=== PATIENT | female | born 1960 | race Caucasian/White ===

== ENCOUNTER → 2017-12-25 07:20 | Outpatient (CLI) | payer BC, SELFPAY ==
[2017-12-25 08:03] LABS: Basophils % 0.9 % (0.1-2.0); Eosinophils # 0.1 K/mm3 (0.0-0.4); Eosinophils % 2.4 % (0.1-12.0); Hematocrit 44.7 % (37.0-47.0); Hemoglobin 14.8 g/dL (12.2-16.2); Lymphocytes # 1.1 K/mm3 (0.7-4.5); Lymphocytes % 40.4 K/mm3 (10-50); Mean Corpuscular Hemoglobin 30.8 pg (27.0-31.2); Mean Corpuscular Volume 93.3 fl (81-99); Mean Platelet Volume 7.4 fl (7.4-10.4); Monocytes # 0.2 K/mm3 (0.1-1.0); Monocytes % 6.2 % (1.7-9.3); Neutrophils # 1.4 K/mm3 (1.8-7.8); Neutrophils % 50.2 % (37.0-80.0); Platelet Count 144 K/mm3 (142-424); Red Blood Count 4.79 M/mm3 (4.20-5.40); Red Cell Distribution Width 12.3 % (11.5-17.5); White Blood Count 2.8 K/mm3 (4.8-10.8)
[2017-12-25 08:34] LABS: Alanine Aminotransferase 67 U/L (12-78); Albumin Level 3.8 gm/dL (3.4-5.0); Albumin/Globulin Ratio 1.1 (1.1-1.8); Alkaline Phosphatase 96 U/L (46-116); Anion Gap 7.1 mEq/L (5-15); Aspartate Amino Transferase 56 U/L (15-37); Bilirubin,Total 0.3 mg/dL (0.2-1.0); Blood Urea Nitrogen 24 mg/dL (7-18); Calcium 9.8 mg/dL (8.5-10.1); Carbon Dioxide 33 mmol/L (21.0-32.0); Chloride 107 mmol/L (98-107); Creatinine,Serum 0.99 mg/dL (0.55-1.02); Estimated Glomerular Filt Rate 58 ml/min (>60); GFR (African American) 70 ML/MIN (>60); Globulin 3.4 gm/dl (1.3-3.2); Glucose 99 mg/dL (74-106); Potassium 5.1 mmoL/L (3.5-5.1); Sodium 142 mmol/L (136-145); Total Protein,Serum 7.2 gm/dL (6.4-8.2)
[2017-12-25 08:36] LABS: C-Reactive Protein < 0.2 mg/L (0.0-0.9)
[2017-12-25 09:01] LABS: Erythrocyte Sedimentation Rate 10 mm/hr (0-30)
== END ==
PROVIDERS: PCP Internal Medicine Adolescent Medicine; Visit Provider Internal Medicine
DX: L40.50 Arthropathic psoriasis, unspecified (principal); Z51.81 Encounter for therapeutic drug level monitoring
CPT/HCPCS: 36415; 80053; 85025; 85651; 86140

== ENCOUNTER → 2018-02-22 10:43 | Outpatient (CLI) | payer BC, SELFPAY ==
--- NOTE | 2018-02-22 10:45 | MM_ITS ---
MM Dig screening mamm BI w/CAD CAD Screening COMPARISON: Digital mammograms with CAD 03/25/2017 and 03/05/2016 INDICATION: There is no personal or family history of breast cancer TECHNIQUE: Standard CC and MLO images were obtained. R2 CAD reviewed. FINDINGS: Again noted is a markedly dense and somewhat homogeneous parenchymal pattern definitely lessening the sensitivity of mammography. The findings on the lateral symmetrical. There is no new or suspicious lesion in either breast and there are no suspicious microcalcifications. IMPRESSION: Diffusely dense parenchymal pattern with no suspicious lesion seen BI-RADS Category: 1 Negative RECOMMENDED FOLLOW-UP: 1YR - 1 YEAR FOLLOW-UP (A letter has been sent to the patient regarding results of the study.)
== END ==
PROVIDERS: PCP Internal Medicine Adolescent Medicine; Visit Provider Nurse Practitioner Obstetrics & Gynecology
DX: Z12.31 Encounter for screening mammogram for malignant neoplasm of breast (principal)
CPT/HCPCS: 77067

== ENCOUNTER → 2018-04-09 07:05 | Outpatient (CLI) | payer BC, SELFPAY ==
[2018-04-09 07:32] LABS: Basophils % 0.8 % (0.1-2.0); Eosinophils # 0.1 K/mm3 (0.0-0.4); Eosinophils % 1.5 % (0.1-12.0); Hematocrit 39.9 % (37.0-47.0); Hemoglobin 12.9 g/dL (12.2-16.2); Lymphocytes # 0.8 K/mm3 (0.7-4.5); Lymphocytes % 26.5 K/mm3 (10-50); Mean Corpuscular HGB Conc 32.4 g/dL (31.8-35.4); Mean Corpuscular Hemoglobin 29.8 pg (27.0-31.2); Mean Platelet Volume 7.9 fl (7.4-10.4); Monocytes # 0.2 K/mm3 (0.1-1.0); Monocytes % 5.1 % (1.7-9.3); Platelet Count 119 K/mm3 (142-424); Red Blood Count 4.34 M/mm3 (4.20-5.40); Red Cell Distribution Width 13.2 % (11.5-17.5)
[2018-04-09 08:54] LABS: Alanine Aminotransferase 63 U/L (12-78); Albumin Level 3.6 gm/dL (3.4-5.0); Albumin/Globulin Ratio 1.1 (1.1-1.8); Alkaline Phosphatase 71 U/L (46-116); Anion Gap 5.3 mEq/L (5-15); Aspartate Amino Transferase 40 U/L (15-37); Bilirubin,Total 0.5 mg/dL (0.2-1.0); Blood Urea Nitrogen 23 mg/dL (7-18); Calcium 9.9 mg/dL (8.5-10.1); Carbon Dioxide 34 mmol/L (21.0-32.0); Chloride 104 mmol/L (98-107); Creatinine,Serum 1.06 mg/dL (0.55-1.02); Estimated Glomerular Filt Rate 54 ml/min (>60); Free T4 (Free Thyroxine) 0.72 ng/dl (0.76-1.46); GFR (African American) 65 ML/MIN (>60); Globulin 3.2 gm/dl (1.3-3.2); Glucose 94 mg/dL (74-106); Potassium 4.3 mmoL/L (3.5-5.1); Sodium 139 mmol/L (136-145); Thyroid Stimulating Hormone 4.14 uIU/ml (0.358-3.740); Total Protein,Serum 6.8 gm/dL (6.4-8.2)
[2018-04-10 19:09] LABS: Thyroid Peroxidase Antibodies 8 IU/mL (0-34)
== END ==
PROVIDERS: PCP Internal Medicine Adolescent Medicine; Visit Provider Internal Medicine
DX: E03.9 Hypothyroidism, unspecified (principal); D89.9 Disorder involving the immune mechanism, unspecified; L40.50 Arthropathic psoriasis, unspecified
CPT/HCPCS: 36415; 80053; 84439; 84443; 85025; 86376

== ENCOUNTER → 2018-09-10 07:27 | Outpatient (CLI) | payer BC, SELFPAY ==
[2018-09-10 08:33] LABS: Basophils % 0.9 % (0.1-2.0); Eosinophils # 0.1 K/mm3 (0.0-0.4); Eosinophils % 2.7 % (0.1-12.0); Hematocrit 41.1 % (37.0-47.0); Hemoglobin 13.2 g/dL (12.2-16.2); Lymphocytes # 1.1 K/mm3 (0.7-4.5); Lymphocytes % 40.3 % (10-50); Mean Corpuscular HGB Conc 32.2 g/dL (31.8-35.4); Mean Corpuscular Hemoglobin 28.4 pg (27.0-31.2); Mean Corpuscular Volume 88.3 fl (81-99); Mean Platelet Volume 7.5 fl (7.4-10.4); Monocytes # 0.1 K/mm3 (0.1-1.0); Monocytes % 5.3 % (1.7-9.3); Neutrophils # 1.4 K/mm3 (1.8-7.8); Neutrophils % 50.7 % (37.0-80.0); Platelet Count 131 K/mm3 (142-424); Red Blood Count 4.65 M/mm3 (4.20-5.40); White Blood Count 2.7 K/mm3 (4.8-10.8)
[2018-09-10 09:17] LABS: Erythrocyte Sedimentation Rate 13 mm/hr (0-30)
[2018-09-10 09:26] LABS: Alanine Aminotransferase 65 U/L (12-78); Albumin Level 3.7 gm/dL (3.4-5.0); Albumin/Globulin Ratio 1.2 (1.1-1.8); Alkaline Phosphatase 67 U/L (46-116); Anion Gap 11.3 mEq/L (5-15); Aspartate Amino Transferase 44 U/L (15-37); Bilirubin,Total 0.4 mg/dL (0.2-1.0); Blood Urea Nitrogen 26 mg/dL (7-18); Calcium 9.5 mg/dL (8.5-10.1); Carbon Dioxide 30 mmol/L (21.0-32.0); Chloride 105 mmol/L (98-107); Creatinine,Serum 0.85 mg/dL (0.55-1.02); Estimated Glomerular Filt Rate 69 ml/min (>60); GFR (African American) 84 ML/MIN (>60); Potassium 4.3 mmoL/L (3.5-5.1); Sodium 142 mmol/L (136-145); Total Protein,Serum 6.7 gm/dL (6.4-8.2)
[2018-09-10 09:35] LABS: Free T4 (Free Thyroxine) 0.85 ng/dl (0.76-1.46); Thyroid Stimulating Hormone 2.07 uIU/ml (0.358-3.740)
[2018-09-10 09:42] LABS: C-Reactive Protein < 0.2 mg/L (0.0-0.9)
[2018-09-10 10:04] LABS: Glucose 45 mg/dL (74-106)
[2018-09-11 16:11] LABS: Hep A Ab, IgM Negative (Negative); Hepatitis B Core Antibody IgM Negative (Negative); Hepatitis B Surface Antigen Negative (Negative)
[2018-09-11 17:21] LABS: Hepatitis C Antibody <0.1 s/co ratio (0.0-0.9)
== END ==
PROVIDERS: Internal Medicine Endocrinology, Diabetes & Metabolism; Visit Provider Internal Medicine
DX: L40.50 Arthropathic psoriasis, unspecified (principal); D89.9 Disorder involving the immune mechanism, unspecified; R53.83 Other fatigue; E03.9 Hypothyroidism, unspecified
CPT/HCPCS: 36415; 80053; 80074; 84439; 84443; 85025; 85651; 86140

== ENCOUNTER → 2018-11-12 07:04 | Outpatient (CLI) | payer BC, SELFPAY ==
[2018-11-12 08:23] LABS: Alanine Aminotransferase 60 U/L (12-78); Albumin Level 3.8 gm/dL (3.4-5.0); Albumin/Globulin Ratio 1.1 (1.1-1.8); Alkaline Phosphatase 72 U/L (46-116); Anion Gap 9.1 mEq/L (5-15); Aspartate Amino Transferase 41 U/L (15-37); Bilirubin,Total 0.4 mg/dL (0.2-1.0); Blood Urea Nitrogen 22 mg/dL (7-18); Calcium 10.2 mg/dL (8.5-10.1); Carbon Dioxide 34 mmol/L (21.0-32.0); Chloride 105 mmol/L (98-107); Chol/HDL Ratio 2.4 (1-3.5); Cholesterol 189 mg/dL (140-200); Creatinine,Serum 0.91 mg/dL (0.55-1.02); Estimated Glomerular Filt Rate 64 ml/min (>60); Free T4 (Free Thyroxine) 0.82 ng/dl (0.76-1.46); GFR (African American) 77 ML/MIN (>60); Globulin 3.5 gm/dl (1.3-3.2); HDL Cholesterol 80 mg/dL (29-89); LDL Cholesterol 96 mg/dL (0-130); Potassium 5.1 mmoL/L (3.5-5.1); Sodium 143 mmol/L (136-145); Thyroid Stimulating Hormone 1.24 uIU/ml (0.358-3.740); Total Protein,Serum 7.3 gm/dL (6.4-8.2); Triglycerides 63 mg/dL (30-200); VLDL Cholesterol 13 mg/dL (0-40)
[2018-11-12 08:44] LABS: Glucose 45 mg/dL (74-106)
[2018-11-13 21:30] LABS: Microalbumin, Urine <3.0 ug/mL (Not Estab.)
== END ==
PROVIDERS: Visit Provider Internal Medicine Endocrinology, Diabetes & Metabolism
DX: E10.69 Type 1 diabetes mellitus with other specified complication (principal); E03.9 Hypothyroidism, unspecified
CPT/HCPCS: 36415; 80053; 80061; 82043; 84439; 84443

== ENCOUNTER → 2019-04-26 15:41 | Outpatient (CLI) | payer BC, SELFPAY ==
--- NOTE | 2019-04-26 15:42 | MM_ITS ---
PROCEDURE: MM DIG SCREENING MAMM BI W/CAD Patient Age:58Y CLINICAL INDICATION: routine screening mammogram No hormones but no new complaints. Noncontributory family history. COMPARISON: DIGMAMMS MAMMOGRAM SCREEN-SENIOR PATROL AGENT N/C from 05/25/2006 DIGMAMMDX MAMMOGRAM DX-SENIOR PATROL AGENT N/C from 06/10/2006 DIGMAMMS MAMMOGRAM SCREEN-SENIOR PATROL AGENT N/C from 07/26/2007 [facility]B DIGITAL MAMM-SCREEN BILATERAL from 10/21/2010 D[facility]B DIGITAL MAMM-SCREEN BILATERAL from 09/13/2012 DMDXUAVL DIG MAMM-DX UNI ADD VIEWS-LT from 09/28/2012 D[facility]B DIG MAMM-SCREEN KACY from 01/22/2014 D[facility]B DIG MAMM-SCREEN KACY from 03/05/2016 DMSB DIG MAMM-SCREEN KACY W/CAD from 03/25/2017 [facility] MM Dig screening mamm BI w/CAD from 02/22/2018 TECHNIQUE: Standard CC and MLO images were obtained. R2 CAD reviewed. Additional right MLO nipple profile views included FINDINGS: Diffuse vishnu increased density throughout both breast but dense breast tissue most evident anterior breast retroareolar region but and extending from this area into the remainder of the breast. Mammography is a significant decrease sensitivity in breast of this diffuse prominent increased density as areas can be obscured. However when compared to multiple prior studies I see no dominant nor new suspicious mass but no architecture distortion. The area of density superior left breast has been on multiple studies dating back to at least 2010 digital exam. When projection and a technique is considered I see no convincing change here. Follow-up 1 year adequate CADComputer review highlights no significant areas of concern. . Would encourage breast examination including self-breast examination and if any focal or palpable areas arise ultrasound is a useful complement/augment to mammography within breast of this increased density No new suspicious nor dominant mass nor suspicious calcifications. No suspicious calcifications IMPRESSION: 1. Very dense breasts tissue bilaterally significantly decreases sensitivity of mammography. 2. However see no new areas of significant concern . Overall stable mammogram No new suspicious nor dominant mass nor suspicious calcifications. No suspicious calcifications 3. Follow-up 1 year recommended BI-RAD Category: 2 Benign Finding(s) FOLLOW-UP: 1YR 1 Year Follow-up (A letter has been sent to the patient regarding results of the study.) Dictated by: Omar Hyman MD 04/28/2019 10:00 Electronically signed by Omar Hyman MD in [place] 04/28/2019 10:00
== END ==
PROVIDERS: PCP Internal Medicine Adolescent Medicine; Visit Provider Nurse Practitioner Obstetrics & Gynecology
DX: Z12.31 Encounter for screening mammogram for malignant neoplasm of breast (principal)
CPT/HCPCS: 77067

== ENCOUNTER → 2019-06-03 07:05 | Outpatient (CLI) | payer BC, SELFPAY ==
[2019-06-03 07:29] LABS: Eosinophils # 0.1 K/mm3 (0.0-0.4); Eosinophils % 1.5 % (0.1-12.0); Hematocrit 47.4 % (37.0-47.0); Lymphocytes # 1.2 K/mm3 (0.7-4.5); Lymphocytes % 37.6 % (10-50); Mean Corpuscular HGB Conc 31.6 g/dL (31.8-35.4); Mean Corpuscular Hemoglobin 29.5 pg (27.0-31.2); Mean Corpuscular Volume 93.3 fl (81-99); Monocytes # 0.2 K/mm3 (0.1-1.0); Monocytes % 6.4 % (1.7-9.3); Neutrophils # 1.7 K/mm3 (1.8-7.8); Neutrophils % 53.6 % (37.0-80.0); Platelet Count 166 K/mm3 (142-424); Red Blood Count 5.08 M/mm3 (4.20-5.40); Red Cell Distribution Width 13.2 % (11.5-17.5); White Blood Count 3.2 K/mm3 (4.8-10.8)
[2019-06-03 08:46] LABS: Erythrocyte Sedimentation Rate 13 mm/hr (0-30)
[2019-06-03 08:54] LABS: Alanine Aminotransferase 59 U/L (12-78); Albumin Level 3.9 gm/dL (3.4-5.0); Albumin/Globulin Ratio 1.1 (1.1-1.8); Alkaline Phosphatase 93 U/L (46-116); Anion Gap 10.2 mEq/L (5-15); Aspartate Amino Transferase 44 U/L (15-37); Bilirubin,Total 0.5 mg/dL (0.2-1.0); Blood Urea Nitrogen 21 mg/dL (7-18); Calcium 9.9 mg/dL (8.5-10.1); Carbon Dioxide 31 mmol/L (21.0-32.0); Chloride 104 mmol/L (98-107); Creatinine,Serum 1.01 mg/dL (0.55-1.02); Estimated Glomerular Filt Rate 56 ml/min (>60); GFR (African American) 68 ML/MIN (>60); Globulin 3.5 gm/dl (1.3-3.2); Glucose 56 mg/dL (74-106); Potassium 4.2 mmoL/L (3.5-5.1); Sodium 141 mmol/L (136-145); Total Protein,Serum 7.4 gm/dL (6.4-8.2)
[2019-06-03 08:59] LABS: Chol/HDL Ratio 1.9 (1-3.5); Cholesterol 191 mg/dL (140-200); HDL Cholesterol 103 mg/dL (29-89); LDL Cholesterol 79 mg/dL (0-130); Thyroid Stimulating Hormone 2.19 uIU/ml (0.358-3.740); Triglycerides 47 mg/dL (30-200); VLDL Cholesterol 9 mg/dL (0-40)
[2019-06-03 09:04] LABS: C-Reactive Protein < 0.2 mg/dL (0.0-0.9)
[2019-06-06 12:57] LABS: Microalbumin, Urine 36.1 ug/mL (Not Estab.)
== END ==
PROVIDERS: Internal Medicine Endocrinology, Diabetes & Metabolism; Visit Provider Nurse Practitioner Women's Health
DX: D89.9 Disorder involving the immune mechanism, unspecified (principal); L40.50 Arthropathic psoriasis, unspecified; E10.69 Type 1 diabetes mellitus with other specified complication; E03.9 Hypothyroidism, unspecified
CPT/HCPCS: 36415; 80053; 80061; 82043; 84439; 84443; 85025; 85651; 86140

== ENCOUNTER 2020-01-30 16:04 | Emergency (ER) | payer OTHER, SELFPAY ==
[2020-01-30 16:06] VITALS: BP 149/78; PULSE 78; RESP 18; TEMP 36.6; O2SAT 98
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
[2020-01-30 16:42] VITALS: BP 134/74; PULSE 78; RESP 16; TEMP 36.6; O2SAT 98
== END 2020-01-30 16:44 | disposition home or self-care (01) ==
PROVIDERS: Emergency Provider Family Medicine; PCP Internal Medicine Adolescent Medicine
DX: T07.XXXA Unspecified multiple injuries, initial encounter (principal); V49.3XXA Car occupant (driver) (passenger) injured in unspecified nontraffic accident, initial encounter; Y92.414 Local residential or business street as the place of occurrence of the external cause; E10.649 Type 1 diabetes mellitus with hypoglycemia without coma; Z79.4 Long term (current) use of insulin
CPT/HCPCS: 99281

== ENCOUNTER → 2020-02-24 07:21 | Outpatient (CLI) | payer BC, SELFPAY ==
[2020-02-24 07:44] LABS: Basophils % 0.8 % (0.1-2.0); Eosinophils # 0.1 K/mm3 (0.0-0.4); Eosinophils % 2.5 % (0.1-12.0); Hematocrit 41.7 % (37.0-47.0); Hemoglobin 14.1 g/dL (12.2-16.2); Lymphocytes # 1.8 K/mm3 (0.7-4.5); Lymphocytes % 42.2 % (10-50); Mean Corpuscular HGB Conc 33.9 g/dL (31.8-35.4); Mean Corpuscular Hemoglobin 30.5 pg (27.0-31.2); Mean Corpuscular Volume 90.1 fl (81-99); Monocytes # 0.2 K/mm3 (0.1-1.0); Monocytes % 5.7 % (1.7-9.3); Neutrophils # 2.1 K/mm3 (1.8-7.8); Neutrophils % 48.9 % (37.0-80.0); Platelet Count 152 K/mm3 (142-424); Red Blood Count 4.63 M/mm3 (4.20-5.40); Red Cell Distribution Width 13.8 % (11.5-17.5); White Blood Count 4.3 K/mm3 (4.8-10.8)
[2020-02-24 08:19] LABS: Erythrocyte Sedimentation Rate 11 mm/hr (0-30)
[2020-02-24 08:48] LABS: Hemoglobin A1C 5.2 % (4.0-6.0)
[2020-02-24 08:50] LABS: Creatinine,Urine Random 84 mg/dL (Not Estab.)
[2020-02-24 08:53] LABS: Microalbumin < 6.000 mg/L (0-16.7)
[2020-02-24 09:04] LABS: Chloride 101 mmol/L (98-107); Potassium 4.6 mmoL/L (3.5-5.1); Sodium 141 mmol/L (136-145)
[2020-02-24 09:05] LABS: Chloride 101 mmol/L (98-107); Potassium 4.4 mmoL/L (3.5-5.1); Sodium 140 mmol/L (136-145)
[2020-02-24 09:07] LABS: Anion Gap 12.6 mEq/L (5-15); Blood Urea Nitrogen 25 mg/dl (7-17); Carbon Dioxide 32 mmol/L (22.0-30.0); Cholesterol 181 mg/dl (140-200); Estimated Glomerular Filt Rate 74 ml/min (>60); GFR (African American) 89 ML/MIN (>60); Triglycerides 87 mg/dl (30-150); VLDL Cholesterol 17 mg/dL (0-40)
[2020-02-24 09:08] LABS: Alanine Aminotransferase 42 U/L (12-78); Albumin Level 4.2 g/dl (3.5-5.0); Albumin/Globulin Ratio 1.5 (1.1-1.8); Alkaline Phosphatase 68 U/L (38-126); Anion Gap 11.4 mEq/L (5-15); Aspartate Amino Transferase 49 U/L (14-36); Bilirubin,Total 0.4 mg/dl (0.2-1.3); Blood Urea Nitrogen 25 mg/dl (7-17); Carbon Dioxide 32 mmol/L (22.0-30.0); Estimated Glomerular Filt Rate 86 ml/min (>60); GFR (African American) 104 ML/MIN (>60); Globulin 2.8 g/dL (1.3-3.2); Glucose 72 mg/dl (74-100)
[2020-02-24 09:08] LABS: Chol/HDL Ratio 2.2 (1-3.5); Glucose 71 mg/dl (74-100); HDL Cholesterol 81 mg/dl (40-60)
[2020-02-24 09:18] LABS: Direct LDL Cholesterol 84.83 mg/dL (100-129)
[2020-02-24 09:27] LABS: C-Reactive Protein < 0.3 mg/L (0-4)
[2020-02-24 09:38] LABS: Thyroid Stimulating Hormone 1.68 uIU/mL (0.465-4.68)
== END ==
PROVIDERS: Nurse Practitioner Women's Health; PCP Internal Medicine Adolescent Medicine; Visit Provider Internal Medicine Endocrinology, Diabetes & Metabolism
DX: E10.69 Type 1 diabetes mellitus with other specified complication (principal); D89.9 Disorder involving the immune mechanism, unspecified; L40.50 Arthropathic psoriasis, unspecified; Z79.4 Long term (current) use of insulin
CPT/HCPCS: 36415; 80048; 80053; 80061; 82043; 82570; 83036; 84443; 85025; 85651; 86140

== ENCOUNTER → 2020-04-23 15:06 | Outpatient (CLI) | payer BC, SELFPAY ==
--- NOTE | 2020-04-23 15:10 | XR_ITS ---
PROCEDURE: XR FOOT LT MIN 3V CLINICAL INDICATION: CELLULITIS OF L FOOT COMPARISON: No exams were available for comparison FINDINGS: There is a comminuted fracture involving the proximal aspect of the proximal phalanx of the great toe. There is mild lateral displacement of the lateral fracture fragment by approximately 4 mm. The fracture fragments are somewhat ill-defined. This is nonspecific and could be seen with different stages of healing. There are no old exams made available for comparison. There is a mild displaced fracture involving the head of the 2nd and 3rd metatarsals with medial displacement of the distal fracture fragments. A longitudinal fracture involves the base of the proximal phalanx of the 4th toe extending into the metatarsophalangeal joint space. There is mild dorsal angulation of the distal fracture fragment. IMPRESSION: Comminuted fracture proximal phalanx 2nd toe with nondisplaced fractures at the head of the 2nd and 3rd metatarsals and nondisplaced intra-articular fracture at the base of the proximal phalanx of the 4th toe. The fracture fragments of the great toe are ill-defined with some decreased density which could be due to subacute healing phase. Osteomyelitis would be included in the differential diagnosis. Please correlate with clinical parameters. Correlation with old studies may also be of further value. None are available at this institution Dictated by: Lincoln Phillip MD 04/23/2020 16:47 Lincoln Phillip MD in [place] 04/23/2020 16:47
== END ==
PROVIDERS: PCP Nurse Practitioner Family; Visit Provider Nurse Practitioner Family
DX: L03.116 Cellulitis of left lower limb (principal)
CPT/HCPCS: 73630

== ENCOUNTER 2020-04-24 14:34 | Outpatient (RCR) | payer BC, SELFPAY | END 2020-04-24 15:20 | disposition home or self-care (01) | LOC: PT 14:34 | PROVIDERS: Visit Provider Internal Medicine Adolescent Medicine | DX: S92.909A Unspecified fracture of unspecified foot, initial encounter for closed fracture (principal) ==

== ENCOUNTER → 2020-04-24 14:48 | Outpatient (CLI) | payer BC, SELFPAY ==
--- NOTE | 2020-04-24 15:49 | MR_ITS ---
PROCEDURE: MR FOOT LT WO/W CON CLINICAL INDICATION: CELLULITIS OF LEFT FOOT pt fell x2wks ago. foot selling. COMPARISON: CR XR FOOT LT MIN 3V from 04/23/2020 TECHNIQUE: Routine multiplanar multi echo sequences are performed without and with gadolinium enhancement. FINDINGS: There is increased T2 signal involving the distal aspect of the calcaneus and the proximal aspect of the cuboid at the calcaneocuboid junction. This does demonstrate contrast enhancement. There is also increased T2 signal involving the distal and mid aspect of the 1st metatarsal. There is a comminuted fracture at the proximal phalanx of the great toe. There is mild diffuse subcutaneous edema. No abscess is evident. No obvious ligamentous or tendinous abnormalities. No fistulous tracts. IMPRESSION: 1. Abnormal bone marrow signal intensity at the distal aspect of the calcaneus and calcaneocuboid junction which does demonstrate contrast enhancement. This is nonspecific and could be inflammatory or infectious. No joint effusion is evident at this area 2. Comminuted fracture of the proximal phalanx of the great toe also with bone marrow edema at this area. Bone marrow edema also noted at the distal and mid aspect of the 1st metatarsal which could be posttraumatic inflammatory or infectious. 3. Mild diffuse subcutaneous soft tissue swelling. No abscess or fistulous track apparent. Dictated by: Lincoln Phillip MD 04/28/2020 10:13 Lincoln Phillip MD in [place] 04/28/2020 10:13
[2020-04-24 16:03] LABS: Blood Urea Nitrogen 20 mg/dl (7-17); Estimated Glomerular Filt Rate 86 ml/min (>60); GFR (African American) 104 ML/MIN (>60)
== END ==
PROVIDERS: Visit Provider Internal Medicine Adolescent Medicine
DX: L03.116 Cellulitis of left lower limb (principal)
CPT/HCPCS: 36415; 73720; 82565; 84520; A9576

== ENCOUNTER → 2020-04-29 12:15 | Outpatient (CLI) | payer BC, SELFPAY ==
[2020-04-29 13:11] LABS: Basophils % 0.9 % (0.1-2.0); Eosinophils # 0.1 K/mm3 (0.0-0.4); Eosinophils % 1.3 % (0.1-12.0); Hematocrit 40.6 % (37.0-47.0); Hemoglobin 13.4 g/dL (12.2-16.2); Lymphocytes # 1.4 K/mm3 (0.7-4.5); Lymphocytes % 29.8 % (10-50); Mean Corpuscular Hemoglobin 30.2 pg (27.0-31.2); Mean Corpuscular Volume 91.6 fl (81-99); Monocytes # 0.3 K/mm3 (0.1-1.0); Monocytes % 6.5 % (1.7-9.3); Neutrophils # 2.9 K/mm3 (1.8-7.8); Neutrophils % 61.5 % (37.0-80.0); Platelet Count 189 K/mm3 (142-424); Red Blood Count 4.43 M/mm3 (4.20-5.40); Red Cell Distribution Width 13.8 % (11.5-17.5); White Blood Count 4.8 K/mm3 (4.8-10.8)
[2020-04-29 13:19] LABS: Hemoglobin A1C 5.3 % (4.0-6.0)
[2020-04-29 13:43] LABS: Erythrocyte Sedimentation Rate 18 mm/hr (0-30)
[2020-04-29 13:46] LABS: Chloride 101 mmol/L (98-107); Potassium 4.9 mmoL/L (3.5-5.1); Sodium 139 mmol/L (136-145)
[2020-04-29 13:49] LABS: Alanine Aminotransferase 34 U/L (12-78); Albumin Level 4.1 g/dl (3.5-5.0); Albumin/Globulin Ratio 1.4 (1.1-1.8); Alkaline Phosphatase 100 U/L (38-126); Anion Gap 10.9 mEq/L (5-15); Aspartate Amino Transferase 44 U/L (14-36); Bilirubin,Total 0.3 mg/dl (0.2-1.3); Blood Urea Nitrogen 20 mg/dl (7-17); Calcium 10.3 mg/dl (8.4-10.2); Carbon Dioxide 32 mmol/L (22.0-30.0); Estimated Glomerular Filt Rate 74 ml/min (>60); GFR (African American) 89 ML/MIN (>60); Glucose 109 mg/dl (74-100); Total Protein,Serum 7.1 g/dl (6.3-8.2)
[2020-04-29 14:17] LABS: C-Reactive Protein < 0.3 mg/L (0-4)
== END ==
PROVIDERS: Visit Provider Podiatrist
DX: T14.8XXA Other injury of unspecified body region, initial encounter (principal); M14.672 Charcot's joint, left ankle and foot
CPT/HCPCS: 36415; 80053; 83036; 85025; 85651; 86140

== ENCOUNTER → 2020-04-30 12:53 | Outpatient (CLI) | payer BC, SELFPAY ==
--- NOTE | 2020-04-30 12:53 | MM_ITS ---
PROCEDURE: MM DIG SCREENING MAMM BI W/CAD Referring Doctor: Tyron Ordonez Patient Age:59Y CLINICAL INDICATION: screening xmg. No hormones, no new complaints. Noncontributory family history COMPARISON: MG MG [facility]MSB DIGITAL MAMM-SCREEN BILATERAL from 10/21/2010 MG DMSB DIGITAL MAMM-SCREEN BILATERAL from 09/13/2012 MG DMDXUAVL DIG MAMM-DX UNI ADD VIEWS-LT from 09/28/2012 MG DMSB DIG MAMM-SCREEN KACY from 01/22/2014 MG DMSB DIG MAMM-SCREEN KACY from 03/05/2016 MG DMSB DIG MAMM-SCREEN KACY W/CAD from 03/25/2017 MG [facility] MM Dig screening mamm BI w/CAD from 02/22/2018 MG MM DIG SCREENING MAMM BI W/CAD from 04/26/2019 TECHNIQUE: Standard CC and MLO images were obtained. R2 CAD reviewed. Bilateral digital breast tomosynthesis included. Additional axillary CC views both breast were included FINDINGS: Very dense breast pattern again seen bilaterally. Mammography of decreased sensitivity in breast of this diffuse increased density as areas can be obscured. With very dense breast of this character ultrasound, or MRI, can be alternative imaging methods for screening. However when compared to multiple previous studies we see no discrete new areas of concern. no dominant mass identified. No suspicious calcifications no discrete new areas of significant concern in either breast. Right breast: No new areas of significant concern Left breast: No new areas significant concern Small area of density at the deep left breast on CC view was seen back on 2010 CC view mammogram and seems dissipates on the tomosynthesis views. Bilateral follow-up in 1 year recommended. IMPRESSION: Stable bilateral mammogram. Very dense breasts bilaterally limit mammography, but no new areas of significant concern identified in either breast Bilateral follow-up not over 1 year recommended BI-RAD Category: 2 Benign Finding(s) FOLLOW-UP: 1YR 1 Year Follow-up (A letter has been sent to the patient regarding results of the study.) Dictated by: Omar Hyman MD 05/06/2020 22:04 Omar Hyman MD in [place] 05/06/2020 22:04
== END ==
PROVIDERS: PCP Internal Medicine Adolescent Medicine; Visit Provider Nurse Practitioner Obstetrics & Gynecology
DX: Z12.31 Encounter for screening mammogram for malignant neoplasm of breast (principal)
CPT/HCPCS: 77063; 77067

== ENCOUNTER → 2020-05-06 13:54 | Outpatient (CLI) | payer BC, SELFPAY ==
--- NOTE | 2020-05-06 13:58 | XR_ITS ---
PROCEDURE: XR FOOT WT BEARING LT 3V CLINICAL INDICATION: fracture follow up. COMPARISON: CR XR FOOT LT MIN 3V from 04/23/2020 FINDINGS: Comminuted fracture involves the proximal aspect of the proximal phalanx of the great toe with intra-articular extension. There is separation of the fracture fragments with lateral displacement of the lateral component by approximately 4 mm. Nondisplaced fracture involves the proximal aspect of the proximal phalanx of the 4th toe. IMPRESSION: No change 1st and 4th toe fractures Dictated by: Lincoln Phillip MD 05/06/2020 16:56 Lincoln Phillip MD in [place] 05/06/2020 16:56
== END ==
PROVIDERS: PCP Internal Medicine Adolescent Medicine; Visit Provider Podiatrist
DX: S93.322D Subluxation of tarsometatarsal joint of left foot, subsequent encounter (principal); S90.512D Abrasion, left ankle, subsequent encounter; R60.0 Localized edema; T14.8XXA Other injury of unspecified body region, initial encounter
CPT/HCPCS: 73630

== ENCOUNTER → 2020-05-20 14:05 | Outpatient (CLI) | payer BC, SELFPAY ==
--- NOTE | 2020-05-20 14:09 | XR_ITS ---
PROCEDURE: XR FOOT WT BEARING LT 3V CLINICAL INDICATION: fracture follow up. COMPARISON: CR XR FOOT LT MIN 3V from 04/23/2020 CR XR FOOT WT BEARING LT 3V from 05/06/2020 FINDINGS: Comminuted fracture once again noted involving the proximal aspect of the proximal phalanx of the great toe with separation of the proximal fracture fragments. There does appear to be some developing callus formation the fracture extends into the articular surface proximally. There is also a fracture of the proximal aspect of the proximal phalanx of the 4th toe with extension into the proximal articular surface. There is a lucency noted at this region which could be sequela from the fracture itself. Healing fractures are present at the head of the 2nd and 3rd metatarsals. IMPRESSION: Healing fractures of the left foot as described above Dictated by: Lincoln Phillip MD 05/20/2020 14:30 Lincoln Phillip MD in [place] 05/20/2020 14:30
== END ==
PROVIDERS: PCP Internal Medicine Adolescent Medicine; Visit Provider Podiatrist
DX: S92.322A Displaced fracture of second metatarsal bone, left foot, initial encounter for closed fracture (principal); S92.332A Displaced fracture of third metatarsal bone, left foot, initial encounter for closed fracture; S92.402A Displaced unspecified fracture of left great toe, initial encounter for closed fracture; S92.502A Displaced unspecified fracture of left lesser toe(s), initial encounter for closed fracture; T14.8XXA Other injury of unspecified body region, initial encounter
CPT/HCPCS: 73630

== ENCOUNTER → 2020-06-06 14:01 | Outpatient (CLI) | payer BC, SELFPAY ==
--- NOTE | 2020-06-06 14:04 | XR_ITS ---
PROCEDURE: XR FOOT WT BEARING LT 3V CLINICAL INDICATION: fracture follow up, [place] COMPARISON: No exams were available for comparison FINDINGS: Comminuted displaced fracture with intra-articular involvement once again noted involving the proximal phalanx of the great toe with overlying soft tissue swelling overall not significantly changed. Healing fractures are present involving the distal aspect of the 2nd and 3rd metatarsals and there is a healing fracture involving the proximal aspect of the proximal phalanx of the 4th toe and the proximal aspect of the proximal phalanx of the 5th toe. IMPRESSION: No change multiple fractures as described above Dictated by: Lincoln Phillip MD 06/06/2020 15:31 Lincoln Phillip MD in [place] 06/06/2020 15:31
== END ==
PROVIDERS: PCP Internal Medicine Adolescent Medicine; Visit Provider Podiatrist
DX: M14.672 Charcot's joint, left ankle and foot (principal); T14.8XXA Other injury of unspecified body region, initial encounter
CPT/HCPCS: 73630

== ENCOUNTER 2020-06-17 15:00 | Outpatient (RCR) | payer BC, SELFPAY ==
--- NOTE | 2020-06-04 11:56 | HMH.PTOPWND ---
Rehab Outpt Wound Evaluation Rehab OP Wound Evaluation Start: 06/04/20 11:48 Freq: Status: Active Protocol: Document 06/04/20 11:50 LAVELL (Rec: 06/04/20 11:56 PHORKIMMIE [id number]) Electronically Signed By Tarik Thakur, PT 06/04/20 11:50 Subjective/History History History Pt is 59 yowf who presents with c/o L foot and ankle edema ~ 5 wks S/P tripping and breaking bones in her L foot. She has multiple small fxs from L 1st -4th toe which now appear to be healing based on most recent X-ray. She reports no pain currently, just swelling and now has a small wound noted on the ant L ankle . This wound is most likely due to the cam walker that she reports she wears 24 hrs a day. She reports PMH of DM-I (last A1c= 5.3%) and x 2. Subjective Subjective Pt reports no c/o pain this date. Lymphedema Eval Classification of Lymphedema Secondary Lymphedema Yes Stemmer's sign Stemmer's Sign no Stage of Lymphedema Lymphedema stages Stage I (Pitting edema, reduces w/ elevation, no fibrosis) Skin Changes Dry Skin Yes Other Changes Yes Pain Scale Pain Scale (0-10) 0 Affected Extremities Areas Affected by Lymphedema/Edema Left Lower Extremity Manual Lymphatic Drainage Treatment Area MLD Treatment Area Left Lower Extremity Wound Problems/Impairments Impairments Problems/Impairmments Palpation Tenderness,Impaired Gait Pattern,Impaired Walking, Impaired Standing,Increased Edema,Lymphedema Present, Impaired Self Care/Self Management Prognosis Rehab Potential Good Clinical Impression Consistent with Diagnosis Yes Short Term Goals Number of Weeks 4 Increase Ability to Walk Yes Decrease Edema Yes Patient to Understand Lymphedema Yes Treatment and Exercises Machine Washer Goals Number of Weeks 8 Decreased Palpation Tenderness Yes: 0/4 Return to Recreational Activities Yes Decrease Lymphedema Yes Patient to be Ind w/ HEP Yes Patien
== END 2020-06-17 16:04 | disposition home or self-care (01) ==
LOC: PT 15:00
PROVIDERS: PCP Internal Medicine Adolescent Medicine; Visit Provider Podiatrist
DX: I89.0 Lymphedema, not elsewhere classified (principal)
CPT/HCPCS: 97110; 97140; 97162; 97760

== ENCOUNTER → 2020-07-11 14:00 | Outpatient (CLI) | payer BC, SELFPAY ==
--- NOTE | 2020-07-11 14:03 | XR_ITS ---
PROCEDURE: XR FOOT WT BEARING LT 3V CLINICAL INDICATION: post-op Follow-up surgery COMPARISON: CR XR FOOT LT MIN 3V from 04/23/2020 CR XR FOOT WT BEARING LT 3V from 05/06/2020 CR XR FOOT WT BEARING LT 3V from 05/20/2020 CR XR FOOT WT BEARING LT 3V from 06/06/2020 FINDINGS: Severely comminuted fracture involves the proximal phalanx of the great toe as before. There is separation of the fracture fragments at the articular surface. Nondisplaced fractures which are healing involve the distal aspect of the 2nd and 3rd metatarsals and at the proximal phalanx of the 4th toe. IMPRESSION: No change in the multiple fractures as described Dictated by: Lincoln Phillip MD 07/11/2020 16:30 Lincoln Phillip MD in [place] 07/11/2020 16:30
== END ==
PROVIDERS: PCP Internal Medicine Adolescent Medicine; Visit Provider Podiatrist
DX: M79.672 Pain in left foot (principal)
CPT/HCPCS: 73630

== ENCOUNTER → 2020-07-12 13:36 | Outpatient (CLI) | payer BC, SELFPAY ==
--- NOTE | 2020-07-12 13:36 | CT_ITS ---
PROCEDURE: CT FOOT LT WO CON CLINICAL HISTORY: fracture evaluation, surgical planning Left big toe fracture, injured 04/28/20 non-healing, continued pain COMPARISON: CR XR FOOT WT BEARING LT 3V from 07/11/2020 TECHNIQUE: Axial images obtained with sagittal and coronal reformats. All CT scans at the facility use one or more dose reduction, viz: automated exposure control, ma/kV adjustment per patient size (including targeted exams where dose is matched to indication, i.e. head), or iterative reconstruction technique. FINDINGS: There is a comminuted fracture involving the proximal phalanx of the great toe. There is intra-articular involvement of the fracture with mild separation of the fracture fragments at the articular surface. The fracture lines do not demonstrate bony healing. There appears to be a soft tissue defect along the dorsal aspect of the toe at this level with a minimal amount of soft tissue gas versus a small tissue defect at this area. Correlation with physical exam needed. No evidence of abscess.. No obvious evidence osteomyelitis. The distal aspect of the 1st metatarsal has an unremarkable appearance. There is a healing fracture involving the distal aspect of the 2nd metatarsal. Fracture line is still visible along the peripheral margins of this fracture. Healing fracture also noted at the distal aspect of the 3rd metatarsal. Healing fractures also present at the proximal aspect of the proximal phalanx of the 4th toe and the proximal phalanx the 5th toe at the articular margins. No bony destructive process is evident. Soft tissue swelling is present at the tarsal metatarsal junction greater along the great toe region. There is mild diffuse vascular calcification. IMPRESSION: 1. Ununited comminuted fracture at the proximal phalanx of the great toe as described above. 2. Healing fractures of the cyst 2nd and 3rd metatarsal and the proximal phalanx of the 4th and 5th metatarsals. 3. No obvious evidence of osteomyelitis. 4. There is some diffuse soft tissue swelling in the foot without evidence of abscess. Dictated by: Lincoln Phillip MD 07/14/2020 09:34 Lincoln Phillip MD in [place] 07/14/2020 09:34
== END ==
PROVIDERS: PCP Internal Medicine Adolescent Medicine; Visit Provider Podiatrist
DX: M14.672 Charcot's joint, left ankle and foot (principal); S92.322A Displaced fracture of second metatarsal bone, left foot, initial encounter for closed fracture; S92.332A Displaced fracture of third metatarsal bone, left foot, initial encounter for closed fracture; S92.402A Displaced unspecified fracture of left great toe, initial encounter for closed fracture; S92.502A Displaced unspecified fracture of left lesser toe(s), initial encounter for closed fracture
CPT/HCPCS: 73700

== ENCOUNTER → 2020-07-23 12:24 | Outpatient (CLI) | payer BC, SELFPAY ==
--- NOTE | 2020-07-23 12:53 | XR_ITS ---
PROCEDURE: XR CHEST 2V CLINICAL HISTORY: DM II...occ chest pain COMPARISON: CR CXR2 CHEST-AP VIEW ONLY from 02/22/2013 FINDINGS: The cardiomediastinal silhouette and pulmonary vascularity are within normal limits. The lungs are clear without infiltrates, suspicious nodules, or pleural effusions. No acute bony abnormalities. IMPRESSION: No acute findings. Dictated by: Lincoln Phillip MD 07/23/2020 14:01 Lincoln Phillip MD in [place] 07/23/2020 14:01
[2020-07-23 13:00] LABS: Eosinophils # 0.1 K/mm3 (0.0-0.4); Eosinophils % 1.9 % (0.1-12.0); Hematocrit 39.9 % (37.0-47.0); Lymphocytes # 1.4 K/mm3 (0.7-4.5); Lymphocytes % 33.2 % (10-50); Mean Corpuscular HGB Conc 32.5 g/dL (31.8-35.4); Mean Corpuscular Hemoglobin 28.6 pg (27.0-31.2); Mean Corpuscular Volume 87.8 fl (81-99); Mean Platelet Volume 7.8 fl (7.4-10.4); Monocytes # 0.2 K/mm3 (0.1-1.0); Monocytes % 5.5 % (1.7-9.3); Neutrophils # 2.5 K/mm3 (1.8-7.8); Neutrophils % 58.4 % (37.0-80.0); Platelet Count 160 K/mm3 (142-424); Red Blood Count 4.55 M/mm3 (4.20-5.40); Red Cell Distribution Width 14.1 % (11.5-17.5); White Blood Count 4.3 K/mm3 (4.8-10.8)
--- NOTE | 2020-07-23 13:16 | ECG_ITS ---
APPROVED REPORT Exam: Resting ECG HR:61 bpm ECG Measurements Heart Rate 61 AXES IN 156 P 65 QRSd 80 QRS 8 QT 416 T 47 QTc 418 Conclusion Normal sinus rhythm Possible Left atrial enlargement Low voltage QRS Borderline ECG Electronically signed by : Choco Thomas, 07/24/2020 11:57:52
[2020-07-23 14:06] LABS: Chloride 101 mmol/L (98-107); Sodium 138 mmol/L (136-145)
[2020-07-23 14:08] LABS: Alanine Aminotransferase 47 U/L (12-78); Aspartate Amino Transferase 53 U/L (14-36); Bilirubin,Total 0.4 mg/dl (0.2-1.3); Blood Urea Nitrogen 18 mg/dl (7-17); Estimated Glomerular Filt Rate 74 ml/min (>60); GFR (African American) 89 ML/MIN (>60)
[2020-07-23 14:09] LABS: Albumin Level 4.4 g/dl (3.5-5.0); Albumin/Globulin Ratio 1.3 (1.1-1.8); Alkaline Phosphatase 125 U/L (38-126); Calcium 10.2 mg/dl (8.4-10.2); Carbon Dioxide 32 mmol/L (22.0-30.0); Globulin 3.3 g/dL (1.3-3.2); Glucose 121 mg/dl (74-100); Total Protein,Serum 7.7 g/dl (6.3-8.2)
[2020-07-23 14:23] LABS: C-Reactive Protein < 0.3 mg/L (0-4)
[2020-07-23 14:24] LABS: 25-OH Vitamin D, Total 41.8 ng/mL (30-100)
[2020-07-23 14:34] LABS: Erythrocyte Sedimentation Rate 125 mm/hr (0-30)
[2020-07-25 07:22] LABS: Hep A Ab, IgM Negative (Negative); Hepatitis B Core Antibody IgM Negative (Negative); Hepatitis B Surface Antigen Negative (Negative)
[2020-07-25 10:03] LABS: Hepatitis C Antibody <0.1 s/co ratio (0.0-0.9)
[2020-07-26 10:27] LABS: QuantiFERON-TB Gold Plus Negative (Negative)
== END ==
PROVIDERS: PCP Internal Medicine; Visit Provider Podiatrist
DX: Z01.818 Encounter for other preprocedural examination (principal); M14.672 Charcot's joint, left ankle and foot
CPT/HCPCS: 36415; 71046; 80053; 80074; 82306; 85025; 85651; 86140; 86480; 93005

== ENCOUNTER → 2020-07-29 12:06 | Outpatient (CLI) | payer BC, SELFPAY ==
[2020-07-29 14:39] LABS: Coronavirus 19 IgG Antibody Negative (Negative); Coronavirus 19 IgM Antibody Negative (Negative)
== END ==
PROVIDERS: Visit Provider Podiatrist
DX: Z01.818 Encounter for other preprocedural examination (principal); Z03.818 Encounter for observation for suspected exposure to other biological agents ruled out; M14.672 Charcot's joint, left ankle and foot
CPT/HCPCS: 36415; 86328

== ENCOUNTER 2020-07-31 08:29 | Day surgery (SDC) | payer BC, SELFPAY ==
[2020-07-30 08:34] VITALS: BMI 20.7
[2020-07-31 08:54] VITALS: BP 136/76; PULSE 74; RESP 18; TEMP 36.8; O2SAT 98
[2020-07-31 08:57] LABS: POC Glucose,Bedside 120 (70-110)
--- NOTE | 2020-07-31 09:31 | HMH.OPNOTE ---
Date of procedure: 07/31/20 Pre-op Diagnosis:: 1. Left Charcot foot 2. Left displaced communited proximal phalanx hallux fracture 3. Left foot ulcer 4. Left foot osteoarthritis 5. Left 1st MPJ synovitis 6. Diabetes mellitus, peripheral neuropathy Post-op Diagnosis:: Same Procedure performed:: 1. Left excision of fracture fragment 2. Left bone biopsy 3. Left resection of proximal phalanx 4. Left first MPJ synovectomy 5. Left debridement of non-viable soft tissue/ulcer excision with delayed primary closure (DPC) 6. Left application of antibiotic bead/graft Surgeon:: Krystle Cook DPM STENCIL PRINTER:: Yong Lara Anesthesia: MAC, regional (Left popliteal nerve block) Estimated blood loss (mL): 10 Clinical Note:: I reviewed and discussed images with the patient. Overall there is no significant fracture healing noted to the fracture site. We discussed conservative versus surgical treatment. I explained conservative care would include continued immobilization in the fracture boot then transition into a supportive tennis shoe as pain and edema allows. Surgery would entail ORIF of the fractures versus left first MPJ arthrodesis vs fracture excision and bone biospy. I explained the second and third metatarsals and fourth toe fractures are stable with obvious callus formation. The hallux proximal phalanx fracture is the one of concern due to its intra-articular nature and the distraction of cartilage on the toe. I explained this could lead to posttraumatic osteoarthritis, stiffness in the joint, prolonged/permanent edema, pain. There is also the wound now. I explained how opening in the skin could cause cellulitis or even osteomyelitis. We discussed surgery to include a bone biopsy. Patient understands the risks and would like to proceed with minimal surgery. Patient also explained she does not want to have a general anesthesia. I explained that she can have MAC with local nerve block, but that would be up to anesthesia. We discussed surgical intervention for excision of the left hallux fracture fragment, cheilectomy, bone biopsy, debridement of the nonviable soft tissue (wound) and bone, possible gastrocnemius recession. Patient understands that there is a chance that the great toe can migrate upwards as a floppy toe due to loss of soft tissue attachments or can get stiff, and the foot may change shape after surgery. Patient also understands that they could have wound healing complications including delayed healing and infection. We discussed that if the wound does not heal, it is possible that they may need an amputation and could result in further loss of digits, loss of partial foot or loss of leg. We discussed staging to rule out infection and if needed can do a first MPJ arthrodesis in the future. We discussed the risks and benefits in great detail. Other surgical risks include: prolonged pain and swelling, further infection requiring oral or IV antibiotics, delay in healing of soft tissue or bone, nerve or blood vessel damage, CRPS/RSD, DVT, anesthesia complications, and even . All questions answered. Patient verbalized understanding. Consent obtained. Patient will need medical clearance. Pre-op labs: ESR, CRP, Ha1c, CBC, CMP, EKG, CXR, covid. KERMIT run and consistent with history. e-Rx for [place], Zofran and Motrin. Also e-Rx Doxycycline 100mg BID x 2 weeks. Operative findings:: The left dorsal hallux has a dorsal ulcer noted over the first metatarsal head. Predebridement it measured approximately 0.6 and 0.3 x 0.2 cm. There was no drainage or purulence noted. Periwound edema and localized erythema noted. Ulcer excised full-thickness. Metatarsal head intact with early cortical erosion secondary to osteoarthritis. No obvious metatarsal head cysts. No obvious osteomyelitis noted. Base of the proximal phalanx was fragmented. There was some fibrotic and synovitic scar tissue noted to the first metatarsophalangeal joint. The collateral ligaments of the MPJ or torn with
--- NOTE | 2020-07-31 10:08 | HMH.ANESCL ---
[facility] Anesthesia Checklist - Patient Identification Patient Identification: Arm Band - Structural Data Admitted From: Home Planned Operative Procedure/s: excision of left foot fracture, cheilectomy Consent for Planned Operative Procedure(s) Verified: Yes Verified Documents: Surgical Consent, History and Physical - NPO Status Verified Time NPO: 00:00 - Additional verifications Anesthesia Reactions: No Hx Blood Transfusions: No Blood Transfusion Reaction: No - Airway Assessment C-Spine Mobility Assessed: Yes (mp2) TMJ Mobility Assessed: Yes Dentition: Good Dentition - Neurological Assessment Level of Consciousness: Awake, Alert - Anesthesia Plan Anesthesia Risk discussed: Yes Anesthesia Plan: Verified ASA Class: III Anesthesia Type: MAC w/Block (Pt voiced concerns about GA. Detailed discussion including risks/benefits of popliteal/saphenous nerve block and MAC anesthesia.Pt verbalized understanding) [facility] History Medical History: Reports:: Diabetes Mellitus Type 1 Denies:: Anxiety, Cancer, Depression, Diabetes Mellitus Type 2, Hyperlipidemia, Hypertension, Internal Pacemaker, Migraine, MRSA, Seizures *Have you ever received a pneumonia vaccine?: Yes *Have you received a flu vaccine this season?: Yes Other Medical History: Reports: Arthritis. Denies: Blood Transfusion Reaction Anesthesia experience/problems:: nac Other Surgeries: Yes: , Tubal Ligation. No: Pacemaker Amputation: No Fractures: No - *Social History Last grade of school completed: Advanced degree Smoking Status: Never smoker Alcohol Intake: never Substance Use Type: denies use *Occupational Status:: employed Housing: house Household Members: spouse *Travel in the last 8 weeks: None - Psychiatric History Pschychiatric History:: Denies:: Anxiety, Depression Family Hx:: Diabetes, Hypertension, Hyperlipidemia
[2020-07-31 10:37] VITALS: TEMP 43
--- NOTE | 2020-07-31 10:53 | XR_ITS ---
PROCEDURE: XR FOOT LT 2V CLINICAL INDICATION: FX TOE COMPARISON: CR XR FOOT WT BEARING LT 3V from 05/06/2020 CR XR FOOT WT BEARING LT 3V from 05/20/2020 CR XR FOOT WT BEARING LT 3V from 06/06/2020 CR XR FOOT WT BEARING LT 3V from 07/11/2020 FINDINGS: Fluoro time: 13 seconds Single AP view demonstrates methylmethacrylate along the proximal aspect of the proximal phalanx of the great toe Other findings:None. IMPRESSION: Fluoro guidance for foot surgery Dictated by: Lincoln Phillip MD 07/31/2020 15:02 Lincoln Phillip MD in [place] 07/31/2020 15:02
[2020-07-31 11:00] VITALS: BP 106/55; PULSE 72; RESP 16; TEMP 36.9; O2SAT 98
--- NOTE | 2020-07-31 11:00 | XR_ITS ---
PROCEDURE: XR FOOT LT MIN 3V CLINICAL INDICATION: Left foot fx COMPARISON: CR XR FOOT WT BEARING LT 3V from 07/11/2020 FINDINGS: Irregular opacity between the head of the 1st metatarsal and the base of the comminuted fracture of the proximal phalanx great toe in this probably is methylmethacrylate cement. There appears to have been surgical removal of some of fracture fragments at the base of the proximal phalanx. Healing fractures of the heads of the 2nd and 3rd metatarsals are again noted. IMPRESSION: Postsurgical changes of the MP joint great toe as noted Dictated by: Dr. Paul Cristobal MD 07/31/2020 12:55 Dr. Paul Cristobal MD in [place] 07/31/2020 12:55
[2020-07-31 11:12] LABS: POC Glucose,Bedside 179 (70-110)
[2020-07-31 11:15] VITALS: BP 113/56; PULSE 71; RESP 18; O2SAT 99
[2020-07-31 11:30] VITALS: BP 115/61; PULSE 70; RESP 16; O2SAT 96
== END 2020-07-31 11:30 | disposition home or self-care (01) ==
LOC: OR 08:32
PROVIDERS: PCP Internal Medicine Adolescent Medicine; Visit Provider Podiatrist
PROC: (CPT 28288; principal; 2020-07-31 10:00)
DX: S92.412K Displaced fracture of proximal phalanx of left great toe, subsequent encounter for fracture with nonunion (principal); S92.502D Displaced unspecified fracture of left lesser toe(s), subsequent encounter for fracture with routine healing; I10 Essential (primary) hypertension; E78.5 Hyperlipidemia, unspecified; E10.621 Type 1 diabetes mellitus with foot ulcer; E10.42 Type 1 diabetes mellitus with diabetic polyneuropathy; L97.522 Non-pressure chronic ulcer of other part of left foot with fat layer exposed; S92.325D Nondisplaced fracture of second metatarsal bone, left foot, subsequent encounter for fracture with routine healing; S92.335D Nondisplaced fracture of third metatarsal bone, left foot, subsequent encounter for fracture with routine healing; M19.072 Primary osteoarthritis, left ankle and foot; E10.610 Type 1 diabetes mellitus with diabetic neuropathic arthropathy; M65.872 Other synovitis and tenosynovitis, left ankle and foot; Z79.4 Long term (current) use of insulin; Z79.899 Other long term (current) drug therapy; X58.XXXD Exposure to other specified factors, subsequent encounter
CPT/HCPCS: 28288; 28092; 64450; 20704; 73620; 73630; 76000; 82962; 87070; 87205; 96374; C1713; J3370

== ENCOUNTER → 2020-08-15 14:32 | Outpatient (CLI) | payer BC, SELFPAY ==
--- NOTE | 2020-08-15 14:36 | XR_ITS ---
PROCEDURE: XR FOOT WT BEARING LT 3V CLINICAL INDICATION: postop views Follow-up surgery COMPARISON: CR XR FOOT WT BEARING LT 3V from 06/06/2020 CR XR FOOT WT BEARING LT 3V from 07/11/2020 CR XR FOOT LT 2V from 07/31/2020 CR XR FOOT LT MIN 3V from 07/31/2020 FINDINGS: There are healing fractures involving the distal aspect of the 2nd and 3rd metatarsal and the proximal phalanx the 4th toe. The hyperdensity/bone cement or antibiotic material noted at the postsurgical site at the proximal phalanx of the 1st toe is somewhat less apparent revealing the area of osteotomy of the proximal phalanx. There is good alignment. There is mild foreshortening of the 1st digit. IMPRESSION: Postsurgical changes as described above Dictated by: Lincoln Phillip MD 08/15/2020 16:56 Lincoln Phillip MD in [place] 08/15/2020 16:56
== END ==
PROVIDERS: PCP Internal Medicine Adolescent Medicine; Visit Provider Podiatrist
DX: Z98.890 Other specified postprocedural states (principal); M79.672 Pain in left foot
CPT/HCPCS: 73630

== ENCOUNTER → 2020-08-29 12:38 | Outpatient (CLI) | payer BC, SELFPAY ==
--- NOTE | 2020-08-29 12:43 | XR_ITS ---
PROCEDURE: XR FOOT WT BEARING LT 3V CLINICAL INDICATION: post op Follow-up surgery COMPARISON: CR XR FOOT WT BEARING LT 3V from 05/20/2020 CR XR FOOT WT BEARING LT 3V from 07/11/2020 CR XR FOOT LT 2V from 07/31/2020 CR XR FOOT LT MIN 3V from 07/31/2020 CR XR FOOT WT BEARING LT 3V from 08/15/2020 FINDINGS: Postsurgical changes from prior osteotomy at the base of the proximal phalanx the 1st toe. Periarticular ossification versus residual from antibiotic beads is developing at this region. There is mild medial subluxation of the proximal phalanx. Overlying soft tissue swelling is present healing fractures are present involving the heads the 2nd and 3rd metatarsals as well as the proximal aspect of the proximal phalanx the 4th toe. There is good alignment of these fracture fragments. Healing fracture also noted at the base of the proximal phalanx of 5th toe. IMPRESSION: Good alignment healing fractures of the 2nd 3rd 4th and 5th digits. Mild medial displacement of the remaining aspect of the proximal phalanx the great toe. Dictated by: Lincoln Phillip MD 08/29/2020 15:25 Lincoln Phillip MD in [place] 08/29/2020 15:25
== END ==
PROVIDERS: PCP Internal Medicine Adolescent Medicine; Visit Provider Podiatrist
DX: S92.412P Displaced fracture of proximal phalanx of left great toe, subsequent encounter for fracture with malunion (principal); Z98.890 Other specified postprocedural states
CPT/HCPCS: 73630

== ENCOUNTER → 2020-10-19 07:46 | Outpatient (CLI) | payer BC, SELFPAY ==
[2020-10-19 09:08] LABS: Anion Gap 13.5 mEq/L (5-15); Blood Urea Nitrogen 14 mg/dl (7-17); Calcium 10.2 mg/dl (8.4-10.2); Carbon Dioxide 26 mmol/L (22.0-30.0); Chloride 106 mmol/L (98-107); Chol/HDL Ratio 2.8 (1-3.5); Cholesterol 161 mg/dl (140-200); Estimated Glomerular Filt Rate 73 ml/min (>60); GFR (African American) 89 ML/MIN (>60); Glucose 51 mg/dl (74-100); HDL Cholesterol 58 mg/dl (40-60); Potassium 4.5 mmoL/L (3.5-5.1); Sodium 141 mmol/L (136-145); Triglycerides 90 mg/dl (30-150); VLDL Cholesterol 18 mg/dL (0-40)
[2020-10-19 09:19] LABS: Direct LDL Cholesterol 66.67 mg/dL (100-129)
[2020-10-19 10:27] LABS: Hemoglobin A1C 5.2 % (4.0-6.0)
== END ==
PROVIDERS: Visit Provider Internal Medicine Endocrinology, Diabetes & Metabolism
DX: E10.69 Type 1 diabetes mellitus with other specified complication (principal); Z79.4 Long term (current) use of insulin
CPT/HCPCS: 36415; 80048; 80061; 83036; 84443

== ENCOUNTER → 2020-10-23 15:19 | Outpatient (CLI) | payer BC, SELFPAY ==
--- NOTE | 2020-10-23 15:21 | XR_ITS ---
PROCEDURE: XR FOOT WT BEARING LT 3V CLINICAL INDICATION: POSTOP VIEWS Follow-up surgery, pain COMPARISON: CR XR FOOT LT 2V from 07/31/2020 CR XR FOOT LT MIN 3V from 07/31/2020 CR XR FOOT WT BEARING LT 3V from 08/15/2020 CR XR FOOT WT BEARING LT 3V from 08/29/2020 FINDINGS: Bony destruction is now evident at the distal aspect of the 1st metatarsal and the proximal aspect of the proximal phalanx of the great toe. There was previous surgery at the proximal phalanx however, there is now bony destruction with fragmentation of the 1st metatarsal and the proximal phalanx. These findings are consistent with acute osteomyelitis. There is an old fracture of the distal aspect of the 2nd and 3rd metatarsals. There is an old fracture involving the proximal aspect of the proximal phalanx of the fourth toe and the distal aspect of the 4th metatarsal. IMPRESSION: Findings are compatible with osteomyelitis of the great toe involving the distal aspect of the 1st metatarsal and the proximal phalanx Dictated by: Lincoln Phillip MD 10/23/2020 16:09 Lincoln Phillip MD in [place] 10/23/2020 16:09
== END ==
PROVIDERS: PCP Internal Medicine Adolescent Medicine; Visit Provider Podiatrist
DX: Z98.890 Other specified postprocedural states (principal); M14.672 Charcot's joint, left ankle and foot
CPT/HCPCS: 73630

== ENCOUNTER → 2020-11-29 11:08 | Outpatient (CLI) | payer BC, SELFPAY ==
--- NOTE | 2020-11-29 11:09 | XR_ITS ---
PROCEDURE: XR FOOT WT BEARING LT 3V CLINICAL INDICATION: foot pain Follow-up fracture COMPARISON: CR XR FOOT WT BEARING LT 3V from 05/06/2020 CR XR FOOT LT MIN 3V from 07/31/2020 CR XR FOOT WT BEARING LT 3V from 08/15/2020 CR XR FOOT WT BEARING LT 3V from 08/29/2020 CR XR FOOT WT BEARING LT 3V from 10/23/2020 FINDINGS: Increasing destructive changes with bony expansion noted involving the distal aspect of the 1st metatarsal and the proximal aspect of the proximal phalanx consistent with osteomyelitis. The bony destruction at the distal aspect of the 1st metatarsal appears slightly worse medially. There are old fractures of the distal 2nd and 3rd metatarsal and the proximal phalanx of the 4th and 5th toes. IMPRESSION: Bony destruction at the 1st metatarsophalangeal junction consistent with osteomyelitis which appears slightly worse Healing 2nd and 3rd metatarsal fractures and proximal phalangeal fractures of the 4th and 5th toes Dictated by: Lincoln Phillip MD 11/29/2020 13:44 Lincoln Phillip MD in [place] 11/29/2020 13:44
== END ==
PROVIDERS: PCP Internal Medicine Adolescent Medicine; Visit Provider Podiatrist
DX: M14.672 Charcot's joint, left ankle and foot (principal)
CPT/HCPCS: 73630

== ENCOUNTER → 2021-05-08 12:42 | Outpatient (CLI) | payer BC, SELFPAY ==
--- NOTE | 2021-05-08 12:42 | MM_ITS ---
PROCEDURE INFORMATION: Exam: MG Bilateral Screening 3D Mammography Exam date and time: 05/08/2021 12:42 PM Age: 60 years old Clinical indication: Encounter for screening mammogram for malignant neoplasm of breast TECHNIQUE: Imaging protocol: Bilateral screening tomosynthesis and 2D mammography including computer-aided detection (CAD) when performed. COMPARISON: 1. MG MM DIG SCREENING MAMM BI W/CAD 04/30/2020 12:59 PM 2. MG MM DIG SCREENING MAMM BI W/CAD 04/26/2019 3:49 PM FINDINGS: MAMMOGRAPHY: Breast composition: The breast tissue is extremely dense, limiting the sensitivity of mammography. Mass: None. Architectural distortion: None. Calcifications: No suspicious calcifications. Asymmetric density: None. Skin thickening: None. Axillary adenopathy: None. IMPRESSION: No mammographic evidence of malignancy. Annual screening is recommended unless otherwise clinically indicated. ASSESSMENT: BI-RADS Category 1: Negative
== END ==
PROVIDERS: PCP Internal Medicine Adolescent Medicine; Visit Provider Nurse Practitioner Obstetrics & Gynecology
DX: Z12.31 Encounter for screening mammogram for malignant neoplasm of breast (principal)
CPT/HCPCS: 77063; 77067

== ENCOUNTER → 2021-06-09 14:46 | Outpatient (CLI) | payer BC, SELFPAY ==
[2021-06-17 00:07] LABS: QuantiFERON-TB Gold Plus Negative (Negative)
== END ==
PROVIDERS: Visit Provider Dermatology
DX: L40.0 Psoriasis vulgaris (principal); L40.50 Arthropathic psoriasis, unspecified; Z79.899 Other long term (current) drug therapy
CPT/HCPCS: 36415; 86480

== ENCOUNTER → 2021-08-30 07:19 | Outpatient (CLI) | payer BC, SELFPAY ==
[2021-08-30 07:53] LABS: Basophils # 0.1 K/mm3 (0-0.2); Basophils % 1.8 % (0.1-2.0); Eosinophils # 0.1 K/mm3 (0.0-0.4); Eosinophils % 1.4 % (0.1-12.0); Hemoglobin 13.6 g/dL (12.2-16.2); Lymphocytes # 1.7 K/mm3 (0.7-4.5); Mean Corpuscular HGB Conc 31.7 g/dL (31.8-35.4); Mean Corpuscular Hemoglobin 29.5 pg (27.0-31.2); Mean Corpuscular Volume 93.1 fl (81-99); Monocytes # 0.3 K/mm3 (0.1-1.0); Monocytes % 6.3 % (1.7-9.3); Neutrophils % 49.4 % (37.0-80.0); Platelet Count 165 K/mm3 (142-424); Red Blood Count 4.62 M/mm3 (4.20-5.40); Red Cell Distribution Width 14.5 % (11.5-17.5)
[2021-08-30 08:06] LABS: Alanine Aminotransferase 46 U/L (12-78); Albumin/Globulin Ratio 1.6 (1.1-1.8); Alkaline Phosphatase 80 U/L (38-126); Aspartate Amino Transferase 60 U/L (14-36); Bilirubin,Total 0.4 mg/dl (0.2-1.3); Blood Urea Nitrogen 18 mg/dl (7-17); Calcium 9.8 mg/dl (8.4-10.2); Carbon Dioxide 29 mmol/L (22.0-30.0); Chloride 104 mmol/L (98-107); Chol/HDL Ratio 2.5 (1-3.5); Cholesterol 186 mg/dl (140-200); Estimated Glomerular Filt Rate 73 ml/min (>60); GFR (African American) 89 ML/MIN (>60); Globulin 2.5 g/dL (1.3-3.2); HDL Cholesterol 73 mg/dl (40-60); Sodium 139 mmol/L (136-145); Total Protein,Serum 6.5 g/dl (6.3-8.2); Triglycerides 60 mg/dl (30-150); VLDL Cholesterol 12 mg/dL (0-40)
[2021-08-30 08:13] LABS: Hemoglobin A1C 4.9 % (4.0-6.0)
[2021-08-30 08:17] LABS: Direct LDL Cholesterol 94.67 mg/dL (100-129)
[2021-08-30 08:23] LABS: Free T4 (Free Thyroxine) 0.66 ng/dl (0.78-2.19)
[2021-08-30 08:37] LABS: Thyroid Stimulating Hormone 5.56 uIU/mL (0.465-4.68)
[2021-08-30 09:10] LABS: Glucose 47 mg/dl (74-100)
== END ==
PROVIDERS: Internal Medicine; PCP Internal Medicine Adolescent Medicine; Visit Provider Nurse Practitioner Family
DX: Z00.00 Encounter for general adult medical examination without abnormal findings (principal); E10.69 Type 1 diabetes mellitus with other specified complication; Z79.4 Long term (current) use of insulin
CPT/HCPCS: 36415; 80053; 80061; 82043; 82533; 83036; 84439; 84443; 85025

== ENCOUNTER → 2022-05-15 08:11 | Outpatient (CLI) | payer BC, SELFPAY ==
--- NOTE | 2022-05-15 08:36 | MM_ITS ---
PROCEDURE INFORMATION: Exam: MG Bilateral Screening 3D Mammography Exam date and time: 05/15/2022 8:26 AM Age: 61 years old Clinical indication: Screening. No family history of breast cancer. TECHNIQUE: Imaging protocol: Bilateral Screening tomosynthesis and 2D mammography including computer-aided detection (CAD) when performed. COMPARISON: 1. MG MM DIG SCREENING MAMM BI W/CAD 05/08/2021 1:06 PM 2. MG MM DIG SCREENING MAMM BI W/CAD 04/30/2020 12:59 PM 3. MG MM DIG SCREENING MAMM BI W/CAD 04/26/2019 3:49 PM 4. MG SCBI MM Dig screening mamm BI w/CAD 02/22/2018 10:55 AM FINDINGS: MAMMOGRAPHY: Breast composition: The breasts are extremely dense, which lowers the sensitivity of mammography. Mass: None. Architectural distortion: None. Calcifications: No suspicious calcifications. Asymmetric density: None. Skin thickening: None. Axillary adenopathy: None. IMPRESSION: No mammographic evidence of malignancy. Annual screening is recommended unless otherwise clinically indicated. ASSESSMENT: BI-RADS Category 1: Negative
== END ==
PROVIDERS: PCP Internal Medicine Adolescent Medicine; Visit Provider Nurse Practitioner Obstetrics & Gynecology
DX: Z12.31 Encounter for screening mammogram for malignant neoplasm of breast (principal)
CPT/HCPCS: 77063; 77067

== ENCOUNTER → 2022-07-24 07:26 | Outpatient (CLI) | payer BC, SELFPAY ==
[2022-07-24 08:07] LABS: Creatinine,Urine Random 42 mg/dL (Not Estab.); Microalbumin < 6.000 mg/L (0-16.7)
[2022-07-24 09:02] LABS: Anion Gap 8.4 mEq/L (5-15); Blood Urea Nitrogen 20 mg/dl (7-17); Calcium 10.7 mg/dl (8.4-10.2); Carbon Dioxide 34 mmol/L (22.0-30.0); Chloride 105 mmol/L (98-107); Chol/HDL Ratio 2.6 (1-3.5); Cholesterol 206 mg/dl (140-200); Estimated Glomerular Filt Rate 57 ml/min (>60); GFR (African American) 68 ML/MIN (>60); HDL Cholesterol 79 mg/dl (40-60); Potassium 5.4 mmoL/L (3.5-5.1); Sodium 142 mmol/L (136-145); Triglycerides 85 mg/dl (30-150); VLDL Cholesterol 17 mg/dL (0-40)
[2022-07-24 09:13] LABS: Direct LDL Cholesterol 93.45 mg/dL (100-129)
[2022-07-24 09:34] LABS: Thyroid Stimulating Hormone 2.92 uIU/mL (0.465-4.68)
[2022-07-24 09:39] LABS: Glucose 48 mg/dl (74-100)
[2022-07-27 08:18] LABS: QuantiFERON-TB Gold Plus Negative (Negative)
== END ==
PROVIDERS: Dermatology; PCP Internal Medicine Adolescent Medicine; Visit Provider Internal Medicine Endocrinology, Diabetes & Metabolism
DX: E10.649 Type 1 diabetes mellitus with hypoglycemia without coma (principal); L40.0 Psoriasis vulgaris; L40.50 Arthropathic psoriasis, unspecified; Z79.899 Other long term (current) drug therapy
CPT/HCPCS: 36415; 80048; 80061; 82043; 82570; 84443; 86480

== ENCOUNTER → 2022-09-18 07:23 | Outpatient (CLI) | payer BC, SELFPAY ==
[2022-09-18 08:43] LABS: Hemoglobin A1C 5.1 % (4.0-6.0)
[2022-09-18 08:47] LABS: Anion Gap 9.3 mEq/L (5-15); Blood Urea Nitrogen 20 mg/dl (7-17); Calcium 9.8 mg/dl (8.4-10.2); Carbon Dioxide 30 mmol/L (22.0-30.0); Chloride 106 mmol/L (98-107); Estimated Glomerular Filt Rate 73 ml/min (>60); GFR (African American) 89 ML/MIN (>60); Glucose 54 mg/dl (74-100); Potassium 5.3 mmoL/L (3.5-5.1); Sodium 140 mmol/L (136-145)
[2022-09-18 09:00] LABS: Intact Parathyroid Hormone 82.2 pg/mL (7.5-53.5)
[2022-09-18 09:05] LABS: 25-OH Vitamin D, Total 48.4 ng/mL (30-100)
== END ==
PROVIDERS: PCP Internal Medicine Adolescent Medicine; Visit Provider Internal Medicine Endocrinology, Diabetes & Metabolism
DX: E10.649 Type 1 diabetes mellitus with hypoglycemia without coma (principal); Z79.4 Long term (current) use of insulin
CPT/HCPCS: 36415; 80048; 82306; 83036; 83970

== ENCOUNTER → 2023-02-17 08:31 | Outpatient (CLI) | payer BC, SELFPAY ==
[2023-02-17 10:15] LABS: Free T4 (Free Thyroxine) 0.77 ng/dl (0.78-2.19)
== END ==
PROVIDERS: PCP Nurse Practitioner Family; Visit Provider Internal Medicine
DX: E03.8 Other specified hypothyroidism (principal)
CPT/HCPCS: 36415; 84439

== ENCOUNTER 2023-05-05 10:34 | Outpatient (RCR) | payer BC, SELFPAY ==
--- NOTE | 2023-05-05 14:36 | HMH.PTOPWND ---
Rehab Outpt Wound Evaluation Rehab OP Wound Evaluation Start: 05/05/23 14:10 Freq: Status: Active Protocol: Document 05/05/23 14:11 LAVELL (Rec: 05/05/23 14:35 PHOCESAR [id number]) E-signed By Tarik Thakur, PT Subjective/History History History This is the initial PT eval for Celia Domingo, 62 yowf who presents with c/o > bowens wounds x ~ 1 mo after a groubd level fall. I scraped my leg up something awful. SHe reports most wounds have completely healed, but the 2 remaining wounds are healing slower. She reports hx of IDDM and psoriatic arthritis. Subjective Subjective Currently no c/o pain or tenderness to palpation in the L lower leg. Minimal maurisio- wound erythema. New diagnosis of cancer in past 12 No months? Wound Eval Wound Left Lateral Bowens Wound Type Abrasion Is This a Chronic Wound Yes Wound Length (cm) 1.3 Wound Width (cm) 0.7 Wound Depth (cm) 0.1 Wound Bed Appearance [place] Wound Margins Description Well Defined Surrounding Tissue Appearance [place] Drainage Description Serous Drainage Amount Scant Primary Dressing Composite Dressing Change Patient Tolerance Tolerated Well Left Anterior [place] Wound Type Abrasion Is This a Chronic Wound Yes Wound Length (cm) 1.0 Wound Width (cm) 1.0 Wound Depth (cm) 0.1 Wound Bed Appearance [place] Wound Margins Description Well Defined Surrounding Tissue Appearance [place] Edema Degree None Query Text:1+ Trace, Barely Detectable, Rebound 15-30 seconds 2+ Moderate, Slight Indentation, Rebound 10-20 seconds 3+ Deep, Deeper Indentation, Rebound > 30 seconds 4+ Very Deep, Rebound > 60 seconds Drainage Amount None Primary Dressing Composite Dressing Change Patient Tolerance Tolerated Well Wound Problems/Impairments Impairments Problems/Impairmments Wound Care Needs,Subjective C/ O Pain,Impaired Self Care/Self Management Prognosis Rehab Potential Good Clinical Impression Consistent with Diagnosis Yes Short Term Goals Number of Weeks
== END 2023-05-05 10:40 | disposition home or self-care (01) ==
LOC: PT 10:34
PROVIDERS: PCP Nurse Practitioner Family; Visit Provider Nurse Practitioner Family
DX: L03.116 Cellulitis of left lower limb (principal)
CPT/HCPCS: 97162; 97597

== ENCOUNTER → 2023-06-07 07:54 | Outpatient (CLI) | payer BC, SELFPAY ==
--- NOTE | 2023-06-07 07:54 | MM_ITS ---
PROCEDURE INFORMATION: Exam: MG Bilateral Screening 3D Mammography Exam date and time: 06/07/2023 7:54 AM Age: 62 years old Clinical indication: Screening examination TECHNIQUE: Imaging protocol: Bilateral Screening tomosynthesis and 2D mammography including computer-aided detection (CAD) when performed. COMPARISON: 1. MG MM DIG SCREENING MAMM BI W/CAD 05/15/2022 8:26 AM 2. MG MM DIG SCREENING MAMM BI W/CAD 05/08/2021 1:06 PM FINDINGS: MAMMOGRAPHY: Breast composition: The breasts are extremely dense, which lowers the sensitivity of mammography. Mass: None. Architectural distortion: None. Calcifications: No suspicious calcifications. Asymmetric density: None. Skin thickening: None. Axillary adenopathy: None. IMPRESSION: No mammographic evidence of malignancy. Annual screening is recommended unless otherwise clinically indicated. ASSESSMENT: BI-RADS Category 1: Negative
== END ==
PROVIDERS: PCP Nurse Practitioner Family; Visit Provider Nurse Practitioner Obstetrics & Gynecology
DX: Z12.31 Encounter for screening mammogram for malignant neoplasm of breast (principal)
CPT/HCPCS: 77063; 77067

== ENCOUNTER → 2023-07-22 10:30 | Outpatient (CLI) | payer BC, SELFPAY ==
--- NOTE | 2023-07-22 10:45 | XR_ITS ---
FINAL REPORT CLINICAL HISTORY: Right foot Pain possible infection in 5th digit COMPARISON: None FINDINGS: RIGHT FOOT 3 views of the right foot were obtained. There is no acute fracture or dislocation. Visualized joint spaces are normally aligned. There is soft tissue swelling over the lateral aspect of the distal fifth metatarsal. There is no evidence of bony erosion or periosteal reaction. IMPRESSION: Soft tissue swelling without acute bony abnormality. Reviewed, Interpreted and Dictated by Bobby Lorenzo MD Transcribed by Gladis Harvey Authenticated and [facility][1]
[2023-07-22 11:00] LABS: Basophils % 0.7 % (0.1-2.0); Eosinophils # 0.1 K/mm3 (0.0-0.4); Eosinophils % 1.8 % (0.1-12.0); Hematocrit 42.1 % (37.0-47.0); Hemoglobin 13.9 g/dL (12.2-16.2); Lymphocytes # 1.3 K/mm3 (0.7-4.5); Lymphocytes % 36.8 % (10-50); Mean Corpuscular Hemoglobin 29.5 pg (27.0-31.2); Mean Corpuscular Volume 89.5 fl (81-99); Monocytes # 0.2 K/mm3 (0.1-1.0); Monocytes % 5.4 % (1.7-9.3); Neutrophils % 55.3 % (37.0-80.0); Platelet Count 151 K/mm3 (142-424); Red Cell Distribution Width 14.4 % (11.5-17.5); White Blood Count 3.6 K/mm3 (4.8-10.8)
[2023-07-22 11:23] LABS: Hemoglobin A1C 5.3 % (4.0-6.0)
[2023-07-22 11:36] LABS: Erythrocyte Sedimentation Rate 16 mm/hr (0-30)
[2023-07-22 11:55] LABS: Albumin Level 4.1 g/dl (3.5-5.0); Albumin/Globulin Ratio 1.4 (1.1-1.8); Globulin 2.9 g/dL (1.3-3.2)
[2023-07-22 12:22] LABS: C-Reactive Protein < 0.3 mg/L (0-4)
[2023-07-22 16:38] LABS: Alanine Aminotransferase 44 U/L (12-78); Alkaline Phosphatase 73 U/L (38-126); Anion Gap 10.4 mEq/L (5-15); Aspartate Amino Transferase 52 U/L (14-36); Bilirubin,Total 0.3 mg/dl (0.2-1.3); Blood Urea Nitrogen 22 mg/dl (7-17); Calcium 9.4 mg/dl (8.4-10.2); Carbon Dioxide 25 mmol/L (22.0-30.0); Chloride 104 mmol/L (98-107); Estimated Glomerular Filt Rate 64 ml/min (>60); GFR (African American) 77 ML/MIN (>60); Glucose 110 mg/dl (74-100); Potassium 4.4 mmoL/L (3.5-5.1); Sodium 135 mmol/L (136-145)
== END ==
PROVIDERS: PCP Nurse Practitioner Family; Visit Provider Podiatrist
DX: R60.9 Edema, unspecified (principal); M79.671 Pain in right foot
CPT/HCPCS: 36415; 73630; 80053; 83036; 85025; 85651; 86140

== ENCOUNTER → 2023-07-26 07:04 | Outpatient (CLI) | payer BC, SELFPAY ==
--- OUTSIDE RECORDS SUMMARY | 2023-07-26 07:07 | XMS_ITS | Continuity of Care Document ---
Author Name Unknown Organization [facility] Address [address] [address] Phone Care Team Providers Care Fulfillment Mail Clerk Name Role Phone Liz Portillo MD Unavailable Unavailable Allergies, Adverse Reactions, Alerts Substance Reaction Status Criticality No Known Allergies Active No Inform ation Medications Medication Instructions Dosage Effective Dates (start - stop) Status Comments CIMZIA 2X200 MG/ML SYRINGE KIT INJECT 400 MG (2 ML) UNDER THE SKIN EVERY 4 WEEKS 2 EQUALLY DIVIDED INJECTIONS AT 2 INJECTION SITES IN ABDOMEN OR THIGH - Active Cimzia 400 mg/2 mL (200 mg/mL x 2) subcutaneous syringe kit inject 2 milliliter by subcutaneous route every 4 weeks as 2 equally divided injections at 2 injection sites in abdomen or thigh 400 MG - Active failed: nsaids, humira, tremfya. AVOID Enbrel d/t hx of iritis. qtb/hep negative Tresiba FlexTouch U-100 insulin 100 unit/mL (3 mL) subcutaneous pen inject by subcutaneous route as per insulin protocol 0.00 - Active sertraline 100 mg tablet take 1 tablet by oral route every day 100 MG - Active Humalog 100 unit/mL subcutaneous solution
[2023-07-26 08:24] LABS: Chloride 106 mmol/L (98-107); Potassium 4.1 mmoL/L (3.5-5.1); Sodium 139 mmol/L (136-145)
[2023-07-26 08:26] LABS: Alanine Aminotransferase 43 U/L (12-78); Aspartate Amino Transferase 51 U/L (14-36); Blood Urea Nitrogen 32 mg/dl (7-17); Estimated Glomerular Filt Rate 64 ml/min (>60); GFR (African American) 77 ML/MIN (>60)
[2023-07-26 08:27] LABS: Albumin/Globulin Ratio 1.4 (1.1-1.8); Alkaline Phosphatase 84 U/L (38-126); Anion Gap 10.1 mEq/L (5-15); Bilirubin,Total 0.3 mg/dl (0.2-1.3); Calcium 9.7 mg/dl (8.4-10.2); Carbon Dioxide 27 mmol/L (22.0-30.0); Chol/HDL Ratio 2.7 (1-3.5); Cholesterol 199 mg/dl (140-200); Globulin 2.9 g/dL (1.3-3.2); HDL Cholesterol 73 mg/dl (40-60); Total Protein,Serum 6.9 g/dl (6.3-8.2); Triglycerides 75 mg/dl (30-150); VLDL Cholesterol 15 mg/dL (0-40)
[2023-07-26 08:37] LABS: Glucose 37 mg/dl (74-100)
[2023-07-26 08:38] LABS: Direct LDL Cholesterol 106.54 mg/dL (100-129)
[2023-07-26 09:31] LABS: Creatinine,Urine Random 42 mg/dL (Not Estab.)
[2023-07-26 09:35] LABS: Microalbumin < 6.000 mg/L (0-16.7)
== END ==
PROVIDERS: PCP Nurse Practitioner Family; Visit Provider Internal Medicine Endocrinology, Diabetes & Metabolism
DX: E10.39 Type 1 diabetes mellitus with other diabetic ophthalmic complication (principal); Z79.4 Long term (current) use of insulin
CPT/HCPCS: 36415; 80053; 80061; 82043; 82570; 84443

== ENCOUNTER → 2023-08-03 12:47 | Outpatient (CLI) | payer BC, SELFPAY ==
--- NOTE | 2023-08-03 12:52 | US_ITS ---
FINAL REPORT CLINICAL HISTORY: decreased sensation b/l lower extremity. Right pinky toe ulcer x 1 month FINDINGS: COMPLETE ANKLE/BRACHIAL INDICES BILATERAL Complete ankle brachial indices were obtained. The right PALMA is 1.2. The left PALMA is 1.2. IMPRESSION: ABIs are within normal limits bilaterally. Reviewed, Interpreted and Dictated by Bobby Lorenzo MD Transcribed by Odalys Smith Authenticated and [facility]
== END ==
PROVIDERS: PCP Nurse Practitioner Family; Visit Provider Podiatrist
DX: R20.8 Other disturbances of skin sensation (principal); L03.031 Cellulitis of right toe; L97.519 Non-pressure chronic ulcer of other part of right foot with unspecified severity; E11.621 Type 2 diabetes mellitus with foot ulcer; Z79.4 Long term (current) use of insulin
CPT/HCPCS: 93923

== ENCOUNTER 2023-09-03 11:35 | Outpatient (CLI) | payer BC, SELFPAY ==
--- NOTE | 2023-09-03 11:46 | XR_ITS ---
FINAL REPORT CLINICAL HISTORY: .right wrist and hand pain after fall COMPARISON: None FINDINGS: RIGHT WRIST Three views demonstrate a comminuted impacted dorsally angulated and displaced fracture of the distal radial metaphysis. There is intra-articular extension. The dorsal angulation and displacement is best seen on the lateral view. No other fracture identified. The soft tissues are unremarkable. IMPRESSION: Radial fracture as above. Reviewed, Interpreted and Dictated by Bobby Lorenzo MD Transcribed by Gladis Harvey Authenticated and [facility]
--- NOTE | 2023-09-03 11:46 | XR_ITS ---
FINAL REPORT CLINICAL HISTORY: RT HAND PAIN after fall COMPARISON: None FINDINGS: RIGHT HAND Three views demonstrate a comminuted impacted dorsally angulated and displaced fracture of the distal radial metaphysis. There is intra-articular extension. The dorsal angulation and displacement is best seen on the lateral view. No other fracture identified. The soft tissues are unremarkable. IMPRESSION: Radial fracture as above. Reviewed, Interpreted and Dictated by Bobby Lorenzo MD Transcribed by Gladis Harvey Authenticated and [facility]
== END 2023-09-03 23:59 ==
LOC: RAD 11:36
PROVIDERS: PCP Nurse Practitioner Family; Visit Provider Nurse Practitioner Family
DX: M79.641 Pain in right hand (principal)
CPT/HCPCS: 73110; 73130

== ENCOUNTER 2023-09-04 10:03 | Emergency (ER) | payer BC, SELFPAY ==
[2023-09-04 10:05] VITALS: BP 169/78; PULSE 71; RESP 16; TEMP 36.5; O2SAT 100
--- NOTE | 2023-09-04 10:09 | PC.NURSE ---
dr hurt at bedside
--- NOTE | 2023-09-04 10:12 | PC.NURSE ---
dr hurt speaking with dr flor
--- NOTE | 2023-09-04 10:17 | XR_ITS ---
PROCEDURE INFORMATION: Exam: XR Right Elbow Exam date and time: 09/04/2023 10:21 AM Age: 62 years old Clinical indication: Injury or trauma; Fall; Blunt trauma (contusions or hematomas); Elbow; Right TECHNIQUE: Imaging protocol: Radiologic exam of the right elbow. Views: 1 or 2 views. COMPARISON: CR XR HAND RT MIN 3V 09/03/2023 11:48 AM FINDINGS: Bones/joints: Normal. Soft tissues: Normal. IMPRESSION: No acute findings.
--- NOTE | 2023-09-04 10:17 | HMH.EDGENADL ---
Discharge Plan Disposition Patient Disposition: Home, Self-Care Condition: Good Prescriptions Prescriptions: New oxycodone 5 mg tablet 5 mg PO Q6H PRN (Reason: pain) Qty: 10 0RF No Action Cimzia 400 mg/2 mL (200 mg/mL x 2) syringe kit SQ MONTHLY glucagon (human recombinant) 1 mg recon soln 1 mg SQ adalimumab 40 mg/0.4 mL pen injector kit SQ sertraline 100 mg tablet 100 mg PO lisinopril 5 mg tablet 5 mg PO Patient Comments: TAKE 1 TABLET BY MOUTH ONCE DAILY simvastatin 40 mg tablet 40 mg PO Patient Comments: TAKE 1 TABLET BY MOUTH ONCE DAILY insulin lispro 100 UNIT/ML insulin pen 1 unit SQ AC Rx Instructions: 1 unit per 15 carbs Referrals Follow up/Referrals: Dae Cerda DO [Staff Physician] - See instructions (R radius fx) Choco Thomas MD [Primary Care Provider] - See instructions Activity Restrictions/Add. Instructions Additional Instructions/Restrictions: You were evaluated in the ER for right wrist pain. Your fracture has been reduced and splinted. As discussed keep the splint clean and dry, do not apply pressure to it, wear the sling to avoid the splint falling off. As discussed if you develop severe swelling, discoloration of the fingers, lack of sensation in the fingers, or any other concerns with the splint being too tight or the mold breaking, return to the ER for reapplication. Follow-up with Dr. Cerda's office on Wednesday first thing in the morning. Take the prescribed oxycodone if needed for severe pain. Otherwise take Tylenol and ibuprofen, do not exceed the recommended doses on the bottles. Return to the ER with new, worsening, or otherwise concerning symptoms. Clinical Impressions Clinical Impression: Closed right radial fracture Qualifiers: Encounter type: initial encounter Radius location: distal Fracture morphology: other intra-articular Qualified Code(s): S52.571A - Other intraarticular fracture of lower end of right radius, initial encounter for closed fracture Instructions Patient Instructions: DI for Wrist Fracture Discharge ED Provider: Latisha Reza Adult [facility] General Chief complaint: Extremity Injury, Upper Stated complaint: AO 09/04 pain in right wrist swelling Time Seen by Provider: 09/04/23 10:09 Mode of Arrival: Ambulatory Source of Information: Patient Limitations: No Limitations Description of Symptoms (Recalled from ER Triage Doc. by RN): Patient states she was moping the floor Wednesday morning when she fell injuring her right wrist. States she went and saw her PCP who ordered outpatient xrays. They told her that she needed to see ortho and they couldn't get her in. Presented to the ER with swelling and pain in her right wrist and arm. History of Present Illness HPI narrative: This 62-year-old female who is a type I diabetic presents to the ER with concerns of right wrist pain. Patient states she was cleaning her bathroom when she tripped and fell catching herself on the right hand. She had acute pain. She went to her PCP who ordered outpatient x-rays. They called her telling her she needed to see orthopedics but they could not get her in on an outpatient basis. She presented to the ER with pain, swelling, knowing she needs further management. Patient states she only took ibuprofen today for pain. She does have feeling and movement in all of her fingers. Patient is right-hand dominant and understandably tearful on arrival. Related Data Home Medications Medication Instructions Recorded Confirmed insulin lispro 100 unit/mL 1 unit SQ AC Diabetes 07/30/20 08/30/23 subcutaneous pen adalimumab 40 mg/0.4 mL mg SQ 08/08/20 08/30/23 subcutaneous pen kit glucagon (human recombinant) 1 mg 1 mg SQ 08/08/20 08/30/23 solution for injection lisinopril 5 mg tablet 5 mg PO 08/08/20 08/30/23 sertraline 100 mg tablet 100 mg PO 08/08/20 08/30/23 simvastatin 40 mg tablet 40 mg PO 08/08/20 08/30/23 certolizumab pegol 400 mg/2 mL mg SQ MONTHLY 07/22/23 08/30/23 (200 mg/mL x2) subcutaneous syringe kit (Cimzia) Previous Rx's Medication Instructions Recorded oxycodone 5 mg tablet 5 mg PO Q6H PRN pain #10 tabs 09/04/23 Allergies Allergy/AdvReac Type Severity Reaction Status Date / Time No Known Drug Allergies Allergy Verified 08/30/23 13:28 [facility] Disclaimer: The information contained in this section may have been updated after the patient was seen, as this information can be updated by other users. Social History (Reviewed 08/30/23 @ 13:29 by ARIC Salazar Smoking Status: Never smoker alcohol intake: never substance use type: denies use current occupational status: employed Travel in the last 8 weeks: None household members: spouse housing: house current occupational exposures/hazards: No caffeine: Yes ROS Obtained: Yes All systems reviewed & no additional complaints except as documented Constitutional Constitutional: Denies chills, Denies fever(s), Denies headache(s) and Denies weakness Eyes Eyes: Denies change in vision ENT Ears, Nose, Mouth, and Throat: Denies dizziness, Denies headache(s), Denies nasal congestion and Denies sore throat Cardiovascular Cardiovascular: Denies chest pain, Denies dyspnea and Denies leg edema Respiratory Respiratory: Denies cough and Denies dyspnea Gastrointestinal Gastrointestingal: Denies constipation, diarrhea, nausea or vomiting Genitourinary Female Genitourinary: Denies dysuria Musculoskeletal Musculoskeletal: Reports arthralgias, Denies myalgias, Denies numbness and Denies tingling Integumentary/Breasts Skin/Breast: Denies change in pigmentation Neurologic Neurologic: Denies dizziness, Denies headache(s), Denies numbness, Denies tingling and Denies weakness Physical Exam General General appearance: alert and in no apparent distress Head Head exam: atraumatic and normocephalic Eye Eye exam: Present PERRL and EOMI ENT ENT exam: Present mucous membranes moist Neck Neck exam: Present normal inspection and full ROM Chest Chest inspection: Present symmetric chest wall rise Respiratory Respiratory exam: Absent respiratory distress or stridor Cardiovascular Cardiovascular exam: Present regular rate and normal rhythm Abdominal Exam Abdominal exam: Present soft; Absent distention, tenderness, guarding or rebound Extremities Exam Extremities exam: Present tenderness, joint swelling and other (Tenderness, swelling, deformity, pain in the right wrist. Patient is neurovascularly intact distally with 2+ palpable radial pulse and good capillary refill however she is severely swollen. No other injuries on exam); Absent full ROM Neurological Exam Neurological exam: Present alert and oriented X3; Absent motor sensory deficit Psychiatric Psychiatric exam: Present normal affect and normal mood Skin Skin exam: Present warm and dry Medical Decision Making Merlin Inquiry Pt receiving controlled substance: Yes Merlin was queried for this patient: Yes Risks and benefits of using a controlled substance: were discussed with pt by me Vital Signs: 09/04/23 10:05 09/04/23 10:49 Temperature 97.7 F Temperature Source Oral Pulse Rate 72 Pulse Rate [Radial] 71 Respiratory Rate 16 18 Blood Pressure 133/76 Blood Pressure [Left Arm] 169/78 H Blood Pressure Mean 100 Blood Pressure Mean [Left Arm] 108 Blood Pressure Source [Left Arm] Automatic Cuff Blood Pressure Position [Left Arm] Sitting 02 Sat by Pulse Oximetry 100 100 Oxygen Delivery Method Room Air Orders (Tests/Meds): ED MEDICATIONS Discontinued Medications Generic Name Dose Route Start Last Admin Trade Name Shamika PRN Reason Stop Dose Admin Oxycodone HCl 5 mg 09/04/23 10:16 09/04/23 10:22 Oxycodone 5mg Immediate Release Tablet PO 09/04/23 10:17 5 mg ONCE ONE Administration ORDERS Category Date Time Status Elbow XR right 2 views [XR elbow RT 2V] Stat Exams 09/04/23 10:17 Completed Wrist XR right 2 views [XR wrist RT 2V] Stat Exams 09/04/23 12:09 Taken Medical Decision Narrative: This 62-year-old female presents to the ER with concerns of right wrist pain, swelling. On initial evaluation patient has deformed, tender, swollen wrist, neurovascularly intact distally, no other injuries appreciated on exam. Differential diagnosis includes but is not limited to fracture, dislocation, neurovascular compromise, also considered compartment syndrome however patient has soft compartments, no paresthesias, no pain with passive movement, pulses are palpable throughout with brisk capillary refill. I reviewed x-rays which were performed outpatient yesterday. They demonstrate a dorsally displaced, angulated, comminuted unstable fracture of the right radius. I added elbow x-ray to evaluate the proximal portions of the radius and ulna. I discussed this case with Dr. Cerda who recommended fingertrap gravity assisted reduction and sugar-tong splint with outpatient follow-up on Wednesday. I performed hematoma block and fracture reduction with splinting. See procedure note for details. Patient had also received oral oxycodone in the ER. She is appropriate for discharge at this time. She received a sling for continued support. She was given instructions on splint care. I provided a prescription for oxycodone for severe pain management. She has also been referred to Dr. Cerad's office for follow-up. Patient was given instructions on symptomatic management, follow up instructions, and return precautions for the emergency department. Patient indicated understanding and was discharged in stable condition. Procedures Orthopedic Fracture Reduction Fracture #1: Time Out Performed: Yes Side: right Fracture Reduction Location: radius Analgesia: hematoma block (20mL 1% lidocaine wo epinephrine) Technique: traction/counter-traction and finger traps Post Reduction X-rays Demonstrate: acceptable reduction (improved alignment) Post-reduction neuro exam: intact and no change Post-reduction vascular exam: intact and no change Splint Applied: Yes Patient Tolerated Procedure: well Additional Comments: Sugar-tong splint personally applied and adjusted by me Critical Care Critical Care Time Critical Care Time: No
[2023-09-04] MEDS: OXYCODONE 5MG IMMEDIATE RELEASE TABLET 5 MG PO (10:22)
--- NOTE | 2023-09-04 10:25 | PC.NURSE ---
xr at bedside
--- NOTE | 2023-09-04 10:42 | PC.NURSE ---
dr hurt at bedside to update pt and family on poc. answer questions r/t wrist reduction
[2023-09-04 10:49] VITALS: BP 133/76; PULSE 72; RESP 18; O2SAT 100
--- NOTE | 2023-09-04 11:17 | PC.NURSE ---
DR DICK AT BEDSIDE
--- NOTE | 2023-09-04 12:09 | XR_ITS ---
PROCEDURE INFORMATION: Exam: XR Right Wrist Exam date and time: 09/04/2023 12:08 PM Age: 62 years old Clinical indication: Injury or trauma; Fall; Blunt trauma (contusions or hematomas); Wrist; Right; Additional info: Post reduction TECHNIQUE: Imaging protocol: Radiologic exam of the right wrist. Views: 1 or 2 views. COMPARISON: CR XR WRIST RT MIN 3V 09/03/2023 11:48 AM FINDINGS: Bones/joints: There has been interval placement of a plaster cast which obscures fine bony and soft-tissue detail. Again noted is comminuted intra-articular fracture of the distal radius with mildly improved alignment of the bony fragments when compared with the prior examination. Soft tissues: Normal. IMPRESSION: Interval partial reduction and casting of the right radial fracture.
[2023-09-04 12:26] VITALS: BP 148/74; PULSE 78; RESP 18; TEMP 36.5; O2SAT 100
--- NOTE | 2023-09-09 04:29 | PC.NURSE ---
chart accessed for ortho papers
== END 2023-09-04 12:27 | disposition home or self-care (01) ==
PROVIDERS: Emergency Provider Emergency Medicine; PCP Internal Medicine Adolescent Medicine
DX: S52.571A Other intraarticular fracture of lower end of right radius, initial encounter for closed fracture (principal); E10.9 Type 1 diabetes mellitus without complications; W01.0XXA Fall on same level from slipping, tripping and stumbling without subsequent striking against object, initial encounter
CPT/HCPCS: 25605; 73070; 73100; 99284

== ENCOUNTER 2023-09-07 09:13 | Outpatient (CLI) | payer BC, SELFPAY ==
--- NOTE | 2023-09-07 09:25 | ECG_ITS ---
APPROVED REPORT Exam: Resting ECG HR:62 bpm ECG Measurements Heart Rate 62 AXES SC 154 P 57 QRSd 94 QRS -24 QT 391 T 44 QTc 397 Conclusion SINUS RHYTHM LOW QRS VOLTAGE IN PRECORDIAL LEADS [QRS DEFLECTION < 1.0 mV IN CHEST LEADS] Late R wave progression Isolated Q in III ABNORMAL ECG UNCONFIRMED REPORT Electronically signed by : Choco Thomas MD 09/07/2023 16:36:59
--- NOTE | 2023-09-07 09:35 | XR_ITS ---
FINAL REPORT CLINICAL HISTORY: Pre Op, hypertension COMPARISON: None FINDINGS: There is no evidence of effusion or other pleural disease. The mediastinum has a normal appearance. A mild S-shaped scoliosis is present. The cardiac silhouette is unremarkable. IMPRESSION: Unremarkable chest exam. Reviewed, Interpreted and Dictated by Remy Velasco MD Transcribed by Delicia Victoria Authenticated and [facility]
[2023-09-07 09:40] LABS: Basophils % 0.8 % (0.1-2.0); Eosinophils # 0.1 K/mm3 (0.0-0.4); Eosinophils % 1.8 % (0.1-12.0); Hematocrit 35.2 % (37.0-47.0); Hemoglobin 11.7 g/dL (12.2-16.2); Lymphocytes # 0.8 K/mm3 (0.7-4.5); Lymphocytes % 26.2 % (10-50); Mean Corpuscular HGB Conc 33.2 g/dL (31.8-35.4); Mean Corpuscular Hemoglobin 29.2 pg (27.0-31.2); Mean Corpuscular Volume 87.9 fl (81-99); Mean Platelet Volume 8.9 fl (7.4-10.4); Monocytes # 0.2 K/mm3 (0.1-1.0); Monocytes % 6.7 % (1.7-9.3); Neutrophils # 1.9 K/mm3 (1.8-7.8); Neutrophils % 64.5 % (37.0-80.0); Platelet Count 143 K/mm3 (142-424); Red Cell Distribution Width 14.6 % (11.5-17.5)
[2023-09-07 10:25] LABS: Alanine Aminotransferase 40 U/L (12-78); Albumin Level 3.4 g/dl (3.5-5.0); Albumin/Globulin Ratio 1.3 (1.1-1.8); Alkaline Phosphatase 72 U/L (38-126); Anion Gap 7.1 mEq/L (5-15); Aspartate Amino Transferase 49 U/L (14-36); Bilirubin,Total 0.3 mg/dl (0.2-1.3); Blood Urea Nitrogen 13 mg/dl (7-17); Calcium 9.5 mg/dl (8.4-10.2); Carbon Dioxide 31 mmol/L (22.0-30.0); Chloride 102 mmol/L (98-107); Estimated Glomerular Filt Rate 73 ml/min (>60); GFR (African American) 88 ML/MIN (>60); Globulin 2.6 g/dL (1.3-3.2); Glucose 122 mg/dl (74-100); Potassium 5.1 mmoL/L (3.5-5.1); Sodium 135 mmol/L (136-145)
== END 2023-09-07 23:59 ==
LOC: LAB 09:13
PROVIDERS: PCP Internal Medicine Adolescent Medicine; Visit Provider Orthopaedic Surgery
DX: Z01.818 Encounter for other preprocedural examination (principal); S52.514A Nondisplaced fracture of right radial styloid process, initial encounter for closed fracture
CPT/HCPCS: 71046; 80053; 85025; 93005

== ENCOUNTER 2023-09-10 05:58 | Day surgery (SDC) | payer BC, SELFPAY ==
[2023-09-10] VITALS (10 sets, daily range): BP systolic 91–171; BP diastolic 48–89; PULSE 66–81; RESP 12–18; TEMP 36.4–43; O2SAT 92–100
[2023-09-10] MEDS: LACTATED RINGERS 1000ML 1,000 ML 25 ML IV (06:40)
[2023-09-10] MEDS: CEFAZOLIN SODIUM 1 GM in 0.9 % SODIUM CHLORIDE 50 ML IV (07:59)
--- NOTE | 2023-09-10 08:01 | P.PNANES_ITS ---
[facility] Disclaimer: The information contained in this section may have been updated after the patient was seen, as this information can be updated by other users. Medical History History of psoriatic arthritis Surgical History History of section History of eye surgery Family History Other No significant family history Social History Smoking Status: Never smoker alcohol intake: never substance use type: denies use current occupational status: employed Travel in the last 8 weeks: None household members: spouse housing: house current occupational exposures/hazards: No caffeine: Yes [facility] Anesthesia Checklist Patient Identification Patient Identification: Verbal (Name & ) Structural Data Admitted From: Home Planned Operative Procedure/s: orif r wrist Consent for Planned Operative Procedure(s) Verified: Yes NPO Status Verified Time NPO: 00:00 Additional verifications Anesthesia Reactions: No Hx Blood Transfusions: No Blood Transfusion Reaction: No Airway Assessment Mallampati Score:: Class II C-Spine Mobility Assessed: Yes TMJ Mobility Assessed: Yes Dentition: Good Dentition Neurological Assessment Level of Consciousness: Awake, Alert and Appropriate Anesthesia Plan Anesthesia Risk discussed: Yes Anesthesia Plan: Verified ASA Class: II Anesthesia Type: General w/block Preoperative Comments Pre-Operative Comments: supraclav block exp to pt,pt agrees to continue
[2023-09-10 09:04] LABS: POC Glucose,Bedside 111 (70-110)
--- NOTE | 2023-09-10 09:34 | XR_ITS ---
FINAL REPORT CLINICAL HISTORY: ORIF RT WRIST IN OR 1.31 min 2.57 mGy FINDINGS: FLUOROSCOPY LESS THAN 1 HOUR HISTORY: Images during ORIF distal radial fracture FINDINGS: Fluoroscopic guidance was provided for ORIF distal radial fracture. 2 spot films were obtained. 1.31 minutes of fluoroscopy time were used, with 2.57 mGy of radiation. IMPRESSION: As above. Reviewed, Interpreted and Dictated by Remy Velasco MD Transcribed by Delicia Victoria Authenticated and [facility]
[2023-09-10] MEDS: BACITRACIN ZINC OINT 30GM TUBE 28 GM TP (09:39)
--- NOTE | 2023-09-10 10:05 | EXP.ANES.I ---
[facility] Anesthesia Record Part I Anesthesia Record I Intake, IV Amount: 1,800 Hydration: Adequate Estimated blood loss (mL): 0 Urine output (mL): 0 Blood Pressure: 91/48 SaO2: 96 Pulse Rate: 80 Airway Patency: Patent Respiratory Rate: 12 Temperature: 97.5 F Patient is:: Awake and Stable Stable to PACU at:: 10:00
--- NOTE | 2023-09-10 10:08 | P.OP_ITS ---
Date of procedure: 09/10/23 Pre-op Diagnosis:: Right intra-articular severely comminuted distal radius fracture Post-op Diagnosis:: Same Procedure performed:: Open reduction internal fixation right distal radius with volar plating, intra-articular fracture 3+ part Surgeon:: Dae Cerda DO [employer] REPRESENTATIVE:: Cristopher Freeman Anesthesia: GETA and regional Estimated blood loss (mL): 0 Clinical Note:: Implants Synthes distal radius volar plating Operative findings:: Severely comminuted intra-articular distal radius fracture Operative note:: Patient was identified preoperatively. Right arm marked with yes my initials. Underwent a block with anesthesia. Taken the operating room. Placed upon the operating bed. General anesthesia ministered airway secured. Right upper extremity then prepped and draped normal sterile fashion. Once prepped and draped final operative timeout performed to identify proper patient procedure and extremity. Everyone involved the case agreed. There were no counter indications to beginning. She did receive preoperative antibiotics. Marking pen was used to vishnu plan incision on the volar aspect of the wrist. Esmarch was used to exsanguinate the extremity pneumatic tourniquet inflated to 250 mmHg. Skin knife was used to incise the skin careful dissection is taken down over the FCR tendon which was opened and retracted radially throughout the procedure protect the radial artery. Floor of the FCR was opened. Self- retaining retractor placed pronator quadratus split in the L-type fashion off the distal radius and fracture site encountered. Soft tissue removed the incarcerated aspect of the fracture site and there was a large amount of comminution of the distal radius with a large radial styloid fragment and severe comminution of the intra-articular aspect of the ulnar piece. Given the severe comminution K wire was placed across the radial styloid to reduce to the shaft and dental pick freer elevator were used for reduction of the ulnar fragment to place the articular surface together. Again this was held with a K wire. Plate was selected from the Synthes volar distal radius set and placed on the bone. A narrow plate was selected given the anatomy of the bone. The plate was then rotated to capture properly the radial styloid piece cortical screw was placed in the shaft followed by all the distal locking screws on the distal radius. Multiple AP and lateral views were taken to confirm screw placement and safe screw placement. 2 additional locking screws placed in the shaft. Copious irrigation wound performed. Skin deep layers closed with Vicryl stitch 3-0 nylon the skin and sterile dressing with a volar splint was placed. Patient waken anesthesia taken recovery stable condition. Condition: stable Disposition: PACU Complications:: None apparent
[2023-09-10 10:12] LABS: POC Glucose,Bedside 234 (70-110)
[2023-09-10] MEDS: MEPERIDINE 25MG/ML 1ML SYRINGE 25 MG IV ×2 (10:17→10:30)
[2023-09-16 08:40] VITALS: BP 144/54; PULSE 77; RESP 16; TEMP 36.9; O2SAT 94
--- NOTE | 2023-09-16 08:40 | EXP.ANES.II ---
[facility] Anesthesia Record Part II Anesthesia Record Part II Discharge Time: 10:30 Destination: Surgical Day Care (OP Surgery) PACU nurse assessment reviewed?: Yes Patient Condition:: Good Anesthesia Complications:: None Swallowing reflex intact?: Yes Airway Patency: Patent Cyanosis?: No Blood Pressure: 144/54 SaO2: 94 Respiratory Rate: 16 Pulse Rate: 77 Temperature: 98.4 F Mental Status: Alert & Oriented Pain level:: 5 Nausea and/or vomitting:: None Intake, IV Amount: 0 Hydration: Adequate
== END 2023-09-10 11:00 | disposition home or self-care (01) ==
PROVIDERS: PCP Internal Medicine Adolescent Medicine; Visit Provider Orthopaedic Surgery
PROC: (CPT 25609; principal; 2023-09-10 07:30)
DX: S52.571A Other intraarticular fracture of lower end of right radius, initial encounter for closed fracture (principal); E11.9 Type 2 diabetes mellitus without complications; Z79.4 Long term (current) use of insulin; Z79.899 Other long term (current) drug therapy; W01.0XXA Fall on same level from slipping, tripping and stumbling without subsequent striking against object, initial encounter; Y93.E5 Activity, floor mopping and cleaning; Y92.010 Kitchen of single-family (private) house as the place of occurrence of the external cause
CPT/HCPCS: 25609; 73100; 76000; 82962; 96374; C1713; C1776; J2405

== ENCOUNTER 2023-09-16 11:15 | Outpatient (CLI) | payer BC, SELFPAY ==
--- NOTE | 2023-09-16 11:22 | XR_ITS ---
FINAL REPORT CLINICAL HISTORY: ORIF rt wrist, f/u COMPARISON: None FINDINGS: AP, oblique, and lateral views of the right wrist were obtained. The patient is postop ORIF comminuted distal radial fracture. The alignment of the fracture fragments is stable when compared with the intraoperative film of September 10. The soft tissues are normal. IMPRESSION: Post ORIF right wrist, with internal fixation of a comminuted distal radial fracture. The alignment of the fracture fragments is stable when compared with the intraoperative films of September 10. Reviewed, Interpreted and Dictated by Osvaldo Kline III, MD Transcribed by Delicia Victoria Authenticated and [facility]
== END 2023-09-16 23:59 ==
LOC: RAD 11:15
PROVIDERS: PCP Internal Medicine Adolescent Medicine; Visit Provider Orthopaedic Surgery
DX: S52.351D Displaced comminuted fracture of shaft of radius, right arm, subsequent encounter for closed fracture with routine healing (principal); Z98.890 Other specified postprocedural states
CPT/HCPCS: 73110

== ENCOUNTER 2023-10-21 07:06 | Outpatient (CLI) | payer BC, SELFPAY ==
--- NOTE | 2023-10-21 07:09 | XR_ITS ---
FINAL REPORT CLINICAL HISTORY: Rt Wrist Pain COMPARISON: 09/04/2023 FINDINGS: RIGHT WRIST Three views demonstrate interval postoperative changes from distal radius ORIF. There is a screw plate with multiple screws. Hardware appears intact. There is a fracture of the ulnar styloid process. There is mild degenerative change. Soft tissue swelling is noted. IMPRESSION: Postoperative and degenerative changes as above. Reviewed, Interpreted and Dictated by Osvaldo Kline III, MD Transcribed by Gladis Harvey Authenticated and [facility]
== END 2023-10-21 23:59 ==
LOC: RAD 07:07
PROVIDERS: PCP Internal Medicine Adolescent Medicine; Visit Provider Orthopaedic Surgery
DX: S52.571A Other intraarticular fracture of lower end of right radius, initial encounter for closed fracture (principal)
CPT/HCPCS: 73110

== ENCOUNTER 2023-12-01 09:20 | Outpatient (CLI) | payer BC, SELFPAY ==
--- NOTE | 2023-12-01 09:29 | XR_ITS ---
FINAL REPORT CLINICAL HISTORY: Rt Wrist Pain COMPARISON: 10/21/2023 FINDINGS: RIGHT WRIST Three views demonstrate a sideplate and screws securing a healed fracture deformity of the distal radial metaphysis. There is no acute fracture or dislocation. The radiocarpal joint is intact. There is ulnar positive variance. The soft tissues are unremarkable. IMPRESSION: Internal fixation of healed fracture deformity of the distal right radial metaphysis. Reviewed, Interpreted and Dictated by Bobby Lorenzo MD Transcribed by Gladis Harvey Authenticated and [facility]
== END 2023-12-01 23:59 | disposition home or self-care (01) ==
LOC: RAD 09:23
PROVIDERS: PCP Internal Medicine Adolescent Medicine; Visit Provider Orthopaedic Surgery
DX: M25.531 Pain in right wrist; S52.571A Other intraarticular fracture of lower end of right radius, initial encounter for closed fracture
CPT/HCPCS: 73110

== ENCOUNTER 2023-12-06 09:17 | Outpatient (CLI) | payer BC, SELFPAY ==
--- NOTE | 2023-12-06 09:21 | XR_ITS ---
FINAL REPORT CLINICAL HISTORY: POST MENOPAUSAL COMPARISON: None FINDINGS: Using L1-4, the bone mineral density of the spine is 1.001 g/cm2, corresponding to T-score of -0.4 which is within normal limits. Using the left hip, the bone mineral density of the femoral neck is 0.763 g/cm2, corresponding to a T-score of -1.5 which is consistent with osteopenia. Using the right hip, the bone mineral density of the femoral neck is 0.748 g/cm2, corresponding to a T-score of -0.9 which is borderline osteopenic. FRAX 10 year fracture risk is 0.6% for a hip fracture and 8.1% for a major osteoporotic fracture. NOTE: T-score: Standard deviation compared with peak bone mass of young adult mean. *Following the recommendations of the International Society of Bone densitometry, classification of hip BMD is based on the lower of two T-scores; total hip or femoral neck. IMPRESSION: Diminished bone mineral density consistent with osteopenia. Reviewed, Interpreted and Dictated by Remy Velasco MD Transcribed by Gladis Harvey Authenticated and [facility]
== END 2023-12-06 23:59 | disposition home or self-care (01) ==
LOC: RAD 09:17
PROVIDERS: PCP Nurse Practitioner Family; Visit Provider Nurse Practitioner Family
DX: Z78.0 Asymptomatic menopausal state (principal)
CPT/HCPCS: 77080

== ENCOUNTER 2023-12-22 07:07 | Outpatient (CLI) | payer BC, SELFPAY ==
[2023-12-22 07:45] LABS: Basophils % 0.9 % (0.1-2.0); Eosinophils # 0.1 K/mm3 (0.0-0.4); Eosinophils % 1.6 % (0.1-12.0); Hematocrit 39.1 % (37.0-47.0); Hemoglobin 12.1 g/dL (12.2-16.2); Lymphocytes # 1.4 K/mm3 (0.7-4.5); Lymphocytes % 37.6 % (10-50); Mean Corpuscular HGB Conc 31.1 g/dL (31.8-35.4); Mean Corpuscular Hemoglobin 27.9 pg (27.0-31.2); Mean Corpuscular Volume 89.7 fl (81-99); Mean Platelet Volume 8.5 fl (7.4-10.4); Monocytes # 0.2 K/mm3 (0.1-1.0); Monocytes % 6.2 % (1.7-9.3); Neutrophils # 1.9 K/mm3 (1.8-7.8); Neutrophils % 53.7 % (37.0-80.0); Platelet Count 142 K/mm3 (142-424); Red Blood Count 4.35 M/mm3 (4.20-5.40); Red Cell Distribution Width 15.4 % (11.5-17.5); White Blood Count 3.6 K/mm3 (4.8-10.8)
[2023-12-22 08:19] LABS: Alanine Aminotransferase 36 U/L (12-78); Albumin Level 3.7 g/dl (3.5-5.0); Albumin/Globulin Ratio 1.3 (1.1-1.8); Alkaline Phosphatase 75 U/L (38-126); Anion Gap 8.5 mEq/L (5-15); Aspartate Amino Transferase 43 U/L (14-36); Bilirubin,Total 0.3 mg/dl (0.2-1.3); Blood Urea Nitrogen 19 mg/dl (7-17); Calcium 10.3 mg/dl (8.4-10.2); Carbon Dioxide 33 mmol/L (22.0-30.0); Chloride 103 mmol/L (98-107); Estimated Glomerular Filt Rate 73 ml/min (>60); GFR (African American) 88 ML/MIN (>60); Globulin 2.8 g/dL (1.3-3.2); Glucose 113 mg/dl (74-100); Potassium 4.5 mmoL/L (3.5-5.1); Sodium 140 mmol/L (136-145); Total Protein,Serum 6.5 g/dl (6.3-8.2)
[2023-12-22 08:35] LABS: Free T4 (Free Thyroxine) 0.58 ng/dl (0.78-2.19)
[2023-12-22 08:45] LABS: C-Reactive Protein < 0.3 mg/L (0-4)
[2023-12-22 08:50] LABS: Thyroid Stimulating Hormone 8.01 uIU/mL (0.465-4.68)
[2023-12-22 09:04] LABS: Erythrocyte Sedimentation Rate 46 mm/hr (0-30)
== END 2023-12-22 23:59 | disposition home or self-care (01) ==
LOC: LAB 07:08
PROVIDERS: Internal Medicine; PCP Nurse Practitioner Family; Visit Provider Internal Medicine Endocrinology, Diabetes & Metabolism
DX: E03.8 Other specified hypothyroidism (principal); L40.50 Arthropathic psoriasis, unspecified; M15.9 Polyosteoarthritis, unspecified; Z79.899 Other long term (current) drug therapy
CPT/HCPCS: 36415; 80053; 84439; 84443; 85025; 85651; 86140

== ENCOUNTER 2024-04-13 10:47 | Outpatient (CLI) | payer BC, SELFPAY ==
--- NOTE | 2024-04-13 10:51 | XR_ITS ---
FINAL REPORT CLINICAL HISTORY: right wrist pain FINDINGS: RIGHT WRIST Three views demonstrate a chronic fracture of the distal radius with screw plate and multiple screws. There is no acute fracture or dislocation. Visualized joint spaces are normally aligned. Soft tissues are unremarkable. IMPRESSION: Interval healing with bony fusion as above. Reviewed, Interpreted and Dictated by Osvaldo Kline III, MD Transcribed by Fadumo Morse Authenticated and . [facility]
== END 2024-04-13 23:59 | disposition home or self-care (01) ==
LOC: RAD 10:48
PROVIDERS: PCP Nurse Practitioner Family; Visit Provider Orthopaedic Surgery
DX: S62.101A Fracture of unspecified carpal bone, right wrist, initial encounter for closed fracture (principal)
CPT/HCPCS: 73110

== ENCOUNTER 2024-06-26 06:55 | Outpatient (CLI) | payer BC, SELFPAY ==
[2024-06-26 08:13] LABS: Chloride 104 mmol/L (98-107); Potassium 4.3 mmoL/L (3.5-5.1); Sodium 139 mmol/L (136-145)
[2024-06-26 08:15] LABS: Blood Urea Nitrogen 17 mg/dl (7-17)
[2024-06-26 08:16] LABS: Alanine Aminotransferase 32 U/L (12-78); Albumin/Globulin Ratio 1.5 (1.1-1.8); Alkaline Phosphatase 65 U/L (38-126); Anion Gap 9.3 mEq/L (5-15); Aspartate Amino Transferase 42 U/L (14-36); Bilirubin,Total 0.4 mg/dl (0.2-1.3); Calcium 10.3 mg/dl (8.4-10.2); Carbon Dioxide 30 mmol/L (22.0-30.0); Chol/HDL Ratio 2.9 (1-3.5); Cholesterol 246 mg/dl (140-200); Estimated Glomerular Filt Rate 63 ml/min (>60); GFR (African American) 77 ML/MIN (>60); Globulin 2.7 g/dL (1.3-3.2); Glucose 106 mg/dl (74-100); HDL Cholesterol 86 mg/dl (40-60); Total Protein,Serum 6.7 g/dl (6.3-8.2); Triglycerides 111 mg/dl (30-150); VLDL Cholesterol 22 mg/dL (0-40)
[2024-06-26 08:28] LABS: Direct LDL Cholesterol 116.35 mg/dL (100-129)
[2024-06-26 08:33] LABS: Free T4 (Free Thyroxine) 0.78 ng/dl (0.78-2.19)
[2024-06-26 08:50] LABS: Thyroid Stimulating Hormone 7.49 uIU/mL (0.465-4.68)
== END 2024-06-26 23:59 | disposition home or self-care (01) ==
LOC: LAB 06:56
PROVIDERS: PCP Nurse Practitioner Family; Visit Provider Internal Medicine Endocrinology, Diabetes & Metabolism
DX: E03.8 Other specified hypothyroidism (principal); E10.39 Type 1 diabetes mellitus with other diabetic ophthalmic complication
CPT/HCPCS: 36415; 80053; 80061; 84439; 84443

== ENCOUNTER 2024-07-14 09:51 | Outpatient (CLI) | payer BC, SELFPAY ==
--- NOTE | 2024-07-14 09:51 | MM_ITS ---
PROCEDURE INFORMATION: Exam: MG Bilateral Screening 3D Mammography Exam date and time: 07/14/2024 10:41 AM Age: 63 years old Clinical indication: Screening examination. TECHNIQUE: Imaging protocol: Bilateral Screening tomosynthesis and 2D mammography including computer-aided detection (CAD) when performed. COMPARISON: 1. MG MM DIG SCREENING MAMM BI W/CAD 06/07/2023 7:54 AM 2. MG MM DIG SCREENING MAMM BI W/CAD 05/15/2022 8:26 AM FINDINGS: MAMMOGRAPHY: Breast composition: The breasts are extremely dense, which lowers the sensitivity of mammography. Mass: None. Architectural distortion: None. Calcifications: No suspicious calcifications. Asymmetric density: None. Skin thickening: None. Axillary adenopathy: None. IMPRESSION: 1. No mammographic evidence of malignancy. Annual screening is recommended unless otherwise clinically indicated. 2. Due to the extremely dense breast tissue and the limited sensitivity of mammography in dense breasts, supplemental screening with whole breast ultrasound or breast MRI may be considered. ASSESSMENT: BI-RADS Category 1: Negative.
== END 2024-07-14 23:59 | disposition home or self-care (01) ==
LOC: RAD 09:51
PROVIDERS: PCP Nurse Practitioner Family; Visit Provider Nurse Practitioner Obstetrics & Gynecology
DX: Z12.31 Encounter for screening mammogram for malignant neoplasm of breast (principal)
CPT/HCPCS: 77063; 77067

== ENCOUNTER 2024-12-13 07:06 | Outpatient (CLI) | payer BC, SELFPAY ==
[2024-12-13 08:11] LABS: Basophils % 0.3 % (0.1-2.0); Eosinophils % 1.2 % (0.1-12.0); Hematocrit 40.4 % (37.0-47.0); Hemoglobin 12.5 g/dL (12.2-16.2); Immature Granulocytes # 0 10^3uL; Immature Granulocytes % 0 %; Lymphocytes # 1.1 K/mm3 (0.7-4.5); Lymphocytes % 33.6 % (10-50); Mean Corpuscular HGB Conc 30.9 g/dL (31.8-35.4); Mean Corpuscular Hemoglobin 27.9 pg (27.0-31.2); Mean Corpuscular Volume 90.2 fl (81-99); Mean Platelet Volume 10.5 fl (7.4-10.4); Monocytes # 0.2 K/mm3 (0.1-1.0); Monocytes % 6.7 % (1.7-9.3); Neutrophils # 1.9 K/mm3 (1.8-7.8); Neutrophils % 58.2 % (37.0-80.0); Nucleated Red Blood Cells # 0 10^3/uL; Nucleated Red Blood Cells % 0 %; Platelet Count 109 K/mm3 (142-424); Red Blood Count 4.48 M/mm3 (4.20-5.40); White Blood Count 3.3 K/mm3 (4.8-10.8)
[2024-12-13 08:57] LABS: Chol/HDL Ratio 1.8 (1-3.5); Cholesterol 155 mg/dl (140-200); HDL Cholesterol 85 mg/dl (40-60); Triglycerides 95 mg/dl (30-150); VLDL Cholesterol 19 mg/dL (0-40)
[2024-12-13 08:58] LABS: Alanine Aminotransferase 50 U/L (12-78); Albumin Level 4.3 g/dl (3.5-5.0); Albumin/Globulin Ratio 1.8 (1.1-1.8); Alkaline Phosphatase 60 U/L (38-126); Anion Gap 4.3 mEq/L (5-15); Aspartate Amino Transferase 58 U/L (14-36); Bilirubin,Total 0.4 mg/dl (0.2-1.3); Blood Urea Nitrogen 22 mg/dl (7-17); Calcium 10.7 mg/dl (8.4-10.2); Carbon Dioxide 32 mmol/L (22.0-30.0); Chloride 108 mmol/L (98-107); Estimated Glomerular Filt Rate 63 ml/min (>60); GFR (African American) 77 ML/MIN (>60); Globulin 2.4 g/dL (1.3-3.2); Glucose 106 mg/dl (74-100); Potassium 4.3 mmoL/L (3.5-5.1); Sodium 140 mmol/L (136-145); Total Protein,Serum 6.7 g/dl (6.3-8.2)
[2024-12-13 09:08] LABS: Direct LDL Cholesterol 47.74 mg/dL (100-129)
[2024-12-13 09:22] LABS: C-Reactive Protein < 0.3 mg/L (0-4)
[2024-12-13 09:27] LABS: Erythrocyte Sedimentation Rate 26 mm/hr (0-30)
[2024-12-13 14:42] LABS: Free T4 (Free Thyroxine) 1.06 ng/dl (0.78-2.19)
[2024-12-13 14:57] LABS: Thyroid Stimulating Hormone 3.67 uIU/mL (0.465-4.68)
[2024-12-14 06:11] LABS: HBsAg Screen Negative (Negative); HCV Ab Non Reactive (Non Reactive); Hep A Ab, IGM Negative (Negative); Hep B Core Ab, IgM Negative (Negative)
[2024-12-15 21:10] LABS: QuantiFERON-TB Gold Plus Negative (Negative)
== END 2024-12-13 23:59 | disposition home or self-care (01) ==
PROVIDERS: PCP Nurse Practitioner Family; Visit Provider Nurse Practitioner Family
DX: L40.50 Arthropathic psoriasis, unspecified (principal); D84.821 Immunodeficiency due to drugs; R53.83 Other fatigue; Z79.899 Other long term (current) drug therapy
CPT/HCPCS: 36415; 80053; 80061; 80074; 84439; 84443; 85025; 85651; 86140; 86480; 86803

== ENCOUNTER 2025-02-07 06:18 | Day surgery (SDC) | payer BC, SELFPAY ==
[2025-02-07 07:01] VITALS: BP 130/72; PULSE 60; RESP 16; TEMP 36.4; O2SAT 100
[2025-02-07] MEDS: LACTATED RINGERS 1000ML 1,000 ML 25 ML IV (07:07)
[2025-02-07 07:11] LABS: POC Glucose,Bedside 90 (70-110)
--- NOTE | 2025-02-07 07:46 | EXP.HP ---
History of Present Illness *Admission Date: 02/07/25 *Reason for visit:: Positive Cologuard *History of present illness: Mrs. Domingo is a 64-year-old female who is here for screening colonoscopy secondary to a positive Cologuard test. This is her first colonoscopy. The examination is deemed medically necessary for screening colonoscopy. The patient has been seen, interviewed and examined prior to the procedure by both myself and the anesthesia provider. [facility] Disclaimer: The information contained in this section may have been updated after the patient was seen, as this information can be updated by other users. Medical History (Updated 02/07/25 @ 07:52 by Corey Fournier II, MD) Osteoarthritis Diabetes History of psoriatic arthritis Surgical History History of foot surgery History of surgery on wrist History of eye surgery History of section Family History Other No significant family history Social History Smoking Status: Never smoker alcohol intake: never substance use type: denies use current occupational status: employed Travel in the last 8 weeks?: None household members: spouse housing: house current occupational exposures/hazards: No caffeine: Yes Have you lived/traveled outside US in past 30 days?: No Contact w/someone who lives/traveled outside US past 30 days?: No Exposure to someone with infectious disease in past 14 days?: No Do you have a fever (greater than 100.4 F or 38 C)?: No Have you tested positive for COVID-19?: No Exposed to someone with COVID-19 in past 14 days?: No Do you have a sore throat?: No Do you have a cough?: No Do you have any weakness?: No Do you have any diarrhea?: No Are you experiencing any unusual bleeding?: No Do you have any muscle aches/pain?: No Do you have any abdominal pain?: No Are you experiencing loss of taste or smell?: No Other Medical History Have you received the Flu Vaccine for this season: Yes Have you received the Pneumonia Vaccine: Yes Review of Systems Review of Systems Review of systems (narrative): Negative *Cardiovascular Comments: Negative *Gastrointestinal Comments: Negative *Genitourinary Comments: Negative *Musculoskeletal Comments: Negative *Neurologic Comments: Negative Meds Home Medications and Allergies Home Medications ?Medication ?Instructions ?Recorded ?Confirmed ?Type insulin lispro 100 unit/mL 1 unit SQ AC Diabetes 07/30/20 01/31/25 History subcutaneous pen glucagon (human recombinant) 1 mg 1 mg SQ NEEDED PRN emergency 08/08/20 01/31/25 History solution for injection only lisinopril 5 mg tablet 5 mg PO DAILY 08/08/20 01/31/25 History sertraline 100 mg tablet 100 mg PO DAILY 08/08/20 01/31/25 History simvastatin 40 mg tablet 40 mg PO HS 08/08/20 01/31/25 History certolizumab pegol 400 mg/2 mL 400 mg SQ MONTHLY 07/22/23 01/31/25 History (200 mg/mL x2) subcutaneous syringe kit (Cimzia) blood sugar diagnostic (OneTouch #10 ea 07/05/24 01/31/25 History Ultra Test strips) blood-glucose sensor (Dexcom G7 #1 ea 07/05/24 01/31/25 History Sensor device) blood-glucose,utility lineman,cont #1 ea 07/05/24 01/31/25 History (Dexcom G7 Airline Counter Agent) brimonidine 0.2 % eye drops 1 drp Eye-Both ONCE 07/05/24 01/31/25 History calcium 600 mg (as 1 tab PO DAILY 07/05/24 01/31/25 History carbonate)-vitamin D3 20 mcg (800 unit) tablet (Caltrate with Vitamin D3) glucagon 1 mg solution for 1 mg SQ DAILY 07/05/24 01/31/25 History injection (Glucagon Emergency Kit) insulin degludec 100 unit/mL (3 100 unit SQ DAILY 07/05/24 01/31/25 History mL) subcutaneous pen (Tresiba FlexTouch U-100 insulin) ixekizumab 80 mg/mL subcutaneous 80 mg SQ WEEKLY 07/05/24 01/31/25 History auto-injector (Taltz Autoinjector) levothyroxine 25 mcg tablet 25 mcg PO DAILY 07/05/24 01/31/25 History pen needle, diabetic 31 gauge x #1,200 ea 07/05/24 01/31/25 History 3/16 (BD Ultra-Fine Mini Pen Needle) sodium,potassium,mag sulfates 17.5 See Rx Instructions PO .COMPLEX 01/22/25 01/31/25 Rx gram-3.13 gram-1.6 gram oral soln #354 mL (Suprep Bowel Prep Kit) New Prescriptions to Start Prescriptions: Allergies Allergy/AdvReac Type Severity Reaction Status Date / Time No Known Drug Allergies Allergy Unknown Verified 01/31/25 14:06 allergy reaction Exam Data for Last 24 hours Vital signs and Labs for Last 24 Hours: Temp Pulse Resp BP Pulse Ox O2 Del Method 97.6 F 60 16 130/72 100 Room Air 02/07/25 07:01 02/07/25 07:01 02/07/25 07:01 02/07/25 07:01 02/07/25 07:01 02/07/25 07:01 Laboratory Results - last 24 hr 02/07/25 07:04: POC Glucose 90 *Routine HEENT Exam Head: Present normocephalic Eye: Present EOMI and PERRL ENT: Present mucous membranes moist *Routine Neck Exam Neck: Present supple *Routine Respiratory Exam Respiratory: Present CTA bilaterally *Routine Cardiovascular Exam Cardiovascular: Present RRR *Routine Abdominal Exam Abdominal: Present soft and normoactive bowel sounds; Absent tenderness *Routine Rectal Exam Rectal:: deferred *Routine Genitalia Exam Genitalia:: deferred *Routine Extremities Exam Extremities: Absent cyanosis, clubbing or edema *Routine Skin Exam Skin: Present warm; Absent rash *Routine Neurological Exam Neurological: Present alert and oriented X3 Assessment and Plan *Assessment and plan (1) Positive colorectal cancer screening using Cologuard test: Status: Acute Category: Medical Code(s): R19.5 - Other fecal abnormalities Plan A/P: 1. Positive Cologuard is the preprocedural diagnosis. The patient will be anesthetized/sedated using MAC sedation. The patient has been seen and examined. Cardiac and lung assessment prior to the examination is stable. Proceed with planned screening colonoscopy.
--- NOTE | 2025-02-07 07:51 | EXP.ANES.CKL ---
[facility] Disclaimer: The information contained in this section may have been updated after the patient was seen, as this information can be updated by other users. Medical History Osteoarthritis Diabetes History of psoriatic arthritis Surgical History History of foot surgery History of surgery on wrist History of eye surgery History of section Family History Other No significant family history Social History Smoking Status: Never smoker alcohol intake: never substance use type: denies use current occupational status: employed Travel in the last 8 weeks?: None household members: spouse housing: house current occupational exposures/hazards: No caffeine: Yes Have you lived/traveled outside US in past 30 days?: No Contact w/someone who lives/traveled outside US past 30 days?: No Exposure to someone with infectious disease in past 14 days?: No Do you have a fever (greater than 100.4 F or 38 C)?: No Have you tested positive for COVID-19?: No Exposed to someone with COVID-19 in past 14 days?: No Do you have a sore throat?: No Do you have a cough?: No Do you have any weakness?: No Do you have any diarrhea?: No Are you experiencing any unusual bleeding?: No Do you have any muscle aches/pain?: No Do you have any abdominal pain?: No Are you experiencing loss of taste or smell?: No [facility] Anesthesia Checklist Patient Identification Patient Identification: Arm Band and Verbal (Name & ) Structural Data Admitted From: Home Planned Operative Procedure/s: colonscopy Consent for Planned Operative Procedure(s) Verified: Yes Verified Documents: Surgical Consent and History and Physical NPO Status Verified Time NPO: 00:00 Additional verifications Anesthesia Reactions: No Hx Blood Transfusions: No Blood Transfusion Reaction: No Airway Assessment Mallampati Score:: Class II Dentition: Good Dentition Neurological Assessment Level of Consciousness: Awake, Alert and Appropriate Anesthesia Plan Anesthesia Risk discussed: Yes Anesthesia Plan: Verified ASA Class: II Anesthesia Type: MAC
--- NOTE | 2025-02-07 07:52 | HMH.PROCNOTE ---
[facility] Procedure Note Date: 02/07/25 Time: 08:32 Procedure Note:: Colonoscopy Procedure Report: Colonoscopy with cold snare polypectomy, snare cautery, submucosal epinephrine injection and Endo Clip placement Endoscopist: Corey Fournier II, MD Referring physician: PAMELA Saba Date of Procedure: February 07, 2025 Equipment: Olympus 190 variable stiffness pediatric colonoscope Sedation: MAC sedation Indication: Mrs. Domingo is a 64-year-old female who is here for screening colonoscopy secondary to a positive Cologuard test. The patient has never had a colonoscopy. She reports no abdominal pain, weight loss, change in her bowel habits or rectal bleeding. She reports no family history of colon cancer. Procedure: Prior to the procedure, a history and physical exam was performed, and patient's medications and allergies were reviewed. The risks, benefits and alternatives of the sedation and procedure were discussed with the patient. All questions were answered and informed consent was obtained. The patient was brought to the procedure room. Patient identification and proposed procedure were verified by the physician and the nurse. The patient was placed in a left lateral decubitus position and the scope was passed under direct vision. Throughout the procedure, the patient's blood pressure, pulse, and oxygen saturations were monitored continuously. The colonoscopy was accomplished without difficulty. The patient tolerated the procedure well. Findings: On digital rectal examination there was normal rectal tone. There were no external hemorrhoids. The colonoscope was introduced through the anal canal to the rectum and advanced to the cecum. The ileocecal valve and appendiceal orifice were identified. The scope was advanced a short distance into the ileum which appeared grossly normal. The scope was then withdrawn into the colon. There were 3 diminutive polyps (cecum x 1 (6 mm) and descending x 2 (4 and 5 mm)). These were removed via cold snare polypectomy. There was a larger 24 mm polyp in the sigmoid colon at 20 cm from the anal verge. This was removed via snare cautery. There was some brisk venous bleeding from the polypectomy site and 1-10,000 epinephrine was injected into the polypectomy site directed at the vascular heme. This did provide some hemostasis. There was some minor residual polyp that was completely resected via cold snare polypectomy. After complete resection, a single Endo Clip was placed over the polypectomy site and there was complete hemostasis. There was melanosis coli identified throughout the colon. There were scattered diverticuli throughout the descending and sigmoid colon (LEFT colon). The rectum itself was normal. Upon retroflexion within the rectum there were grade 1-2 internal hemorrhoids. The preparation was excellent throughout with Jones Preparation Score of 9. The cecal time was 19 minutes. Impression: 1. Large 24 mm sigmoid polyp (20 cm from anal verge) 2. Diminutive colonic polyps x 3 3. Melanosis coli 4. Left-sided diverticulosis 5. Grade 1-2 internal hemorrhoids Plan: I will follow-up the polyp histology and will recommend sigmoidoscopy in 3 to 6 months to ensure that the advanced adenomatous sigmoid polyp has no residual. I would recommend full surveillance colonoscopy in 3 years. I will discuss the findings with the patient and family.
[2025-02-07] MEDS: EPINEPHrine 0.1 MG/ML 10ML SYRINGE (CRASH CART) 1 MG (08:31)
[2025-02-07 08:38] VITALS: BP 107/51; PULSE 84; RESP 18; TEMP 36.1; O2SAT 100
[2025-02-07 08:48] VITALS: BP 95/45; PULSE 78; RESP 18; O2SAT 100
[2025-02-07 08:58] VITALS: BP 115/57; PULSE 77; RESP 16; O2SAT 100
[2025-02-07 09:08] VITALS: BP 124/58; PULSE 78; RESP 18; O2SAT 100
[2025-02-07 09:34] VITALS: BP 128/62; PULSE 73; RESP 18; TEMP 36.1; O2SAT 100
== END 2025-02-07 09:34 | disposition home or self-care (01) ==
PROVIDERS: PCP Nurse Practitioner Family; Visit Provider Internal Medicine Gastroenterology
PROC: 0DJD8ZZ Inspection of Lower Intestinal Tract, Via Natural or Artificial Opening Endoscopic (ICD-10-PCS; CPT 45378; principal; 2025-02-07 08:00)
DX: Z12.11 Encounter for screening for malignant neoplasm of colon (principal); R19.5 Other fecal abnormalities; D12.4 Benign neoplasm of descending colon; D12.5 Benign neoplasm of sigmoid colon; K63.89 Other specified diseases of intestine; K57.30 Diverticulosis of large intestine without perforation or abscess without bleeding; K64.1 Second degree hemorrhoids; E11.9 Type 2 diabetes mellitus without complications; Z79.899 Other long term (current) drug therapy; Z79.4 Long term (current) use of insulin; Z79.890 Hormone replacement therapy
CPT/HCPCS: 45381; 45385; 82962; J0171; J1596; J2003; J2704; J3010; J7120

== ENCOUNTER 2025-05-21 06:01 | Day surgery (SDC) | payer BC, SELFPAY ==
--- NOTE | 2025-05-16 08:04 | EXP.HP ---
History of Present Illness *Admission Date: 05/21/25 *History of present illness: Mrs. Domingo is a 64-year-old female who is here for screening/surveillance sigmoidoscopy secondary to a large advanced sigmoid adenomatous polyp (24 mm tubulovillous adenoma) removed in early February 2025. This is to ensure no residual. The examination is deemed medically necessary for screening/surveillance sigmoidoscopy. The patient has been seen, interviewed and examined prior to the procedure by both myself and the anesthesia provider. [facility] Disclaimer: The information contained in this section may have been updated after the patient was seen, as this information can be updated by other users. Medical History Osteoarthritis Diabetes History of psoriatic arthritis Surgical History History of foot surgery History of surgery on wrist History of eye surgery History of section Family History Other No significant family history Social History (Updated 05/21/25 @ 06:30 by Ocatvia Maki RN) Smoking Status: Never smoker alcohol intake: never substance use type: denies use current occupational status: employed Travel in the last 8 weeks?: None household members: spouse housing: house current occupational exposures/hazards: No caffeine: Yes Have you lived/traveled outside US in past 30 days?: No Contact w/someone who lives/traveled outside US past 30 days?: No Exposure to someone with infectious disease in past 14 days?: No Do you have a fever (greater than 100.4 F or 38 C)?: No Have you tested positive for COVID-19?: No Exposed to someone with COVID-19 in past 14 days?: No Do you have a sore throat?: No Do you have a cough?: No Do you have any weakness?: No Do you have any diarrhea?: No Are you experiencing any unusual bleeding?: No Do you have any muscle aches/pain?: No Do you have any abdominal pain?: No Are you experiencing loss of taste or smell?: No Other Medical History Have you received the Flu Vaccine for this season: Yes Have you received the Pneumonia Vaccine: Yes Review of Systems Review of Systems Review of systems (narrative): Negative *Cardiovascular Comments: Negative *Gastrointestinal Comments: Negative *Genitourinary Comments: Negative *Musculoskeletal Comments: Negative *Neurologic Comments: Negative Meds Home Medications and Allergies Home Medications ?Medication ?Instructions ?Recorded ?Confirmed ?Type insulin lispro 100 unit/mL 1 unit SQ AC Diabetes 07/30/20 05/21/25 History subcutaneous pen glucagon (human recombinant) 1 mg 1 mg SQ NEEDED PRN emergency 08/08/20 05/21/25 History solution for injection only lisinopril 5 mg tablet 5 mg PO DAILY 08/08/20 05/21/25 History sertraline 100 mg tablet 100 mg PO DAILY 08/08/20 05/21/25 History simvastatin 40 mg tablet 40 mg PO HS 08/08/20 05/21/25 History certolizumab pegol 400 mg/2 mL 400 mg SQ MONTHLY 07/22/23 05/21/25 History (200 mg/mL x2) subcutaneous syringe kit (Cimzia) blood sugar diagnostic (OneTouch #10 ea 07/05/24 05/21/25 History Ultra Test strips) blood-glucose sensor (Dexcom G7 #1 ea 07/05/24 05/21/25 History Sensor device) blood-glucose,turpentine distiller,cont #1 ea 07/05/24 05/21/25 History (Dexcom G7 Instructor Painting) brimonidine 0.2 % eye drops 1 drp Eye-Both ONCE 07/05/24 05/21/25 History calcium 600 mg (as 1 tab PO DAILY 07/05/24 05/21/25 History carbonate)-vitamin D3 20 mcg (800 unit) tablet (Caltrate with Vitamin D3) glucagon 1 mg solution for 1 mg SQ DAILY 07/05/24 05/21/25 History injection (Glucagon Emergency Kit) insulin degludec 100 unit/mL (3 100 unit SQ DAILY 07/05/24 05/21/25 History mL) subcutaneous pen (Tresiba FlexTouch U-100 insulin) ixekizumab 80 mg/mL subcutaneous 80 mg SQ WEEKLY 07/05/24 05/21/25 History auto-injector (Taltz Autoinjector) levothyroxine 25 mcg tablet 25 mcg PO DAILY 07/05/24 05/21/25 History pen needle, diabetic 31 gauge x #1,200 ea 07/05/24 05/21/25 History 3/16 (BD Ultra-Fine Mini Pen Needle) sodium,potassium,mag sulfates 17.5 See Rx Instructions PO .COMPLEX 05/09/25 05/21/25 Rx gram-3.13 gram-1.6 gram oral soln #354 mL (Suprep Bowel Prep Kit) aspirin 81 mg capsule 81 mg PO DAILY 05/15/25 05/21/25 History New Prescriptions to Start Prescriptions: Allergies Allergy/AdvReac Type Severity Reaction Status Date / Time No Known Drug Allergies Allergy Unknown Verified 05/21/25 06:30 allergy reaction Exam Data for Last 24 hours I & O for Last 24 hours: Intake & Output 05/13/25 05/14/25 05/15/25 05/16/25 23:59 23:59 23:59 23:59 Weight 120 lb *Routine HEENT Exam Head: Present normocephalic Eye: Present EOMI and PERRL ENT: Present mucous membranes moist *Routine Neck Exam Neck: Present supple *Routine Respiratory Exam Respiratory: Present CTA bilaterally *Routine Cardiovascular Exam Cardiovascular: Present RRR *Routine Abdominal Exam Abdominal: Present soft and normoactive bowel sounds; Absent tenderness *Routine Rectal Exam Rectal:: deferred *Routine Genitalia Exam Genitalia:: deferred *Routine Extremities Exam Extremities: Absent cyanosis, clubbing or edema *Routine Skin Exam Skin: Present warm; Absent rash *Routine Neurological Exam Neurological: Present alert and oriented X3 Assessment and Plan *Assessment and plan (1) Tubulovillous adenoma of colon: Status: Acute Category: Medical Code(s): D12.6 - Benign neoplasm of colon, unspecified Plan A/P: 1. Tubulovillous adenoma of sigmoid colon is the preprocedural diagnosis. The patient will be anesthetized/sedated using MAC sedation. The patient has been seen and examined. Cardiac and lung assessment prior to the examination is stable. Proceed with planned screening/surveillance sigmoidoscopy.
[2025-05-21 06:24] VITALS: BP 138/63; PULSE 61; RESP 16; TEMP 36.4; O2SAT 100
[2025-05-21] MEDS: LACTATED RINGERS 1000ML 1,000 ML 50 ML IV (06:33)
--- NOTE | 2025-05-21 06:51 | P.PNANES_ITS ---
[facility] Disclaimer: The information contained in this section may have been updated after the patient was seen, as this information can be updated by other users. Medical History Osteoarthritis Diabetes History of psoriatic arthritis Surgical History History of foot surgery History of surgery on wrist History of eye surgery History of section Family History Other No significant family history Social History (Updated 05/21/25 @ 06:30 by Octavia Maki RN) Smoking Status: Never smoker alcohol intake: never substance use type: denies use current occupational status: employed Travel in the last 8 weeks?: None household members: spouse housing: house current occupational exposures/hazards: No caffeine: Yes Have you lived/traveled outside US in past 30 days?: No Contact w/someone who lives/traveled outside US past 30 days?: No Exposure to someone with infectious disease in past 14 days?: No Do you have a fever (greater than 100.4 F or 38 C)?: No Have you tested positive for COVID-19?: No Exposed to someone with COVID-19 in past 14 days?: No Do you have a sore throat?: No Do you have a cough?: No Do you have any weakness?: No Do you have any diarrhea?: No Are you experiencing any unusual bleeding?: No Do you have any muscle aches/pain?: No Do you have any abdominal pain?: No Are you experiencing loss of taste or smell?: No [facility] Anesthesia Checklist Patient Identification Patient Identification: Arm Band and Family Structural Data Admitted From: Home Planned Operative Procedure/s: Flex sigmoidoscopy Consent for Planned Operative Procedure(s) Verified: Yes Verified Documents: Surgical Consent and History and Physical NPO Status Verified Time NPO: 00:00 Additional verifications Patient : No Anesthesia Reactions: No Hx Blood Transfusions: No Blood Transfusion Reaction: No Cephalosporin Allergy: No Previous Colonoscopy: Yes Airway Assessment Mallampati Score:: Class II C-Spine Mobility Assessed: Yes TMJ Mobility Assessed: Yes Dentition: Good Dentition Neurological Assessment Level of Consciousness: Awake, Alert, Appropriate and Follows Commands Hx Seizures: No Numbness or tingling in extremities: No Anesthesia Plan Anesthesia Risk discussed: Yes ASA Class: II Anesthesia Type: MAC Preoperative Comments Pre-Operative Comments: IDDM 78.
--- NOTE | 2025-05-21 07:00 | HMH.PROCNOTE ---
[facility] Procedure Note Date: 05/21/25 Time: 07:39 Procedure Note:: Flexible Sigmoidoscopy Procedure Report: Sigmoidoscopy Endoscopist: Corey Fournier II, MD Referring physician: PAMELA Saba Date of Procedure: May 21, 2025 Equipment: Olympus 180 variable stiffness pediatric colonoscope Sedation: MAC sedation Indication: Mrs. Domingo is a 64-year-old female who is here for screening/surveillance sigmoidoscopy secondary to a large advanced sigmoid adenomatous polyp (24 mm tubulovillous adenoma) removed in early February 2025. At that time, she had a positive Cologuard test. The patient reports no abdominal pain, weight loss, change in her bowel habits or rectal bleeding. She reports no family history of colon cancer. Sigmoidoscopy is performed to ensure no residual. The examination is deemed medically necessary for screening/surveillance sigmoidoscopy. Procedure: Prior to the procedure, a history and physical exam was performed, and patient's medications and allergies were reviewed. The risks, benefits and alternatives of the sedation and procedure were discussed with the patient. All questions were answered and informed consent was obtained. The patient was brought to the procedure room. Patient identification and proposed procedure were verified by the physician and the nurse. The patient was placed in a left lateral decubitus position and the scope was passed under direct vision. Throughout the procedure, the patient's blood pressure, pulse, and oxygen saturations were monitored continuously. The colonoscopy was accomplished without difficulty. The patient tolerated the procedure well. Findings: On digital rectal examination, there was normal rectal tone, there were no external hemorrhoids. The scope was then inserted through the anal canal to the rectum and advanced to 50 cm. Upon withdrawal, there was evidence of melanosis coli and left-sided diverticulosis. The sigmoid colon was inspected carefully and there was no residual sigmoid polyp. The distal descending, sigmoid and rectum were otherwise normal. Upon retroflexion within the rectum there were grade 1-2 internal hemorrhoids. Impression: 1. No residual sigmoid polyp 2. Melanosis coli 3. Left-sided diverticulosis 4. Grade 1-2 internal hemorrhoids Plan: I will recommend repeat screening/surveillance colonoscopy again in 3 years.
[2025-05-21 07:41] VITALS: BP 105/53; PULSE 51; RESP 16; TEMP 36.3; O2SAT 99
[2025-05-21 07:51] VITALS: BP 92/53; PULSE 57; RESP 17; TEMP 36.3; O2SAT 99
[2025-05-21 08:01] VITALS: BP 105/61; PULSE 50; RESP 17; TEMP 36.3; O2SAT 100
[2025-05-21 08:11] VITALS: BP 115/65; PULSE 51; RESP 18; TEMP 36.3; O2SAT 100
[2025-05-25 12:18] LABS: POC Glucose,Bedside 78 gm/dL (70-110)
== END 2025-05-21 08:18 | disposition home or self-care (01) ==
PROVIDERS: PCP Nurse Practitioner Family; Visit Provider Internal Medicine Gastroenterology
PROC: 0DJD8ZZ Inspection of Lower Intestinal Tract, Via Natural or Artificial Opening Endoscopic (ICD-10-PCS; CPT 45330; principal; 2025-05-21 07:30)
DX: Z09 Encounter for follow-up examination after completed treatment for conditions other than malignant neoplasm (principal); Z86.0101 Personal history of adenomatous and serrated colon polyps; K63.89 Other specified diseases of intestine; K57.30 Diverticulosis of large intestine without perforation or abscess without bleeding; K64.1 Second degree hemorrhoids; E11.9 Type 2 diabetes mellitus without complications; L40.50 Arthropathic psoriasis, unspecified; M19.90 Unspecified osteoarthritis, unspecified site; Z79.620 Long term (current) use of immunosuppressive biologic; Z79.890 Hormone replacement therapy; Z79.4 Long term (current) use of insulin; Z79.82 Long term (current) use of aspirin; Z79.899 Other long term (current) drug therapy
CPT/HCPCS: 45330; 82962; J2003; J2704; J7120

== ENCOUNTER 2025-07-13 07:11 | Outpatient (CLI) | payer BC, SELFPAY ==
--- OUTSIDE RECORDS SUMMARY | 2025-07-13 07:13 | XMS_ITS | Encounter Summary ---
Author Organization [facility] Address [address] [place] [id number] Care Team Providers Care Nuclear Licensing Engineer Name Role Phone Choco Thomas MD Primary Care Provider + [phone] Reason for Visit * Reason Onset Date Comments Med Refill 04/18/2025 Encounter Details Date Type Department Care Team (Late st Contact Info) Description 04/18/2025 Refill [facility] [address] [phone] Riley Diop DO [address] [id number] Social History Tobacco Use Types Packs/Day Years Used Date Smoking Tobacco: Never Smokeless Tobacco: Never Alcohol Use Standard Drinks/Week Comments Not Currently 0 (1 standard drink = 0.6 oz pur e alcohol) Comments Unknown Sex and Gender Information Value Date Recorded Sex Assigned at Not on file Legal Sex Female 11:58 AM EST Gender Identity Not on file Sexual Orientation Not on file documented as of this encounter Plan of Treatment Upcoming Encounters Date Type Department Care Team (Late st Contact Info) Description 10/18/2025 8:30 AM EDT Office Visit [facility] [address] [phone] Riley Diop DO [address] [phone] documented as of this encounter Visit Diagnoses Not on filedocumented in this encounter Care Teams Nuclear Licensing Engineer Relationship Specialty Start Date End Date Choco Thomas MD [address] [place] [facility] [address] [place] [id number] PCP - General Adolescent Medicine 09/19/18 documented as of this encounter
--- OUTSIDE RECORDS SUMMARY | 2025-07-13 07:13 | XMS_ITS | Encounter Summary ---
[facility] Address [address] [place] [address] Care Team Providers Care Rn Cardiac Name Role Phone Choco Thomas MD Primary Care Provider + [phone] Encounter Details Date Type Department Care Team (Late Contact Info) Description 12/18/2024 Results Follow-Up [facility] RHEUMATOLOGY [address] [address] Lanre Stark, VENU [address] [phone] Social History Tobacco Use Types Packs/Day Years [...] Description 10/18/2025 8:30 AM EDT Office Visit [facility] RHEUMATOLOGY [address] [address] Riley Diop DO [address] [phone] documented as of this encounter Visit Diagnoses Not on filedocumented in this encounter Care Teams Rn Cardiac Relationship Specialty Start Date End Date Choco Thomas MD [address] [facility] [address] [place] [address] PCP - General Adolescent Medicine 09/19/18 documented as of this encounter
--- OUTSIDE RECORDS SUMMARY | 2025-07-13 07:13 | XMS_ITS | Encounter Summary ---
Author Organization [facility] Address [address] [place] [address] Care Team Providers Care Computerized Table Cutter Name Role Phone Choco Thomas MD Primary Care Provider + [phone] Yola Samayoa RN Unavailable [phone] Reason for Visit * Reason Comments Med Refill Encounter Details Date Type Department Care Team (Late st Contact Info) Description 06/24/2023 [facility] [address] [place] [address] Rosy Casper MD [address] [address] Type 1 diabetes mellitus with hypoglycemia and without coma (CMS/HCC) Social History Tobacco Use Types Packs/Day Years Used Date Smoking Tobacco: Never Smokeless Tobacco: Never Alcohol Use Standard Drinks/Week Comments No 0 (1 standard drink = 0.6 oz pure alcohol) Alcoholic Drinks/day: Never Drank Alcohol PHQ-2 Answer Date Recorded Patient Health Questionnaire-2 Score 0 01/12/2023 PHQ-2A Answer Date Recorded Patient Health Questionnaire-2 Score 0 01/12/2023 Comments Unknown Sex and Gender Information Value Date Recorded Sex Assigned at Not on file Legal Sex Female 8:39 PM EDT Gender Identity Not on file Sexual Orientation Not on file documented as of this encounter Miscellaneous Notes * Telephone Encounter - Jesus Mike, PharmD - 06/24/2023 10:28 AM EST Refill request does not meet protocol. Sending to clinic for review. Additional info: Previously refused, please review documented in this encounter Plan of Treatment Upcoming Encounters Date Type Department Care Team (Late st Contact Info) Description 10/16/2025 9:00 AM EDT Office Visit [facility] Endocrinology [address] [place] [phone] (3), Giuseppe Suarez Fellow documented as of this encounter Visit Diagnoses Diagnosis Type 1 diabetes mellitus with hypoglycemia and without coma documented in this encounter Additional Health Concerns Assessment Noted Time A fall risk assessment has been complete d for the patient 06/15/2023 10:41 AM EST A Body Mass Index follow-up plan has been documented for the patient 06/22/2023 8:23 AM EST documented as of this encounter Care Teams Computerized Table Cutter Relationship Specialty Start Date End Date Choco Thomas MD [address] [place] [address] PCP - General 08/26/21 Yola Samayoa RN [address] [place] [address] Visual Merchandising Associate Internal Medicine 07/12/23 04/17/24 documented as of this encounter
--- OUTSIDE RECORDS SUMMARY | 2025-07-13 07:13 | XMS_ITS | Clinical Summary ---
Author Organization [facility] Address [address] [place] [place] [address] Care Team Providers Care Bow Making Machine Operator Name Role Phone Choco Thomas MD Primary Care Provider + [phone] Allergies No known active allergies Medications lisinopril 5 MG tabletIndications: Hypertension, unspecified type Take 1 tablet (5 mg total) by mouth 1 (one) time each day. PATIENT NEEDS TO SCHEDULE AN APPOINTMENT 90 tablet 07/11/20 21 Active Tremfya 100 MG/ML solution pen-injector 11/12/19 22 Active sertraline (Zoloft) 100 MG tablet Take 1 tablet (100 mg) by mouth in the morning. 09/23/19 22 Active fluocinonide (Lidex) 0.05 % external solution 09/15/19 23 Active erythromycin (Romycin) 5 MG/GM ophthalmic ointment APPLY 1/4 INCH STRIP IN OPERATIVE EYE TWICE A DAY 09/09/19 23 Active Continuous Blood Gluc Transmit (Dexcom G6 transmitter) miscIndications:Ty pe 1 diabetes mellitus with hypoglycemia and without coma Use as instructed 1 each 1 03/08/20 23 Active Continuous Blood Gluc Income Tax Expert (Dexcom G7 Income Tax Expert) deviceIndications: Type 1 diabetes mellitus with hypoglycemia and without coma USE ONCE DAILY 1 each 08/06/20 23 Active brimonidine (AlphaGAN P) 0.2 % ophthalmic solution Administer 1 drop into both eyes in the morning and 1 drop before bedtime. 10/25/19 24 Active glucose blood (Adyliticauch Ultra) test stripIndications:T ype 1 diabetes mellitus with other specified complication USE 1 STRIP TO CHECK GLUCOSE 4 TIMES DAILY 100 each 2 05/18/20 24 Active pen needle, diabetic (B-D UF III MINI PEN NEEDLES) 31G X 5 MM misc USE 1 PEN NEEDLE 4 TIMES DAILY 100 each 2 05/22/20 24 Active insulin degludec (Tresiba FlexTouch) 100 UNIT/ML injection penIndications:Typ e 1 diabetes mellitus with other specified complication Inject 5 units once daily titrate up if necessary MDD 10 DISPOSE OF PEN AFTER 30 DAYS OF USE 15 mL 1 07/04/20 24 Active Caltrate 600+D3 600-20 MG-MCG tablet Take 1 tablet by mouth in the morning and 1 tablet before bedtime. 06/06/20 24 Active Taltz 80 MG/ML solution auto-injector 07/20/20 24 Active neomycin-polymyxin -dexamethamethason e (Polydex) 3.5-42252-8.1 ointment ophthalmic ointment 07/21/20 24 Active simvastatin (Zocor) 40 MG tablet Take 1 tablet by mouth nightly. 11/12/19 25 Active Insulin Lispro Reagan KwikPen 100 UNIT/ML SC injection pen INJECT BEFORE EACH MEAL, 1 UNIT FOR EVERY 30 GRAMS CARBOHYDRATE, PLUS 1:70 CORRECTION FOR HIGH BLOOD SUGAR, MAX DAILY DOSE 30 UNITS, Normal 15 mL 2 02/21/20 25 Active Continuous Glucose Sensor (Dexcom G7 Sensor) miscIndications:Ty pe 1 diabetes mellitus with other ophthalmic complication CHANGE 1 SENSOR EVERY 10 DAYS 9 each 05/08/20 25 Active Glucagon, rDNA, (Glucagon Emergency) 1 MG kitIndications:Typ e 1 diabetes mellitus with hypoglycemia and without coma Use as directed in the event of severe hypoglycemia 1 kit 05/25/20 25 Active levothyroxine (Synthroid, Levoxyl) 50 MCG tabletIndications: Subclinical hypothyroidism Take 1 tablet by mouth daily. 90 tablet 3 07/04/20 25 026 Active rosuvastatin (Crestor) 20 MG tabletIndications: Hyperlipidemia, unspecified hyperlipidemia type Take 1 tablet by mouth daily. 90 tablet 3 07/04/20 25 Active levothyroxine (Synthroid, Levoxyl) 50 MCG tabletIndications: Subclinical hypothyroidism Take 1 tablet (50 mcg) by mouth 1 (one) time each day. 90 tablet 3 07/04/20 24 025 Discontin ued(Reord er) rosuvastatin (Crestor) 20 MG tabletIndications: Hyperlipidemia, unspecified hyperlipidemia type Take 1 tablet (20 mg) by mouth 1 (one) time each day. 90 tablet 3 07/04/20 24 025 Discontin ued(Reord er) Active Problems Problem Noted Date Diagnosed Date Hyperlipidemia 01/14/2022 Psoriatic arthritis 08/26/2021 Other neutropenia 10/17/2018 Subclinical hypothyroidism 03/30/2018 Diabetic hypoglycemia 05/09/2014 Type 1 diabetes mellitus with other specified co mplication 03/08/2013 Encounters Date Type Department Care Team Description 07/12/2025 Refill [facility] Endocrinology [address] [place] [address] Mariza Anderson MBBS 07/04/2025 Refill [facility] Endocrinology [address] [place] [phone] Giuseppe Suarez MD Subclinical hypothyroidism; Hyperlipidemia, unspecified hyperlipidemia type 07/04/2025 Refill [place] [facility] Endocrinology [address] [place] [address] Ivan Palacios DO Hyperlipidemia, unspecified hyperlipidemia type 05/25/2025 Refill [facility] [facility] Endocrinology [address] [place] [address] Giuseppe Suarez MD Type 1 diabetes mellitus with hypoglycemia and without coma 05/07/2025 Refill [place] [facility] Endocrinology [address] [place] [address] Giuseppe Suarez MD 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 ([facility]) from Last 3 Months Immunizations Immunization Administration Dates Next Due Hep A, Adult 12/03/2018 Influenza, Split (incl. ptao fied surface antigen) 05/09/2020 Influenza, injectable, quadrivalent 04/23/2018,1 Influenza, injectable, quadr ivalent, preservative free 05/16/2021,05/10/2020,05/11/2017 Influenza, recombinant, quad rivalent, injectable, preservative free 05/29/2022 Moderna COVID-19 Vaccine (Re d Cap) 12+ years 01/23/2022,04/19/2021,10/19/2020,2020 Tdap 10/26/2017 Family History Medical History Relation Name Comments Hypertension Father Kimmie Purdy Diabetes Mother Kimmie Purdy Hypertension Mother Kimmie Purdy Relation Name Status Comments Father Kimmie Purdy Mother Kimmie Purdy Social History Tobacco Use Types Packs/Day Years Used Date Smoking Tobacco: Never Smokeless Tobacco: Never Tobacco Cessation:Counseling Given: Not Answered Alcohol Use Standard Drinks/Week Comments No 0 [...] on file Sexual Orientation Not on file Last Filed Vital Signs Vital Sign Reading Time Taken Comments Blood Pressure 122/74 02/20/2025 8:00 AM EDT Pulse 59 02/20/2025 8:00 AM EDT Temperature 36.8 C (98.2 F) 11/02/2018 8:20 AM EDT Respiratory Rate - - Oxygen Saturation - - Inhaled Oxygen Concentration - - Weight 53.6 kg (118 lb 2.7 oz) 02/20/2025 8:00 A M EDT Height 165.1 cm (5' 5 ) 02/20/2025 8:00 AM EDT Body Mass Index 19.66 02/20/2025 8:00 AM EDT Plan of Treatment Upcoming Encounters Date Type Department Care Team (Late st Contact Info) Description 10/16/2025 9:00 AM EDT Office Visit [facility] Endocrinology [facility] [place] [address] (3), Giuseppe Suarez Fellow Health Maintenance Due Date Last Done Comments [facility]-HIV Screening 1961 [facility]-Hepatitis C Screening 1961 [facility]-Infant/Child/Adol SDOH Screenings 1961 Diabetes: Dental Exam 10/14/1971 [facility]- SDOH Screenings 10/14/1979 [facility]-Adult SDOH Screenings 10/14/1979 [facility]-Pap Smear 1982 [facility]-Cervical Cancer Screening 10/14/1991 [facility]-HPV/Cotest 10/14/1991 CT Colonography 2006 Colonoscopy 2006 FIT-DNA 2006 FIT 2006 FOBT 2006 Sigmoidoscopy 2006 [facility]-Colorectal Cancer Screening 2006 [facility]-Breast Cancer Screening 10/14/2011 [facility]-Depression Screening 01/13/2024 01/12/2023 [id number] Vaccine ( season) 2025 05/19/2024, 05/08/2023, 01/23/2022, Additional history exists [facility]-Influenza Vaccine (#1) 04/09/202505/19, 04/29/2023, 05/29/2022, Additional history exists [facility]-Diabetes: Hemoglobin A1C 08/20/2025, 10/17/2024, 07/04/2024, Additional history exists [facility]-DTaP,Tdap,and Td Vaccines (2 - Td or Tdap) 10/27/2027 10/26/2017 [facility]-Hepatitis A Vaccines Aged Out 12/03/2018 No longer eligible based on patient's age to complete this topic [facility]-Zoster Vaccines Completed 04/29/2023, [facility]-Pneumococcal Vaccine: 50+ Years Completed 05/08/2023 [facility]-RSV Vaccine: 60+ Years or Completed 05/19/2024 HPV Vaccines Aged Out No longer eligi ble based on patient's age to complete this topic [facility]-HIB Vaccines Aged Out No longer e ligible based on patient's age to complete this topic [facility]-IPV Vaccines Aged Out No longer e ligible based on patient's age to complete this topic [facility]-Rotavirus Vaccines Aged Out No lo nger eligible based on patient's age to complete this topic Procedures Procedure Name Priority Date/Time Associated Diagnosis Comments POCT GLYCOSYLATED HEMOGLOBIN (HGB A1C) Routine 02/20/2025 8:08 AM EDT 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) from Last 3 Months or Most Recently Relevant to Health Maintenance Results * POCT glycosylated hemoglobin (Hb A1C) (02/20/2025 8:08 AM EDT) POCT Hemoglobin A1C 4.9 <5.7% Non-Diabet ic % [facility] Kit Lot Number [id number] [facility] Kit Expiration Date 12/06/26 [facility] Blood Venous blood specimen / Unknown 02/20/2025 8:08 AM EDT Giuseppe Suarez MD POINT OF CARE TEST ENTER/EDIT ORDERABLES Edited Result - Final [facility] [address] [place] [address] from Last 3 Months or Most Recently Relevant to Health Maintenance Insurance [facility] [place] [place] [id number] ANTH Care Teams Bow Making Machine Operator Relationship Specialty Start Date End Date Choco Thomas MD [address] [place] [address] PCP - General 08/26/21
--- OUTSIDE RECORDS SUMMARY | 2025-07-13 07:14 | XMS_ITS | Encounter Summary ---
[facility] [address] [place] [address] Care Team Providers Care Lead Embedded Software Engineer Name Role Phone Choco Thomas MD Primary Care Provider + [phone] Encounter Details Date Type Department Care Team (Late st Contact Info) Description 06/06/2025 Telephone [facility] RHEUM[facility]OLOG[facility] [address] [place] [address] Jesus Willis, PharmD [address] [place] [address] Social History Tobacco Use Types Packs/Day Years [...] Miscellaneous Notes * Telephone Encounter - Jesus Willis, PharmD - 06/06/2025 12:24 PM EDT PA request has been approved and pharmacy notified (Filling pharmacy will be notified by phone, fax, or submitted prescription) Authorized Medication: Alo Name of Insurance Approving PA: [facility] PA Number: [id number] PA Effective Dates: 05/07/25-06/06/26 Dispensing Pharmacy: [facility] * Telephone Encounter - Jesus Willis PharmD - 06/06/2025 9:11 AM EDT Faxed completed formsto plan. * Telephone Encounter - Jesus Willis PharmD - 06/06/2025 8:48 AM EDT ----- Message from Yoselin Wang sent at 06/06/2025 8:38 AM EDT ----- ALO documented in this encounter Plan of Treatment Upcoming Encounters Date Type Department Care Team (Late st Contact Info) Description 10/18/2025 8:30 AM EDT Office Visit [facility]OLOG[facility] [address] [phone] Riley Diop DO 330 [facility] [address] [place] [address] documented as of this encounter Visit Diagnoses Not on filedocumented in this encounter Care Teams Lead Embedded Software Engineer Relationship Specialty Start Date End Date Choco Thomas MD [address] [facility] [address] [facility] [address] [place] [address] PCP - General Adolescent Medicine 09/19/18 documented as of this encounter
--- OUTSIDE RECORDS SUMMARY | 2025-07-13 07:14 | XMS_ITS | Clinical Summary ---
Author Organization [facility] Address [address] [place] [address] Care Team Providers Care Professor Of History Name Role Phone Choco Thomas MD Primary Care Provider + [phone] Allergies No known active allergies Medications lisinopril (PRINIVIL,ZESTR IL) 5 MG tablet Take 1 tablet by mouth Daily. Active Insulin Lispro (humaLOG) 100 UNIT/ML injection Inject under the skin into the appropriate area as directed 3 (Three) Times a Day Before Meals. inject by subcutaneous route per prescriber's instructions. Insulin dosing requires individualizatio n. Active sertraline (ZOLOFT) 100 MG tablet Take 1 tablet by mouth Daily. Active insulin degludec (Tresiba FlexTouch) 100 UNIT/ML solution pen-injector injection Inject under the skin into the appropriate area as directed. inject by subcutaneous route as per insulin protocol Active rosuvastatin (CRESTOR) 20 MG tablet Take 1 tablet by mouth Daily. Active levothyroxine (SYNTHROID, LEVOTHROID) 50 MCG tablet Take 1 tablet by mouth Daily. Active brimonidine (ALPHAGAN) 0.2 % ophthalmic solution instill 1 drop into each eye twice daily 5 Active Calcium Carb-Cholecalci ferol (Caltrate 600+D3) 600-20 MG-MCG tablet Take 1 tablet by mouth. 4 Active Continuous Glucose Bar Machine Operator Production (Dexcom G7 Bar Machine Operator Production) device Daily. use as directed 4 Active Continuous Glucose Sensor (Dexcom G7 Sensor) misc CHANGE 1 SENSOR EVERY 10 DAYS 5 Active simvastatin (ZOCOR) 40 MG tablet Take 1 tablet by mouth nightly. 5 Active Insulin Lispro Reagan KwikPen 100 UNIT/ML solution pen-injector INJECT BEFORE EACH MEAL, 1 UNIT FOR EVERY 30 GRAMS CARBOHYDRATE, PLUS 1:70 CORRECTION FOR HIGH BLOOD SUGAR, MAX DAILY DOSE 30 UNITS, Normal 5 Active Ixekizumab (Taltz) 80 MG/ML solution auto-injector Inject 80 mg under the skin into the appropriate area as directed Every 28 (Twenty-Eight) Days. 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 Hold if the patient develops infection. 2. Avoid live vaccines while on this medication. 3. No recent serious infections 4. No injection site reactions. 5. Also hold this medication perioperatively if the patient is going to have a surgical procedure Orders: CBC Auto Differential Comprehensive Metabolic Panel C-reactive Protein Sedimentation Rate Assessment & Plan (10/18/2024 10:07 AM EDT): *Taltz for PSA Hold for illness/infection No injection site issues No serious recent infections Medication should be held perioperatively No live vaccines on this medication Fatigue 07/05/2024 Assessment & Plan (10/12/2024 1:38 PM EST): Check QTB and hepatitis panel today Psoriatic arthritis 05/30/2024 Assessment & Plan (04/20/2025 9:09 AM EDT): * History of ocular inflammation * Medications/treatments/interventions tried include: She saw Dermatology (Dr. Haywood), Clobex, Calcipotriene, ketoconazole, Desonide, ibuprofen, Humira, Tremfya, Cimzia, Tylenol, Due to elevated LFTs she has avoided drugs with potential for liver toxicity (MTX, sulfasalazine, leflunomide, etc), Taltz 1. Prior Cimzia did not work very well for her skin or arthritis. 2. She started on Taltz 12/2023. This has been helpful for her. 3. Due to elevated LFTs she has avoided drugs with potential for liver toxicity (MTX, sulfasalazine, leflunomide, etc) 4. She has tried/failed Humira 5. She has tried/failed Tremfya 6. Check labs today 7. Follow up in 6 months 8. We gave her a handout on psoriatic arthritis to review. Orders: CBC Auto Differential Comprehensive Metabolic Panel C-reactive Protein Sedimentation Rate Assessment & Plan (10/18/2024 10:17 AM EDT): * History of ocular inflammation * Medications/treatments/interventions tried include: She saw Dermatology (Dr. Haywood), Clobex, Calcipotriene, ketoconazole, Desonide, ibuprofen, Humira, Tremfya, Cimzia, Tylenol, Due to elevated LFTs she has avoided drugs with potential for liver toxicity (MTX, sulfasalazine, leflunomide, etc), Taltz 1. Prior Cimzia did not work very well for her skin or arthritis. 2. She started on Taltz 12/2023. This has been helpful for her. 3. Due to elevated LFTs she has avoided drugs with potential for liver toxicity (MTX, sulfasalazine, leflunomide, etc) 4. She has tried/failed Humira 5. She has tried/failed Tremfya 6. Check labs today 7. Follow up in 3-4 months Osteoarthritis 05/30/2024 Assessment & Plan (10/12/2024 1:37 PM EST): 1. She can take Tylenol PRN as directed 2. She has tried oral NSAIDS like Ibuprofen PRN Hyperlipidemia 01/14/2022 Other neutropenia 10/17/2018 Subclinical hypothyroidism 03/30/2018 Type 1 diabetes mellitus with other specified co mplication 03/08/2013 Encounters Date Type Department Care Team Description 06/06/2025 Telephone [facility] RHEUMATOLOGY [address] [place] [phone] Jesus Willis, Maria Eugenia 04/20/2025 8:30 AM EDT Office Visit [facility] RHEUMATOLOGY [address] [phone] Riley Diop DO Psoriatic arthritis (Primary Dx); Immunodeficiency due to treatment with immunosuppressive medication 04/20/2025 Travel 04/18/2025 Refill [facility] RHEUMATOLOGY [address] [phone] Riley Diop DO from Last 3 Months Immunizations Immunization Administration Dates Next Due Influenza, Unspecified 05/09/2020 Family History Medical History Relation Name Comments Diabetes Mother Relation Name Status Comments Mother Social History Tobacco Use Types Packs/Day Years Used Date Smoking Tobacco: Never Smokeless Tobacco: Never Tobacco Cessation:Counseling Given: Not Answered Alcohol Use Standard Drinks/Week Comments Not Currently 0 (1 standard drink = 0.6 oz pur e alcohol) Comments Unknown Sex and Gender Information Value Date Recorded Sex Assigned at Not on file Legal Sex Female 11:58 AM EST Gender Identity Not on file Sexual Orientation Not on file Last Filed Vital Signs Vital Sign Reading Time Taken Comments Blood Pressure 126/84 04/20/2025 8:39 AM EDT Pulse 56 04/20/2025 8:39 AM EDT Temperature 36.3 C (97.3 F) 04/20/2025 8:39 AM EDT Respiratory Rate - - Oxygen Saturation - - Inhaled Oxygen Concentration - - Weight 50.7 kg (111 lb 11.2 oz) 04/20/2025 8:39 AM EDT Height 165.1 cm (5' 5 ) 04/20/2025 8:39 AM EDT Body Mass Index 18.59 04/20/2025 8:39 AM EDT Plan of Treatment Upcoming Encounters Date Type Department Care Team (Late st Contact Info) Description 10/18/2025 8:30 AM EDT Office Visit [facility] RHEUMATOLOGY [address] [address] Riley Diop DO [address] [address] Health Maintenance Due Date Last Done Comments Annual Gynecologic Pelvic an d Breast Exam 1961 LIPID PANEL 1961 DIABETIC EYE EXAM 10/14/1971 DIABETIC FOOT EXAM 10/14/1971 URINE MICROALBUMIN-CREATININ E RATIO (uACR) 10/14/1971 PAP SMEAR 1982 MAMMOGRAM 2001 COLOGUARD 2006 COLON CANCER SCREENING 5 YEA R SIGMOIDOSCOPY 2006 COLONOSCOPY 2006 [address] CANCER SCREENING 2006 CT COLONOGRAPHY 2006 FECAL OCCULT BLOOD TEST 2006 FIT Testing (1 year) 2006 ANNUAL PHYSICAL 10/17/2018 HEPATITIS C SCREENING 10/17/2018 INFLUENZA VACCINE 03/09/2025 05/19/2024, , 04/29/2023, Additional history exists HEMOGLOBIN A1C 08/23/2025 02/20/2025, 02/06, 10/17/2024, Additional history exists TDAP/TD VACCINES (2 - Td or Tdap) 10/27/2027 018 Pneumococcal Vaccine 50+ Completed 05/08/2023 ZOSTER VACCINE Completed 04/09/2024, 04/10, 02/23/2023 Insurance [place] [id number] [facility] PPO Member Subscriber Plan / Payer (Ef fective 2017-Present) Name:SORAYA PURDY Relation to Subscriber:Spouse Name:SORAYA PURDY Date of :1962 (Home) Address: [address] [place] [address] [place] [id number] Payer ID:[id number] (NAIC) Type:Not on file Address: [facility] [address] [place] [phone] Care Teams Professor Of History Relationship Specialty Start Date End Date Choco Thomas MD [address] [facility] [address] [place] [address] PCP - General Adolescent Medicine 09/19/18
--- OUTSIDE RECORDS SUMMARY | 2025-07-13 07:14 | XMS_ITS | Encounter Summary ---
Author Organization [facility] Address [address] [place] [address] Care Team Providers Care Air Filler Name Role Phone Choco Thomas MD Primary Care Provider + [phone] Reason for Visit * Reason Onset Date Comments Med Refill 05/25/2025 Encounter Details Date Type Department Care Team (Late st Contact Info) Description 05/25/2025 Refill [facility] Endocrinology [address] [place] [address] Giuseppe Suarez MD [address] [address] Type 1 diabetes mellitus with hypoglycemia and without coma Social History Tobacco Use Types Packs/Day Years [...] encounter Miscellaneous Notes * Telephone Encounter - Ra Rodriguez, PharmD - 05/25/2025 1:02 PM EDT Refill request does not meet protocol. Sending to clinic for review. Additional info: Medication not on protocol. documented in this encounter Plan of Treatment Upcoming Encounters Date Type Department Care Team (Late st Contact Info) Description 10/16/2025 9:00 AM EDT Office Visit [facility] Endocrinology [address] [place] [phone] (3), Giuseppe Suarez Fellow documented as of this encounter Visit Diagnoses Diagnosis Type 1 diabetes mellitus with hypoglycemia and without coma documented in this encounter Additional Health Concerns Assessment Noted Time A fall risk assessment has been complete d for the patient 06/15/2023 10:41 AM EST A Body Mass Index follow-up plan has been documented for the patient 03/06/2025 8:48 AM EDT documented as of this encounter Care Teams Air Filler Relationship Specialty Start Date End Date Choco Thomas MD [address] [place] [address] PCP - General 08/26/21 documented as of this encounter
--- OUTSIDE RECORDS SUMMARY | 2025-07-13 07:14 | XMS_ITS | Encounter Summary ---
Author Organization [facility] Address [address] [place] [address] Care Team Providers Care Laboratory Administrative Director Name Role Phone Choco Thomas MD Primary Care Provider + [phone] Reason for Visit * Reason Comments Med Refill Encounter Details Date Type Department Care Team (Late Contact Info) Description 07/12/2025 Refill [facility] Endocrinology [address] [place] [address] Mariza Anderson MBBS [address] [place] [address] Social History Tobacco Use Types Packs/Day Years [...] Encounters Date Type Department Care Team (Late Contact Info) Description 10/16/2025 9:00 AM EDT [facility] [place] [address] (3), Giuseppe Suarez Fellow documented as of this encounter Visit Diagnoses Not on filedocumented in this encounter Additional Health Concerns Assessment Noted Time A fall risk assessment has been complete d for the patient 06/15/2023 10:41 AM EST A Body Mass Index follow-up plan has been documented for the patient 03/06/2025 8:48 AM EDT documented as of this encounter Care Teams Laboratory Administrative Director Relationship Specialty Start Date End Date Choco Thomas MD [address] [place] [address] PCP - General 08/26/21 documented as of this encounter
--- OUTSIDE RECORDS SUMMARY | 2025-07-13 07:14 | XMS_ITS | Encounter Summary ---
Author Organization [facility] Address [address] [place] [address] Care Team Providers Care Hydroelectric Mechanic Name Role Phone Choco Thomas MD Primary Care Provider + [phone] Yola Samayoa RN Unavailable [phone] Reason for Visit * Reason Comments Med Refill Encounter Details Date Type Department Care Team (Late st Contact Info) Description 06/02/2021 Refill [facility] Endocrinology [address] [place] [address] Jeremiah Dior, DO [address] [address] Social History Tobacco Use Types Packs/Day Years Used Date Smoking Tobacco: Never Alcohol Use Standard Drinks/Week Comments No 0 (1 standard drink = 0.6 oz pure alcohol) Alcoholic Drinks/day: Never Drank Alcohol Comments Unknown Sex and Gender Information Value Date Recorded Sex Assigned at Not on file Legal Sex Female 8:39 PM EDT Gender Identity Not on file Sexual Orientation Not on file documented as of this encounter Plan of Treatment Upcoming Encounters Date Type Department Care Team (Late st Contact Info) Description 10/16/2025 9:00 AM EDT [facility] [address] [place] [address] (3), Giuseppe Suarez Fellow documented as of this encounter Visit Diagnoses Not on filedocumented in this encounter Care Teams Hydroelectric Mechanic Relationship Specialty Start Date End Date Choco Thomas MD [address] [facility] [address] [place] [address] PCP - General 08/26/21 Yola Samayoa RN [address] [facility] [address] [place] [address] Hand Drawer In Helper Internal Medicine 07/12/23 04/17/24 documented as of this encounter
--- OUTSIDE RECORDS SUMMARY | 2025-07-13 07:14 | XMS_ITS | Encounter Summary ---
Author Organization [facility] Address [address] [place] [id number] Care Team Providers Care Grave Digger Name Role Phone Choco Thomas MD Primary Care Provider + [phone] Yola Samayoa RN Unavailable [phone] Reason for Visit * Reason Comments Med Refill Encounter Details Date Type Department Care Team (Late st Contact Info) Description 09/21/2022 Refill [facility] Endocrinology [address] [place] [address] Anthony Celis, DO [address] [place] [phone] Subclinical hypothyroidism Social History Tobacco Use Types Packs/Day Years [...] Description 10/16/2025 9:00 AM EDT Office Visit [facility] Endocrinology [address] [place] [address] (3)Giuseppe Fellow documented as of this encounter Visit Diagnoses Diagnosis Subclinical hypothyroidism Other specified acquired hypothyroidism documented in this encounter Additional Health Concerns Assessment Noted Time A fall risk assessment has been complete d for the patient 05/19/2022 9:32 AM EDT documented as of this encounter Care Teams Grave Digger Relationship Specialty Start Date End Date Choco Thomas MD [address] [place] [address] PCP - General 08/26/21 Yola Samayoa RN [address] [place] [phone] Photogrammetric Stereo Compiler Internal Medicine 07/12/23 04/17/24 documented as of this encounter
--- OUTSIDE RECORDS SUMMARY | 2025-07-13 07:14 | XMS_ITS ---
Author Organization [facility] Address [address] [place] [address] Care Team Providers Care Metal Moulder Name Role Phone Choco Thomas MD Primary Care Provider + [phone] Rheumatology - External Fill Status:Enrolled (Active) Start date:10/19/2024 Enrollment date:10/19/2024 Enrollment reason:Identified as being on target medication Current support & services provided:Benefits Investigation, External Pharmacy Dispensing Linked medications:Ixekizumab (Active) Linked problems:Psoriatic arthritis (Active) Overview [employer] insurance, must fill with [facility] Continued Care and Services Coordination
--- OUTSIDE RECORDS SUMMARY | 2025-07-13 07:14 | XMS_ITS | Encounter Summary ---
Author Organization [facility] Address [address] [place] [address] Care Team Providers Care Gig Tender Name Role Phone Choco Thomas MD Primary Care Provider [phone] Encounter Details Date Type Department Care Team (Late st Contact Info) Description 07/04/2025 Refill [facility] Endocrinology [address] [place] [address] Giuseppe Suarez MD [address] [address] Subclinical hypothyroidism; Hyperlipidemia, unspecified hyperlipidemia type Social History Tobacco Use Types Packs/Day Years [...] Description 10/16/2025 9:00 AM EDT Office Visit [facility] Endocrinology [address] [place] [address] (3), Giuseppe Suarez Fellow documented as of this encounter Visit Diagnoses Diagnosis Subclinical hypothyroidism Other specified acquired hypothyroidism Hyperlipidemia, unspecified hyperlipidemia type documented in this encounter Additional Health Concerns Assessment Noted Time A fall risk assessment has been complete d for the patient 06/15/2023 10:41 AM EST A Body Mass Index follow-up plan has been documented for the patient 03/06/2025 8:48 AM EDT documented as of this encounter Care Teams Gig Tender Relationship Specialty Start Date End Date Choco Thomas MD [address] [place] [address] PCP - General 08/26/21 documented as of this encounter
--- OUTSIDE RECORDS SUMMARY | 2025-07-13 07:14 | XMS_ITS | Encounter Summary ---
Author Organization [facility] Address [address] [place] [address] Care Team Providers Care Van Driver Name Role Phone Choco Thomas MD Primary Care Provider + [phone] Encounter Details Date Type Department Care Team (Late Contact Info) Description 12/13/2024 Results Follow-Up [facility] RHEUMATOLOGY [address] [address] Lanre Stark, VENU [address] [phone] Social History Tobacco Use Types Packs/Day Years [...] Description 10/18/2025 8:30 AM EDT Office Visit [facility] RHEUMATOLOGY [address] [address] Riley Diop DO [address] [id number] documented as of this encounter Visit Diagnoses Not on filedocumented in this encounter Care Teams Van Driver Relationship Specialty Start Date End Date Choco Thomas MD 1210 [place] [facility] [address] [place] [address] PCP - General Adolescent Medicine 09/19/18 documented as of this encounter
--- OUTSIDE RECORDS SUMMARY | 2025-07-13 07:14 | XMS_ITS | Encounter Summary ---
Author Organization [facility] Address [address] [place] [id number] Care Team Providers Care Payroll Auditor Name Role Phone Choco Thomas MD Primary Care Provider + [phone] Reason for Visit * Reason Comments Med Refill Encounter Details Date Type Department Care Team (Late st Contact Info) Description 07/04/2025 Refill [facility] Endocrinology [address] [place] [phone] Ivan Palacios, DO [address] [place] [phone] Hyperlipidemia, unspecified hyperlipidemia type Social History Tobacco [...] Miscellaneous Notes * Telephone Encounter - Ra Rodriguez PharmD - 07/04/2025 9:57 AM EST Refill request does not meet protocol. Sending to clinic for review. Additional info: Provider not on protocol. documented in this encounter Plan of Treatment Upcoming Encounters Date Type Department Care Team (Late st Contact Info) Description 10/16/2025 9:00 AM EDT Office Visit [facility] Endocrinology [facility] [place] [address] (3), Giuseppe Suarez Fellow documented as of this encounter Visit Diagnoses Diagnosis Hyperlipidemia, unspecified hyperlipidemia type documented in this encounter Additional Health Concerns Assessment Noted Time A fall risk assessment has been complete d for the patient 06/15/2023 10:41 AM EST A Body Mass Index follow-up plan has been documented for the patient 03/06/2025 8:48 AM EDT documented as of this encounter Care Teams Payroll Auditor Relationship Specialty Start Date End Date Choco Thomas MD [address] [place] [address] PCP - General 08/26/21 documented as of this encounter
--- OUTSIDE RECORDS SUMMARY | 2025-07-13 07:14 | XMS_ITS | Encounter Summary ---
Author Organization [facility] Address [address] [place] [address] Care Team Providers Care Cnc Service Engineer Name Role Phone Choco Thomas MD Primary Care Provider + [phone] Encounter Details Date Type Department Care Team (Late Contact Info) Description 01/04/2025 Results Follow-Up [facility] RHEUMATOLOGY [address] [address] Lanre Stark, VENU [address] [phone] Social History Tobacco Use Types Packs/Day Years [...] Description 10/18/2025 8:30 AM EDT Office Visit [facility] RHEUMATOLOGY [address] [address] Riley Diop DO [address] [phone] documented as of this encounter Visit Diagnoses Not on filedocumented in this encounter Care Teams Cnc Service Engineer Relationship Specialty Start Date End Date Choco Thomas MD [address] [place] [facility] [address] [place] [address] PCP - General Adolescent Medicine 09/19/18 documented as of this encounter
--- OUTSIDE RECORDS SUMMARY | 2025-07-13 07:14 | XMS_ITS | Encounter Summary ---
Author Organization [facility] Address [address] [place] [address] Care Team Providers Care Protein Purification Scientist Name Role Phone Choco Thomas MD Primary Care Provider + [phone] Yola Samayoa RN Unavailable [phone] Reason for Visit * Reason Comments Med Refill Encounter Details Date Type Department Care Team (Late st Contact Info) Description 02/15/2022 Refill [facility] Endocrinology [address] [place] [address] Jeremiah Dior, DO [address] [address] Type 1 diabetes mellitus with other specified complication (CMS/HCC) Social History Tobacco Use Types Packs/Day [...] on file Sexual Orientation Not on file COVID-19 Exposure Response Date Recorded In the last 10 days, have yo u been in contact with someone who was confirmed or suspected to have Coronavirus/COVID-19? No / Unsure 02/03/2022 8:04 AM EDT documented as of this encounter Plan of Treatment Upcoming Encounters Date Type Department Care Team (Late st Contact Info) Description 10/16/2025 9:00 AM EDT [facility] [address] [place] [address] (3), Giuseppe Suarez Fellow documented as of this encounter Visit Diagnoses Diagnosis Type 1 diabetes mellitus with other specified complication documented in this encounter Additional Health Concerns Assessment Noted Time A fall risk assessment has been complete d for the patient 01/14/2022 10:48 AM EDT documented as of this encounter Care Teams Protein Purification Scientist Relationship Specialty Start Date End Date Choco Thomas MD [address] [place] [address] PCP - General 08/26/21 Yola Samayoa RN [address] [place] [address] Shaving Machine Operator Internal Medicine 07/12/23 04/17/24 documented as of this encounter
--- NOTE | 2025-07-13 07:21 | US_ITS ---
FINAL REPORT CLINICAL HISTORY: MASS OF ANTERIOR ABD WALL FINDINGS: Limited sonographic images were obtained of the soft tissues in the anterior abdominal wall at the area reported palpable abnormalities. There are 2 anechoic collections in the anterior abdominal wall at the areas of interest. The larger collection measures 2 cm in the smaller measures 1.5 cm. These could represent seromas, hematomas, or, less likely, abscesses. No defect in the anterior abdominal wall identified. IMPRESSION: Two fluid collections anterior abdominal wall. No convincing hernia. These could be seromas, hematomas, or, less likely, abscesses. Consider CT scan for further evaluation. Reviewed, Interpreted and Dictated by Marilyn Gay MD Transcribed by Gladis Harvey Authenticated and [facility]
== END 2025-07-13 23:59 | disposition home or self-care (01) ==
LOC: RAD 07:11
PROVIDERS: PCP Nurse Practitioner Family; Visit Provider Nurse Practitioner Family
DX: R93.5 Abnormal findings on diagnostic imaging of other abdominal regions, including retroperitoneum (principal)
CPT/HCPCS: 76705

== ENCOUNTER 2025-07-28 08:18 | Outpatient (CLI) | payer BC, SELFPAY ==
--- OUTSIDE RECORDS SUMMARY | 2025-07-28 08:20 | XMS_ITS | Clinical Summary ---
Author Organization [facility] Address [address] [place] [address] Care Team Providers Care Rough Rib Grader Name Role Phone Choco Thomas MD Primary Care Provider + [phone] Allergies No known active allergies Medications lisinopril [...] tablet by mouth. 4 Active Continuous Glucose Senior Cognos Developer (Dexcom G7 Senior Cognos Developer) device Daily. use as directed 4 Active [...] Type Department Care Team Description 06/06/2025 Telephone [facility] RHEUMATOLOGY [address] [address] Jesus Willis, LynneD from Last 3 Months Immunizations Immunization Administration [...] Description 10/18/2025 8:30 AM EDT Office [facility] RHEUMATOLOGY [address] [address] Riley Diop DO [address] [facility] [address] [place] [address] Health Maintenance Due Date Last Done Comments [...] Completed 04/09/2024, 04/10, 02/23/2023 Insurance [place] [id number] [facility] PPO Care Teams Rough Rib Grader Relationship Specialty Start Date End Date Choco Thomas MD 1210 [facility] [address] [place] PCP - General Adolescent Medicine 09/19/18
--- OUTSIDE RECORDS SUMMARY | 2025-07-28 08:20 | XMS_ITS | Encounter Summary ---
Author Organization [facility] Address [address] [place] [phone] Care Team Providers Care Diesel Automotive Technician Name Role Phone Choco Thomas MD Primary Care Provider + [phone] Reason for Visit * Reason Comments Med Refill Encounter Details Date Type Department Care Team (Late st Contact Info) Description 07/04/2025 Refill [facility] Endocrinology [address] [place] [phone] Ivan Palacios, DO [address] [place] [phone] Hyperlipidemia, unspecified hyperlipidemia type Social History Tobacco [...] Description 10/16/2025 9:00 AM EDT Office Visit [facility] Endocrinology [facility]5 [place] [address] (3), Giuseppe Suarez Fellow documented as of [...] documented as of this encounter Care Teams Diesel Automotive Technician Relationship Specialty Start Date End Date Choco Thomas MD [address] [place] [address] PCP - General 08/26/21 documented as of this encounter
--- OUTSIDE RECORDS SUMMARY | 2025-07-28 08:20 | XMS_ITS | Encounter Summary ---
[facility] [address] [place] [id number] Care Team Providers Care Logger Name Role Phone Choco Thomas MD Primary Care Provider + [phone] Reason for Visit * Reason Onset Date Comments Med Refill 04/18/2025 Encounter Details Date Type Department Care Team (Late st Contact Info) Description 04/18/2025 Refill [facility] RHEUMATOLOGY [address] [address] Riley Diop DO [address] [address] Social History Tobacco Use Types Packs/Day Years [...] Description 10/18/2025 8:30 AM EDT Office Visit [facility] RHEUMATOLOGY [address] [address] Riley Diop DO [address] [phone] documented as of this encounter Visit Diagnoses Not on filedocumented in this encounter Care Teams Logger Relationship Specialty Start Date End Date Choco Thomas MD 1210 [place] [facility] [address] [place] [address] PCP - General Adolescent Medicine 09/19/18 documented as of this encounter
--- OUTSIDE RECORDS SUMMARY | 2025-07-28 08:20 | XMS_ITS | Encounter Summary ---
Author [facility] Address [address] [place] [address] Care Team Providers Care Internet E Commerce Specialist Name Role Phone Choco Thomas MD Primary Care Provider + [phone] Encounter Details Date Type Department Care Team (Late Contact Info) Description 01/04/2025 Results Follow-Up [facility] RHEUMATOLOGY [address] [address] Lanre Stark, VENU [address] [phone] Social History Tobacco Use Types Packs/Day Years [...] 10/18/2025 8:30 AM EDT Office Visit [facility] RHEUMATOLOGY [address] [address] Riley Diop DO [address] [phone] documented as of this encounter Visit Diagnoses Not on filedocumented in this encounter Care Teams Internet E Commerce Specialist Relationship Specialty Start Date End Date Choco Thomas MD 1210 [place] [facility] [address] [place] [address] PCP - General Adolescent Medicine 09/19/18 documented as of this encounter
--- OUTSIDE RECORDS SUMMARY | 2025-07-28 08:20 | XMS_ITS | Encounter Summary ---
[facility] [address] [place] [address] Care Team Providers Care Optometry Doctor Name Role Phone Choco Thomas MD Primary Care Provider + [phone] Encounter Details Date Type Department Care Team (Late Contact Info) Description 12/18/2024 Results Follow-Up [facility] RHEUMATOLOGY [address] [address] Lanre Stark, VENU [address] [phone] Social History Tobacco Use Types Packs/Day Years [...] Description 10/18/2025 8:30 AM EDT Office Visit [facility] RHEUMATOLOGY [address] [address] Riley Diop DO [address] [phone] documented as of this encounter Visit Diagnoses Not on filedocumented in this encounter Care Teams Optometry Doctor Relationship Specialty Start Date End Date Choco Thomas MD 1210 [place] [facility] [address] [place] [address] PCP - General Adolescent Medicine 09/19/18 documented as of this encounter
--- OUTSIDE RECORDS SUMMARY | 2025-07-28 08:20 | XMS_ITS | Encounter Summary ---
Author Organization [facility] Address [address] [place] [address] Care Team Providers Care Ground Service Equipment Mechanic Name Role Phone Choco Thomas MD Primary Care Provider + [phone] Yola Samayoa RN Unavailable [phone] Reason for Visit * Reason Comments Med Refill Encounter Details Date Type Department Care Team (Late st Contact Info) Description 06/24/2023 [facility] [address] [place] [address] Rosy Casper MD [address] [address] Type 1 diabetes mellitus with [...] Description 10/16/2025 9:00 AM EDT Office Visit [facility] Endocrinology [address] [place] [phone] (3), Giuseppe Suarez Fellow documented as of [...] documented as of this encounter Care Teams Ground Service Equipment Mechanic Relationship Specialty Start Date End Date Choco Thomas MD [address] [place] [address] PCP - General 08/26/21 Yola Samayoa RN [address] [place] [address] Precision Assembler Internal Medicine 07/12/23 04/17/24 documented as of this encounter
--- OUTSIDE RECORDS SUMMARY | 2025-07-28 08:20 | XMS_ITS | Encounter Summary ---
Author Organization [facility] Address [address] [place] [address] Care Team Providers Care Head Sawyer Name Role Phone Choco Thomas MD Primary Care Provider [phone] Encounter Details Date Type Department Care Team (Late st Contact Info) Description 07/04/2025 Refill [facility] Endocrinology [address] [place] [address] Giuseppe Suarez MD [address] [address] Subclinical hypothyroidism; Hyperlipidemia, unspecified hyperlipidemia [...] Description 10/16/2025 9:00 AM EDT Office Visit [facility] Endocrinology [address] [place] [address] (3), Giuseppe Suarez Fellow documented as of [...] documented as of this encounter Care Teams Head Sawyer Relationship Specialty Start Date End Date Choco Thomas MD [address] [place] [address] PCP - General 08/26/21 documented as of this encounter
--- OUTSIDE RECORDS SUMMARY | 2025-07-28 08:20 | XMS_ITS | Encounter Summary ---
[facility] Organization [facility] Address [address] [place] [address] Care Team Providers Care Maintenance Painter Apprentice Name Role Phone Choco Thomas MD Primary Care Provider + [phone] Encounter Details Date Type Department Care Team (Late st Contact Info) Description 06/06/2025 Telephone [facility] RHEUMATOLOGY [address] [place] [address] Jesus Willis, PharmD [address] [place] [address] Social History Tobacco Use Types Packs/Day Years [...] Approving PA: [facility] PA Number: [id number] PA Effective Dates: 05/07/25-06/06/26 Dispensing Pharmacy: [facility] [...] 10/18/2025 8:30 AM EDT Office Visit [facility] RHEUMATOLOGY [address] [phone] Riley Diop DO 330 [facility] 100 [place] [address] documented as of this encounter Visit Diagnoses Not on filedocumented in this encounter Care Teams Maintenance Painter Apprentice Relationship Specialty Start Date End Date Choco Thomas MD 1210 [facility] [address] [facility] [address] [place] [address] PCP - General Adolescent Medicine 09/19/18 documented as of this encounter
--- OUTSIDE RECORDS SUMMARY | 2025-07-28 08:20 | XMS_ITS | Clinical Summary ---
Author Organization [facility] Address [address] [place] [address] Care Team Providers Care Postage Machine Operator Name Role Phone Choco Thomas MD Primary Care Provider + [phone] Allergies No known active allergies Medications lisinopril 5 MG tabletIndications :Hypertension, unspecified type Take 1 tablet (5 mg total) by mouth 1 (one) time each day. PATIENT NEEDS TO SCHEDULE AN APPOINTMENT 90 tablet 021 Active Tremfya 100 MG/ML solution pen-injector 022 Active sertraline (Zoloft) 100 MG tablet Take 1 tablet (100 mg) by mouth in the morning. 022 Active fluocinonide (Lidex) 0.05 % external solution 023 Active erythromycin (Romycin) 5 MG/GM ophthalmic ointment APPLY 1/4 INCH STRIP IN OPERATIVE EYE TWICE A DAY 023 Active Continuous Blood Gluc Transmit (Dexcom G6 transmitter) miscIndications:T ype 1 diabetes mellitus with hypoglycemia and without coma Use as instructed 1 each 1 023 Active Continuous Blood Gluc Manager Mail (Dexcom G7 Manager Mail) deviceIndications :Type 1 diabetes mellitus with hypoglycemia and without coma USE ONCE DAILY 1 each 023 Active brimonidine (AlphaGAN P) 0.2 % ophthalmic solution Administer 1 drop into both eyes in the morning and 1 drop before bedtime. 024 Active glucose blood (FilterBoxx Water & Environmentaluch Ultra) test stripIndications: Type 1 diabetes mellitus with other specified complication USE 1 STRIP TO CHECK GLUCOSE 4 TIMES DAILY 100 each 2 Active pen needle, diabetic (B-D UF III MINI PEN NEEDLES) 31G X 5 MM misc USE 1 PEN NEEDLE 4 TIMES DAILY 100 each 2 Active insulin degludec (Tresiba FlexTouch) 100 UNIT/ML injection penIndications:Ty pe 1 diabetes mellitus with other specified complication Inject 5 units once daily titrate up if necessary MDD 10 DISPOSE OF PEN AFTER 30 DAYS OF USE 15 mL 1 Active Caltrate 600+D3 600-20 MG-MCG tablet Take 1 tablet by mouth in the morning and 1 tablet before bedtime. Active Taltz 80 MG/ML solution auto-injector Active neomycin-polymyxi n-dexamethamethas one (Polydex) 3.5-95661-3.1 ointment ophthalmic ointment Active simvastatin (Zocor) 40 MG tablet Take 1 tablet by mouth nightly. Active Continuous Glucose Sensor (Dexcom G7 Sensor) miscIndications:T ype 1 diabetes mellitus with other ophthalmic complication CHANGE 1 SENSOR EVERY 10 DAYS 9 each Active Glucagon, rDNA, (Glucagon Emergency) 1 MG kitIndications:Ty pe 1 diabetes mellitus with hypoglycemia and without coma Use as directed in the event of severe hypoglycemia 1 kit Active levothyroxine (Synthroid, Levoxyl) 50 MCG tabletIndications :Subclinical hypothyroidism Take 1 tablet by mouth daily. 90 tablet 3 025 2025 Active rosuvastatin (Crestor) 20 MG tabletIndications :Hyperlipidemia, unspecified hyperlipidemia type Take 1 tablet by mouth daily. 90 tablet 3 Active Insulin Lispro Reagan KwikPen 100 UNIT/ML SC injection pen INJECT BEFORE EACH MEAL. INJECT 1 UNIT FOR EVERY 30 GRAMS OF CARBS, PLUS 1:70 CORRECTION FOR HIGHBLOOD SUGAR, MAX DAILY DOSE OF 30. 15 mL 1 Active levothyroxine (Synthroid, Levoxyl) 50 MCG tabletIndications :Subclinical hypothyroidism Take 1 tablet (50 mcg) by mouth 1 (one) time each day. 90 tablet 3 024 2024 Discontinued(R eorder) rosuvastatin (Crestor) 20 MG tabletIndications :Hyperlipidemia, unspecified hyperlipidemia type Take 1 tablet (20 mg) by mouth 1 (one) time each day. 90 tablet 3 024 2024 Discontinued(R eorder) Insulin Lispro Reagan KwikPen 100 UNIT/ML SC injection pen INJECT BEFORE EACH MEAL, 1 UNIT FOR EVERY 30 GRAMS CARBOHYDRATE, PLUS 1:70 CORRECTION FOR HIGH BLOOD SUGAR, MAX DAILY DOSE 30 UNITS, Normal 15 mL 2 025 2024 Discontinued Active Problems Problem Noted Date Diagnosed Date Hyperlipidemia 01/14/2022 Psoriatic arthritis 08/26/2021 Other neutropenia 10/17/2018 Subclinical hypothyroidism 03/30/2018 Diabetic hypoglycemia 05/09/2014 Type 1 diabetes mellitus with other specified co mplication 03/08/2013 Encounters Date Type Department Care Team Description 07/12/2025 Refill [facility] Endocrinology [address] [place] [address] Mariza Anderson MBBS 07/04/2025 Refill [facility] Endocrinology [address] [place] [address] Giuseppe Suarez MD Subclinical hypothyroidism; Hyperlipidemia, unspecified hyperlipidemia type 07/04/2025 Refill [facility] Endocrinology [address] [place] [address] Ivan Palacios DO Hyperlipidemia, unspecified hyperlipidemia type 05/25/2025 Refill [facility] Endocrinology [address] [phone] Giuseppe Suarez MD Type 1 diabetes mellitus with hypoglycemia and without coma 05/07/2025 Refill [facility] Endocrinology [address] [place] [address] Giuseppe Suarez MD 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 pato fied surface antigen) 05/09/2020 Influenza, injectable, quadrivalent 04/23/2018,1 Influenza, injectable, quadr ivalent, preservative free 05/16/2021,05/10/2020,05/11/2017 Influenza, recombinant, quad rivalent, injectable, preservative free 05/29/2022 Moderna COVID-19 Vaccine (Re d Cap) 12+ years 01/23/2022,04/19/2021,10/19/2020,2020 Tdap 10/26/2017 Family History Medical History Relation Name Comments Hypertension Father Kimmei Purdy Diabetes Mother Kimmie Purdy Hypertension Mother [...] Description 10/16/2025 9:00 AM EDT Office Visit [facility] Endocrinology [address] [place], [place] [address] [address] (3), Giuseppe Suarez Fellow Health Maintenance Due Date Last Done Comments [facility]-HIV Screening 1961 [facility]-Hepatitis C Screening 1961 [facility]-/Child/Adol SDOH Screenings 1961 Diabetes: Dental Exam 10/14/1971 [facility]- SDOH Screenings 10/14/1979 [facility]-Adult SDOH Screenings 10/14/1979 [facility]-Pap Smear 1982 [facility]-Cervical Cancer Screening 10/14/1991 [facility]-HPV/Cotest 10/14/1991 CT Colonography 2006 Colonoscopy 2006 FIT-DNA 2006 FIT 2006 FOBT 2006 Sigmoidoscopy 2006 [facility]-Colorectal Cancer Screening 2006 [facility]-Breast Cancer Screening 10/14/2011 [facility]-Depression Screening 01/13/2024 01/12/2023 [id number]-18 Vaccine ( season) 2025 05/19/2024, 05/08/2023, 01/23/2022, [...] 60+ Years or Completed 05/19/2024 HPV Vaccines (No Doses Required) Completed [facility]-HIB Vaccines Aged Out No longer e [...] [facility] Kit Expiration Date 12/06/26 [facility] Blood Venous blood specimen / Unknown 02/20/2025 8:08 AM EDT Giuseppe Suarez MD POINT OF CARE TEST ENTER/EDIT ORDERABLES Edited Result - Final Performing Organization Address City/State/[facility] Co de Phone Number [facility] [address] [place] [phone] from Last 3 Months or Most Recently Relevant to Health Maintenance Insurance [employer] Care Teams Postage Machine Operator Relationship Specialty Start Date End Date Choco Thomas MD [address] [place] [address] [facility] - General 08/26/21
--- OUTSIDE RECORDS SUMMARY | 2025-07-28 08:20 | XMS_ITS | Encounter Summary ---
Author Organization [facility] Address [address] [place] [address] Care Team Providers Care Camp Manager Name Role Phone Choco Thomas MD Primary Care Provider + [phone] Yola Samayoa RN Unavailable [phone] Reason for Visit * Reason Comments Med Refill Encounter Details Date Type Department Care Team (Late st Contact Info) Description 02/15/2022 Refill [facility] End[facility] [address] [place] [address] Jeremiah Dior, DO [address] [address] Type 1 diabetes mellitus with [...] Description 10/16/2025 9:00 AM EDT [facility] [address] [place] [address] (3), Giuseppe Suarez Fellow documented as of this encounter Visit Diagnoses Diagnosis Type 1 diabetes mellitus with other specified complication documented in this encounter Additional Health Concerns Assessment Noted Time A fall risk assessment has been complete d for the patient 01/14/2022 10:48 AM EDT documented as of this encounter Care Teams Camp Manager Relationship Specialty Start Date End Date Choco Thomas MD [address] [place] [address] PCP - General 08/26/21 Yola Samayoa RN [address] [place] [address] Curtains And Draperies Salesperson Internal Medicine 07/12/23 04/17/24 documented as of this encounter
--- OUTSIDE RECORDS SUMMARY | 2025-07-28 08:20 | XMS_ITS | Encounter Summary ---
Author Organization [facility] Address [address] [place] [id number] Care Team Providers Care Head Chopper Name Role Phone Choco Thomas MD Primary Care Provider + [phone] Reason for Visit * Reason Comments Med Refill Encounter Details Date Type Department Care Team (Late st Contact Info) Description 07/12/2025 Refill [facility] Endocrinology [address] [place] [address] Mariza Anderson MBBS [address] [place] [address] Social History Tobacco Use Types [...] encounter Miscellaneous Notes * Telephone Encounter - Katina Loera PharmD - 07/13/2025 9:13 AM EST 1 medication(s) has been approved per protocol. documented in this encounter Plan of Treatment Upcoming Encounters Date Type Department Care Team (Late st Contact Info) Description 10/16/2025 9:00 AM EDT [facility] [address] [place] [address] (3), Giuseppe Suarez Fellow documented as of this encounter Visit Diagnoses Not on filedocumented in this encounter Additional Health Concerns Assessment Noted Time A fall risk assessment has been complete d for the patient 06/15/2023 10:41 AM EST A Body Mass Index follow-up plan has been documented for the patient 03/06/2025 8:48 AM EDT documented as of this encounter Care Teams Head Chopper Relationship Specialty Start Date End Date Choco Thomas MD [address] [place] [address] PCP - General 08/26/21 documented as of this encounter
--- OUTSIDE RECORDS SUMMARY | 2025-07-28 08:20 | XMS_ITS | Encounter Summary ---
Author Organization [facility] Address [address] [place] [address] Care Team Providers Care Music Video Director Name Role Phone Choco Thomas MD Primary Care Provider + [phone] Yola Samayoa RN Unavailable [phone] Reason for Visit * Reason Comments Med Refill Encounter Details Date Type Department Care Team (Late st Contact Info) Description 06/02/2021 Refill [facility] Endocrinology [address] [place] [address] Jeremiah Dior, DO [address] [address] Social History Tobacco Use Types [...] Description 10/16/2025 9:00 AM EDT [facility] [address] [place] [address] (3), Giuseppe Suarez Fellow documented as of this encounter Visit Diagnoses Not on filedocumented in this encounter Care Teams Music Video Director Relationship Specialty Start Date End Date Choco Thomas MD 1210 [facility] [address] [place] [address] PCP - General 08/26/21 Yola Samayoa RN [address] [facility] [address] [place] [address] Pc Installation Engineer Internal Medicine 07/12/23 04/17/24 documented as of this encounter
--- OUTSIDE RECORDS SUMMARY | 2025-07-28 08:20 | XMS_ITS | Encounter Summary ---
Author Organization [facility] Address [address] [place] [address] Care Team Providers Care Manager Bridge Name Role Phone Choco Thomas MD Primary Care Provider + [phone] Encounter Details Date Type Department Care Team (Late Contact Info) Description 12/13/2024 Results Follow-Up [facility] RHEUMATOLOGY [address] [address] Lanre Stark, VENU [address] [phone] Social History Tobacco Use Types Packs/Day Years [...] [facility] [address] [address] Riley Diop DO [address] [phone] documented as of this encounter Visit Diagnoses Not on filedocumented in this encounter Care Teams Manager Bridge Relationship Specialty Start Date End Date Choco Thomas MD 1210 [facility] [address] [place] [address] PCP - General Adolescent Medicine 09/19/18 documented as of this encounter
--- OUTSIDE RECORDS SUMMARY | 2025-07-28 08:20 | XMS_ITS | Encounter Summary ---
Author Organization [facility] Address [address] [place] [id number] Care Team Providers Care Ultimate Hoops Referee Name Role Phone Choco Thomas MD Primary Care Provider + [phone] Yola Samayoa RN Unavailable [phone] Reason for Visit * Reason Comments Med Refill Encounter Details Date Type Department Care Team (Late st Contact Info) Description 09/21/2022 Refill [facility] Endocrinology [address] [place] [address] Anthony Celis, DO [address] [place] [phone] Subclinical hypothyroidism Social History Tobacco Use Types [...] Description 10/16/2025 9:00 AM EDT Office Visit [facility] Endocrinology [address] [place] [address] (3)Giuseppe Fellow documented as of this encounter Visit Diagnoses Diagnosis Subclinical hypothyroidism Other specified acquired hypothyroidism documented in this encounter Additional Health Concerns Assessment Noted Time A fall risk assessment has been complete d for the patient 05/19/2022 9:32 AM EDT documented as of this encounter Care Teams Ultimate Hoops Referee Relationship Specialty Start Date End Date Choco Thomas MD [address] [place] [address] PCP - General 08/26/21 Yola Samayoa RN [address] [place] [phone] Pharmacy Billing Adjudicator Internal Medicine 07/12/23 04/17/24 documented as of this encounter
--- OUTSIDE RECORDS SUMMARY | 2025-07-28 08:20 | XMS_ITS ---
Author Organization [facility] Address [address] [place] [address] Care Team Providers Care Security Support Analyst Name Role Phone Choco Thomas MD Primary Care Provider + [phone] Rheumatology - External Fill Status:Enrolled (Active) Start date:10/19/2024 Enrollment date:10/19/2024 Enrollment reason:Identified as being on target medication Current support & services provided:Benefits Investigation, External Pharmacy Dispensing Linked medications:Ixekizumab (Active) Linked problems:Psoriatic arthritis (Active) Overview [employer] insurance, must fill with [facility] Continued Care and Services Coordination
[2025-07-28 08:37] LABS: Blood Urea Nitrogen 18 mg/dl (7-17); Creatinine,Serum 1.10 mg/dl (0.52-1.04); Estimated Glomerular Filt Rate 50 ml/min (>60); GFR (African American) 61 ML/MIN (>60)
== END 2025-07-28 23:59 | disposition home or self-care (01) ==
LOC: LAB 08:18
PROVIDERS: PCP Nurse Practitioner Family; Visit Provider Nurse Practitioner Family
DX: R19.05 Periumbilic swelling, mass or lump (principal)
CPT/HCPCS: 36415; 82565; 84520

== ENCOUNTER 2025-07-31 07:47 | Outpatient (CLI) | payer BC, SELFPAY ==
--- NOTE | 2025-07-31 07:50 | CT_ITS ---
FINAL REPORT TECHNIQUE: Axial CT of the abdomen and pelvis, without and with IV contrast. This study was performed with techniques to keep radiation doses as low as reasonably achievable, (ALARA). Individualized dose reduction techniques using automated exposure control or adjustment of mA and/or kV according to the patient''s size were employed. CLINICAL HISTORY: ABDOMINAL WALL/COMPARE WITH PREVIOUS US FINDINGS: Abdomen: Lung bases are clear. There is a moderate size hiatal hernia. There is thickening of the distal esophagus and GE junction, although most commonly related to inflammation, neoplastic process cannot be excluded. Correlation with EGD is recommended. There is a left adrenal mass with density measurements exceeding that of a typical adenoma. Mass measures 20 mm. The remaining solid organs are unremarkable. The gallbladder is present. Precontrast imaging shows no renal stone disease. Postcontrast imaging of the kidneys shows no mass or obstruction. No bowel obstruction or fluid collection is seen. There is a left paramidline supraumbilical hernia containing fluid. The hernia sac measures 23 mm with abdominal wall defect measuring 7 mm. Pelvis: The appendix is not visualized. There is fluid-filled small bowel which can be seen with ileus or enteritis. The uterus and ovaries are unremarkable. The bladder has a normal appearance. No fluid collection or adenopathy is seen. IMPRESSION: Supraumbilical hernia containing fluid and fat. Fluid-filled small bowel which may be seen with ileus or enteritis. Indeterminate left adrenal mass. MR follow-up may be considered under adrenal mass protocol. Esophageal wall thickening. Recommend EGD correlation. Reviewed, Interpreted and Dictated by Remy Velasco MD Transcribed by Odalys Smith Authenticated and . [facility]
--- OUTSIDE RECORDS SUMMARY | 2025-07-31 07:52 | XMS_ITS | Encounter Summary ---
Author Organization [facility] Address [address] [place] [address] Care Team Providers Care Feed Mixer Helper Name Role Phone Choco Thomas MD Primary Care Provider + [phone] Yola Samayoa RN Unavailable [phone] Reason for Visit * Reason Comments Med Refill Encounter Details Date Type Department Care Team (Late st Contact Info) Description 02/15/2022 Refill [facility] End[facility] [address] [place] [address] Jeremiah Dior, DO [address] [address] Type 1 diabetes mellitus with [...] 10/16/2025 9:00 AM EDT [facility] [address] [place] [address] (3), Giuseppe Suarez Fellow documented as of this encounter Visit Diagnoses Diagnosis Type 1 diabetes mellitus with other specified complication documented in this encounter Additional Health Concerns Assessment Noted Time A fall risk assessment has been complete d for the patient 01/14/2022 10:48 AM EDT documented as of this encounter Care Teams Feed Mixer Helper Relationship Specialty Start Date End Date Choco Thomas MD [address] [place] [address] PCP - General 08/26/21 Yola Samayoa RN [address] [place] [phone] Uniform Force Captain Internal Medicine 07/12/23 04/17/24 documented as of this encounter
--- OUTSIDE RECORDS SUMMARY | 2025-07-31 07:52 | XMS_ITS | Encounter Summary ---
Author Organization [facility] Address [address] [place] [phone] Care Team Providers Care Safety Equipment Testing Specialist Name Role Phone Choco Thomas MD Primary Care Provider + [phone] Reason for Visit * Reason Comments Med Refill Encounter Details Date Type Department Care Team (Late st Contact Info) Description 07/04/2025 Refill [facility] Endocrinology [address] [place] [phone] Ivan Palacios, DO [address] [place] [phone] Hyperlipidemia, unspecified hyperlipidemia type Social History Tobacco [...] Description 10/16/2025 9:00 AM EDT Office Visit [facility] Endocrinology [facility] [place] [phone] (3), Giuseppe Suarez Fellow documented as of [...] documented as of this encounter Care Teams Safety Equipment Testing Specialist Relationship Specialty Start Date End Date Choco Thomas MD [address] [place] [address] PCP - General 08/26/21 documented as of this encounter
--- OUTSIDE RECORDS SUMMARY | 2025-07-31 07:52 | XMS_ITS | Clinical Summary ---
Author Organization [facility] Address [address] [place] [address] Care Team Providers Care Returning Officer Name Role Phone Choco Thomas MD Primary Care Provider + [phone] Allergies No known active allergies Medications lisinopril [...] tablet by mouth. 4 Active Continuous Glucose Airplane Captain (Dexcom G7 Airplane Captain) device Daily. use as directed 4 Active [...] Type Department Care Team Description 06/06/2025 Telephone [facility] RHEUMATOLOGY [address] [address] Jesus Willis, LynneD from Last [...] Description 10/18/2025 8:30 AM EDT Office Visit [facility] RHEUMATOLOGY [address] [address] Riley Diop DO 330 [facility] [address] [place] [address] Health Maintenance Due Date Last Done Comments [...] Completed 04/09/2024, 04/10, 02/23/2023 Insurance [place] [id number] [facility] PPO Care Teams Returning Officer Relationship Specialty Start Date End Date Choco Thomas MD 1210 [facility] [address] [place] PCP - General Adolescent Medicine 09/19/18
--- OUTSIDE RECORDS SUMMARY | 2025-07-31 07:52 | XMS_ITS | Encounter Summary ---
Author Organization [facility] Address [address] [place] [address] Care Team Providers Care Merchandising Specialist Name Role Phone Choco Thomas MD Primary Care Provider + [phone] Yola Samayoa RN Unavailable [phone] Reason for Visit * Reason Comments Med Refill Encounter Details Date Type Department Care Team (Late st Contact Info) Description 06/02/2021 Refill [facility] Endocrinology [address] [place] [address] Jeremiah Dior, DO [address] [address] Social History Tobacco Use Types [...] 10/16/2025 9:00 AM EDT [facility] [address] [place] [address] (3), Giuseppe Suarez Fellow documented as of this encounter Visit Diagnoses Not on filedocumented in this encounter Care Teams Merchandising Specialist Relationship Specialty Start Date End Date Choco Thomas MD 1210 [facility] [address] [place] [address] PCP - General 08/26/21 Yola Samayoa RN [address] [facility] [address] [place] [address] Classified Ad Clerk Internal Medicine 07/12/23 04/17/24 documented as of this encounter
--- OUTSIDE RECORDS SUMMARY | 2025-07-31 07:52 | XMS_ITS | Encounter Summary ---
Author Organization [facility] Address [address] [place] [phone] Care Team Providers Care Chief Meteorologist Name Role Phone Choco Thomas MD Primary Care Provider + [phone] Reason for Visit * Reason Onset Date Comments Med Refill 04/18/2025 Encounter Details Date Type Department Care Team (Late st Contact Info) Description 04/18/2025 Refill [facility] RHEUMATOLOGY [address] [address] Riley Diop DO [address] [address] Social History Tobacco Use Types Packs/Day Years [...] Description 10/18/2025 8:30 AM EDT Office Visit [facility] RHEUMATOLOGY [address] [address] Riley Diop DO [address] [phone] documented as of this encounter Visit Diagnoses Not on filedocumented in this encounter Care Teams Chief Meteorologist Relationship Specialty Start Date End Date Choco Thomas MD [address] [place] [facility] [address] [place] [address] PCP - General Adolescent Medicine 09/19/18 documented as of this encounter
--- OUTSIDE RECORDS SUMMARY | 2025-07-31 07:52 | XMS_ITS | Encounter Summary ---
Author Organization [facility] Address [address] [id number] Care Team Providers Care Tow Operator Name Role Phone Choco Thomas MD Primary Care Provider + [phone] Reason for Visit * Reason Comments Med Refill Encounter Details Date Type Department Care Team (Late st Contact Info) Description 07/12/2025 Refill [facility] Endocrinology [address] [place] [address] Mariza Anderson MBBS [address] [place] [address] Social History Tobacco Use Types [...] 10/16/2025 9:00 AM EDT [facility] [address] [place] [address] (3), Giuseppe Suarez Fellow documented as of this encounter Visit Diagnoses Not on filedocumented in this encounter Additional Health Concerns Assessment Noted Time A fall risk assessment has been complete d for the patient 06/15/2023 10:41 AM EST A Body Mass Index follow-up plan has been documented for the patient 03/06/2025 8:48 AM EDT documented as of this encounter Care Teams Tow Operator Relationship Specialty Start Date End Date Choco Thomas MD [address] [place] [address] PCP - General 08/26/21 documented as of this encounter
--- OUTSIDE RECORDS SUMMARY | 2025-07-31 07:52 | XMS_ITS | Encounter Summary ---
Author Organization [facility] Address [address] [place] [address] Care Team Providers Care Furniture Finisher Apprentice Name Role Phone Choco Thomas MD Primary Care Provider + [phone] Encounter Details Date Type Department Care Team (Late st Contact Info) Description 06/06/2025 Telephone [facility] RHEUMATOLOGY [address] [place] [address] Jesus Willis, PharmD [address] [place] [address] Social History Tobacco Use Types Packs/Day Years [...] Approving PA: [facility] PA Number: [id number] PA Effective Dates: 05/07/25-06/06/26 Dispensing Pharmacy: [facility] [...] Office Visit [facility] RHEUMATOLOGY [address] [phone] Riley Diop DO 330 [facility] 100 [place] [address] documented as of this encounter Visit Diagnoses Not on filedocumented in this encounter Care Teams Furniture Finisher Apprentice Relationship Specialty Start Date End Date Choco Thomas MD 1210 [facility] [address] [facility] 2A [place] [address] PCP - General Adolescent Medicine 09/19/18 documented as of this encounter
--- OUTSIDE RECORDS SUMMARY | 2025-07-31 07:52 | XMS_ITS | Encounter Summary ---
[facility] Organization [facility] Address [address] [place] [address] Care Team Providers Care Case Therapist Name Role Phone Choco Thomas MD Primary Care Provider + [phone] Encounter Details Date Type Department Care Team (Late Contact Info) Description 12/13/2024 Results Follow-Up [facility] RHEUMATOLOGY [address] [address] Lanre Stark, VENU [address] [phone] Social History Tobacco Use Types Packs/Day Years [...] Description 10/18/2025 8:30 AM EDT Office Visit [facility] RHEUMATOLOGY [address] [address] Riley Diop DO [address] [phone] documented as of this encounter Visit Diagnoses Not on filedocumented in this encounter Care Teams Case Therapist Relationship Specialty Start Date End Date Choco Thomas MD 1210 [facility] [address] [place] [address] PCP - General Adolescent Medicine 09/19/18 documented as of this encounter
--- OUTSIDE RECORDS SUMMARY | 2025-07-31 07:52 | XMS_ITS | Encounter Summary ---
Author Organization [facility] Address [address] [id number] Care Team Providers Care Developing Machine Operator Name Role Phone Choco Thomas MD Primary Care Provider + [phone] Yola Samayoa RN Unavailable [phone] Reason for Visit * Reason Comments Med Refill Encounter Details Date Type Department Care Team (Late st Contact Info) Description 09/21/2022 Refill [facility] Endocrinology [address] [place] [address] Anthony Celis, DO [address] [phone] Subclinical hypothyroidism Social History Tobacco Use Types [...] Description 10/16/2025 9:00 AM EDT Office Visit [facility] Endocrinology [address] [place] [address] (3)Giuseppe Fellow documented as of this encounter Visit Diagnoses Diagnosis Subclinical hypothyroidism Other specified acquired hypothyroidism documented in this encounter Additional Health Concerns Assessment Noted Time A fall risk assessment has been complete d for the patient 05/19/2022 9:32 AM EDT documented as of this encounter Care Teams Developing Machine Operator Relationship Specialty Start Date End Date Choco Thomas MD [address] [place] [address] PCP - General 08/26/21 Yola Samayoa RN [address] [place] [address] Hand Woodworking Sander Internal Medicine 07/12/23 04/17/24 documented as of this encounter
--- OUTSIDE RECORDS SUMMARY | 2025-07-31 07:52 | XMS_ITS | Encounter Summary ---
Author Organization [facility] Address [address] [place] [address] Care Team Providers Care Hide Mill Man Name Role Phone Choco Thomas MD Primary Care Provider + [phone] Yola Samayoa RN Unavailable [phone] Reason for Visit * Reason Comments Med Refill Encounter Details Date Type Department Care Team (Late st Contact Info) Description 06/24/2023 [facility] [address] [place] [address] Rosy Casper MD [address] [address] Type 1 diabetes mellitus with [...] Description 10/16/2025 9:00 AM EDT Office Visit [facility] Endocrinology [address] [place] [phone] (3), Giuseppe Suarez Fellow documented as of [...] documented as of this encounter Care Teams Hide Mill Man Relationship Specialty Start Date End Date Choco Thomas MD [address] [place] [address] PCP - General 08/26/21 Yola Samayoa RN [address] [place] [address] Wharfinger Chief Internal Medicine 07/12/23 04/17/24 documented as of this encounter
--- OUTSIDE RECORDS SUMMARY | 2025-07-31 07:52 | XMS_ITS | Encounter Summary ---
Author Organization [facility] Address [address] [place] [address] Care Team Providers Care Patient Manager Name Role Phone Choco Thomas MD Primary Care Provider + [phone] Encounter Details Date Type Department Care Team (Late Contact Info) Description 12/18/2024 Results Follow-Up [facility] RHEUMATOLOGY [address] [address] Lanre Stark, VENU [address] [phone] Social History Tobacco Use Types Packs/Day Years [...] Description 10/18/2025 8:30 AM EDT Office Visit [facility] RHEUMATOLOGY [address] [address] Riley Diop DO [address] [phone] documented as of this encounter Visit Diagnoses Not on filedocumented in this encounter Care Teams Patient Manager Relationship Specialty Start Date End Date Choco Thomas MD 1210 [facility] [address] [place] [address] PCP - General Adolescent Medicine 09/19/18 documented as of this encounter
--- OUTSIDE RECORDS SUMMARY | 2025-07-31 07:52 | XMS_ITS | Encounter Summary ---
Author Organization [facility] Address [address] [place] [address] Care Team Providers Care Tar Heater Name Role Phone Choco Thomas MD Primary Care Provider + [phone] Encounter Details Date Type Department Care Team (Late Contact Info) Description 01/04/2025 Results Follow-Up [facility] RHEUMATOLOGY [address] [address] Lanre Stark, VENU [address] [phone] Social History Tobacco Use Types Packs/Day Years [...] Description 10/18/2025 8:30 AM EDT Office Visit [facility] RHEUMATOLOGY [address] [address] Riley Diop DO [address] [phone] documented as of this encounter Visit Diagnoses Not on filedocumented in this encounter Care Teams Tar Heater Relationship Specialty Start Date End Date Choco Thomas MD 1210 [facility] [address] [place] [address] PCP - General Adolescent Medicine 09/19/18 documented as of this encounter
--- OUTSIDE RECORDS SUMMARY | 2025-07-31 07:52 | XMS_ITS | Clinical Summary ---
Author Organization [facility] Address [address] [place] [address] Care Team Providers Care Police Sergeant Name Role Phone Choco Thomas MD Primary Care Provider + [phone] Allergies No known active allergies Medications lisinopril [...] each 1 023 Active Continuous Blood Gluc Bridge Manager (Dexcom G7 Bridge Manager) deviceIndications :Type 1 diabetes mellitus with hypoglycemia and without coma USE ONCE DAILY 1 each 023 Active brimonidine (AlphaGAN P) 0.2 % ophthalmic solution Administer 1 drop into both eyes in the morning and 1 drop before bedtime. 024 Active glucose blood (Mineuch Ultra) test stripIndications: Type 1 diabetes mellitus [...] solution auto-injector Active neomycin-polymyxi n-dexamethamethas one (Polydex) 3.5-17023-2.1 ointment ophthalmic ointment Active simvastatin (Zocor) 40 [...] Department Care Team Description 07/12/2025 Refill [facility] Endocrinology [address] [place] [address] Mariza Anderson MBBS 07/04/2025 Refill [facility] Endocrinology [address] [place] [address] Giuseppe Suarez MD Subclinical hypothyroidism; Hyperlipidemia, unspecified hyperlipidemia type 07/04/2025 Refill [facility] Endocrinology [address] [place] [address] Ivan Palacios DO Hyperlipidemia, unspecified hyperlipidemia type 05/25/2025 Refill [facility] Endocrinology [address] [address] Giuseppe Suarez MD Type 1 diabetes mellitus with hypoglycemia and without coma 05/07/2025 Refill [facility] Endocrinology [address] [place] [address] Giuseppe Suarez MD 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 apto fied surface antigen) 05/09/2020 Influenza, injectable, quadrivalent [...] AM EDT Office Visit [facility] Endocrinology [address] [place], [place] [address] [address] (3), Giuseppe Suarez Fellow Health [...] Cancer Screening 10/14/2011 [facility]-Depression Screening 01/13/2024 01/12/2023 [id number] Vaccine ( season) 2025 05/19/2024, 05/08/2023, 01/23/2022, [...] [facility] Kit Expiration Date 12/06/26 [facility] Blood Venous blood specimen / Unknown 02/20/2025 8:08 AM EDT Giuseppe Suarez MD POINT OF CARE TEST ENTER/EDIT ORDERABLES Edited Result - Final Performing Organization Address City/State/[facility] Co de Phone Number [facility] [address] [place] [address] from Last 3 Months or Most Recently Relevant to Health Maintenance Insurance [employer] Care Teams Police Sergeant Relationship Specialty Start Date End Date Choco Thomas MD [address] [place] [address] [facility] - General 08/26/21
--- OUTSIDE RECORDS SUMMARY | 2025-07-31 07:52 | XMS_ITS ---
Author Organization [facility] Address [address] [place] [address] Care Team Providers Care Supervisor [employer] Name Role Phone Choco Thomas MD Primary Care Provider + [phone] Rheumatology - External Fill Status:Enrolled (Active) Start date:10/19/2024 Enrollment date:10/19/2024 Enrollment reason:Identified as being on target medication Current support & services provided:Benefits Investigation, External Pharmacy Dispensing Linked medications:Ixekizumab (Active) Linked problems:Psoriatic arthritis (Active) Overview [employer] insurance, must fill with [facility] Continued Care and Services Coordination
--- OUTSIDE RECORDS SUMMARY | 2025-07-31 07:52 | XMS_ITS | Encounter Summary ---
Author Organization [facility] Address [address] [place] [address] Care Team Providers Care Building Construction Foreman Name Role Phone Choco Thomas MD Primary Care Provider [phone] Encounter Details Date Type Department Care Team (Late st Contact Info) Description 07/04/2025 Refill [facility] Endocrinology [address] [place] [address] Giuseppe Suarez MD [address] [address] Subclinical hypothyroidism; Hyperlipidemia, unspecified hyperlipidemia [...] Description 10/16/2025 9:00 AM EDT Office Visit [facility] Endocrinology [address] [place] [address] (3), Giuseppe Suarez Fellow documented as of [...] documented as of this encounter Care Teams Building Construction Foreman Relationship Specialty Start Date End Date Choco Thomas MD [address] [place] [address] PCP - General 08/26/21 documented as of this encounter
[2025-07-31] MEDS: SODIUM CHLORIDE 0.9% 10ML SYR (RAD ONLY) 10 ML IV (08:19)
[2025-07-31] MEDS: IOPAMIDOL-370 (76%);100ML BOTTLE 75 ML IV (08:19)
== END 2025-07-31 23:59 | disposition home or self-care (01) ==
LOC: RAD 07:48
PROVIDERS: PCP Nurse Practitioner Family; Visit Provider Nurse Practitioner Family
DX: K43.9 Ventral hernia without obstruction or gangrene (principal); K22.89 Other specified disease of esophagus; L02.211 Cutaneous abscess of abdominal wall; R93.3 Abnormal findings on diagnostic imaging of other parts of digestive tract
CPT/HCPCS: 74178; Q9967

== ENCOUNTER 2025-08-03 08:14 | Outpatient (CLI) | payer BC, SELFPAY ==
--- OUTSIDE RECORDS SUMMARY | 2025-08-03 08:17 | XMS_ITS ---
Author Organization [facility] Address [address] [place] [address] Care Team Providers Care Fiberglass Boat Assembly Supervisor Name Role Phone Choco Thomas MD Primary Care Provider + [phone] Rheumatology - External Fill Status:Enrolled (Active) Start date:10/19/2024 Enrollment date:10/19/2024 Enrollment reason:Identified as being on target medication Current support & services provided:Benefits Investigation, External Pharmacy Dispensing Linked medications:Ixekizumab (Active) Linked problems:Psoriatic arthritis (Active) Overview [employer] insurance, must fill with [facility] Continued Care and Services Coordination
--- OUTSIDE RECORDS SUMMARY | 2025-08-03 08:17 | XMS_ITS | Encounter Summary ---
Author Organization [facility] Address [address] [place] [address] Care Team Providers Care Sales Recruiter Name Role Phone Choco Thomas MD Primary Care Provider [phone] Yola Samayoa RN Unavailable [phone] Reason for Visit * Reason Comments Med Refill Encounter Details Date Type Department Care Team (Late st Contact Info) Description 06/02/2021 Refill [facility] Endocrinology [address] [place] [address] Jeremiah Dior, DO [address] [address] Social History Tobacco Use Types [...] Description 10/16/2025 9:00 AM EDT [facility] [address] [place] [address] (3), Giuseppe Suarez Fellow documented as of this encounter Visit Diagnoses Not on filedocumented in this encounter Care Teams Sales Recruiter Relationship Specialty Start Date End Date Choco Thomas MD [facility] [address]A [address] PCP - General 08/26/21 Yola Samayao RN [address] [facility] [address] [place] [address] Fleet Maintenance Foreman Internal Medicine 07/12/23 04/17/24 documented as of this encounter
--- OUTSIDE RECORDS SUMMARY | 2025-08-03 08:17 | XMS_ITS | Encounter Summary ---
Author Organization [facility] Address [address] [place] [address] Care Team Providers Care Garment Parts Cutter Hand Name Role Phone Choco Thomas MD Primary Care Provider Yola Samayoa RN Unavailable [phone] Reason for Visit * Reason Comments Med Refill Encounter Details Date Type Department Care Team (Late st Contact Info) Description 02/15/2022 Refill [facility] Endocrinology [address] [place] [address] Jeremiah Dior, DO [address] [address] Type 1 diabetes mellitus with [...] 10/16/2025 9:00 AM EDT [facility] [address] [place] [address] (3), Giuseppe Suarez Fellow documented as of this encounter Visit Diagnoses Diagnosis Type 1 diabetes mellitus with other specified complication documented in this encounter Additional Health Concerns Assessment Noted Time A fall risk assessment has been complete d for the patient 01/14/2022 10:48 AM EDT documented as of this encounter Care Teams Garment Parts Cutter Hand Relationship Specialty Start Date End Date Choco Thomas MD [facility] 2A [address] PCP - General 08/26/21 Yola Samayoa RN [address] [facility] [address] [place] [address] Family Consumer Science Teacher Internal Medicine 07/12/23 04/17/24 documented as of this encounter
--- OUTSIDE RECORDS SUMMARY | 2025-08-03 08:17 | XMS_ITS | Encounter Summary ---
Author Organization [facility] Address [address] [phone] Care Team Providers Care Director Of Strategic Programs Name Role Phone Choco Thomas MD Primary Care Provider [phone] Reason for Visit * Reason Comments Med Refill Encounter Details Date Type Department Care Team (Late st Contact Info) Description 07/04/2025 Refill [facility] Endocrinology [address] [place] [phone] Ivan Palacios, DO [address] [phone] Hyperlipidemia, unspecified hyperlipidemia type Social History Tobacco [...] Description 10/16/2025 9:00 AM EDT [facility] Endocrinology [address] [place] [address] (3), Giuseppe Suarez Fellow documented as [...] documented as of this encounter Care Teams Director Of Strategic Programs Relationship Specialty Start Date End Date Choco Thomas MD [facility] [address]A [address] PCP - General 08/26/21 documented as of this encounter
--- OUTSIDE RECORDS SUMMARY | 2025-08-03 08:17 | XMS_ITS | Encounter Summary ---
Author Organization [facility] Address [address] [place] [address] Care Team Providers Care Truss Assembler Name Role Phone Choco Thomas MD Primary Care Provider [phone] Yola Samayoa RN Unavailable [phone] Reason for Visit * Reason Comments Med Refill Encounter Details Date Type Department Care Team (Late st Contact Info) Description 06/24/2023 [facility] [address] [place] [address] Rosy Casper MD [address] [address] Type 1 diabetes mellitus with [...] Description 10/16/2025 9:00 AM EDT Office Visit [facility] Endocrinology [address] [place] [address] (3), Giuseppe Suarez Fellow documented as of [...] documented as of this encounter Care Teams Truss Assembler Relationship Specialty Start Date End Date Choco Thomas MD [facility] 2A [address] PCP - General 08/26/21 Yola Samayoa RN [address] [facility] [address] [place] [address] Motor Brakeman Internal Medicine 07/12/23 04/17/24 documented as of this encounter
--- OUTSIDE RECORDS SUMMARY | 2025-08-03 08:17 | XMS_ITS | Encounter Summary ---
Author Organization [facility] Address [address] [place] [address] Care Team Providers Care Water Pump Operator Name Role Phone Choco Thomas MD Primary Care Provider + [phone] Encounter Details Date Type Department Care Team (Late Contact Info) Description 12/18/2024 Results Follow-Up [facility] RHEUMATOLOGY [address] [address] Lanre Stark, VENU [address] [phone] Social History Tobacco Use Types Packs/Day Years [...] Visit [facility] RHEUMATOLOGY [address] [address] Riley Diop DO [address] [phone] documented as of this encounter Visit Diagnoses Not on filedocumented in this encounter Care Teams Water Pump Operator Relationship Specialty Start Date End Date Choco Thomas MD [address] [facility] [address] [place] [address] PCP - General Adolescent Medicine 09/19/18 documented as of this encounter
--- OUTSIDE RECORDS SUMMARY | 2025-08-03 08:17 | XMS_ITS | Encounter Summary ---
[facility] Address [address] [place] [address] Care Team Providers Care Circular Sawyer Stone Name Role Phone Choco Thomas MD Primary Care Provider + [phone] Encounter Details Date Type Department Care Team (Late st Contact Info) Description 06/06/2025 Telephone [facility] RHEUMATOLOGY [address] [place] [address] Jesus Willis, PharmD [address] [place] [address] Social History Tobacco Use Types Packs/Day Years [...] Approving PA: [facility] PA Number: [id number] PA Effective Dates: 05/07/25-06/06/26 Dispensing Pharmacy[facility] [...] Description 10/18/2025 8:30 AM EDT Office Visit [facility] RHEUMATOLOGY [address] [phone] Riley Diop DO 330 [facility] 100 [place] [address] documented as of this encounter Visit Diagnoses Not on filedocumented in this encounter Care Teams Circular Sawyer Stone Relationship Specialty Start Date End Date Choco Thomas MD 1210 [facility] [address] [facility] 2A [place] [address] PCP - General Adolescent Medicine 09/19/18 documented as of this encounter
--- OUTSIDE RECORDS SUMMARY | 2025-08-03 08:17 | XMS_ITS | Clinical Summary ---
Author Organization [facility] Address [address] [place] [address] Care Team Providers Care Indoor Landscape Architect Name Role Phone Choco Thomas MD Primary Care Provider [phone] Allergies No known active allergies Medications lisinopril [...] each 1 023 Active Continuous Blood Gluc Building Maintenance Superintendent (Dexcom G7 Building Maintenance Superintendent) deviceIndications :Type 1 diabetes mellitus with hypoglycemia and without coma USE ONCE DAILY 1 each 023 Active brimonidine (AlphaGAN P) 0.2 % ophthalmic solution Administer 1 drop into both eyes in the morning and 1 drop before bedtime. 024 Active glucose blood (BluPandauch Ultra) test stripIndications: Type 1 diabetes mellitus [...] solution auto-injector Active neomycin-polymyxi n-dexamethamethas one (Polydex) 3.5-23173-7.1 ointment ophthalmic ointment Active simvastatin (Zocor) 40 MG tablet Take 1 tablet by mouth nightly. Active Glucagon, rDNA, (Glucagon Emergency) 1 MG [...] DOSE OF 30. 15 mL 1 Active Continuous Glucose Sensor (Dexcom G7 Sensor) miscIndications:T ype 1 diabetes mellitus with other ophthalmic complication CHANGE 1 SENSOR EVERY 10 DAYS 9 each 025 Active Insulin Lispro Reagan KwikPen 100 UNIT/ML SC injection pen INJECT BEFORE EACH MEAL, 1 UNIT FOR EVERY 30 GRAMS CARBOHYDRATE, PLUS 1:70 CORRECTION FOR HIGH BLOOD SUGAR, MAX DAILY DOSE 30 UNITS, Normal 15 mL 2 025 2024 Discontinued Continuous Glucose Sensor (Dexcom G7 Sensor) miscIndications:T ype 1 diabetes mellitus with other ophthalmic complication CHANGE 1 SENSOR EVERY 10 DAYS 9 each 025 2024 Discontinued Active Problems Problem Noted Date Diagnosed Date Hyperlipidemia 01/14/2022 Psoriatic arthritis 08/26/2021 Other neutropenia 10/17/2018 Subclinical hypothyroidism 03/30/2018 Diabetic hypoglycemia 05/09/2014 Type 1 diabetes mellitus with other specified co mplication 03/08/2013 Encounters Date Type Department Care Team Description 08/01/2025 Refill [facility] Endocrinology [address] [place] [address] Giuseppe Suarez MD 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 07/12/2025 Refill [facility] Endocrinology [address] [place] [address] Mariza Anderson MBBS 07/04/2025 Refill [facility] Endocrinology [address] [place] [phone] Giuseppe Suarez MD Subclinical hypothyroidism; Hyperlipidemia, unspecified hyperlipidemia type 07/04/2025 Refill [facility] Endocrinology [address] [place] [address] Ivan Palacios, DO Hyperlipidemia, unspecified hyperlipidemia type 05/25/2025 Refill [facility] Endocrinology [address] [place] [address] Giuseppe Suarez MD Type 1 diabetes mellitus with hypoglycemia and without coma 05/07/2025 Refill [facility] Endocrinology [address] [place] [address] Giuseppe Suarez MD 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 ([facility]) from Last 3 Months Immunizations Immunization Administration [...] Visit [facility] Endocrinology [address] [place] [phone] (3), Giuseppe Suarez Fellow Health Maintenance Due [...] Cancer Screening 10/14/2011 [facility]-Depression Screening 01/13/2024 01/12/2023 [id number] Vaccine ( season) 2025 05/19/2024, 05/08/2023, 01/23/2022, [...] 1 diabetes mellitus with other ophthalmic complication ([facility]) from Last 3 Months or Most Recently Relevant to Health Maintenance Results * POCT glycosylated hemoglobin (Hb A1C) (02/20/2025 8:08 AM EDT) POCT Hemoglobin A1C 4.9 <5.7% Non-Diabet ic % [facility] Kit Lot Number [id number] [facility] Kit Expiration Date 12/06/26 [email or web address] Blood Venous blood specimen / Unknown 02/20/2025 8:08 AM EDT Giuseppe Suarez MD POINT OF CARE TEST ENTER/EDIT ORDERABLES Edited Result - Final Performing Organization Address City/State/[facility] Co de Phone Number [facility] [address] [place] [phone] from Last 3 Months or Most Recently Relevant to Health Maintenance Insurance [employer] Care Teams Indoor Landscape Architect Relationship Specialty Start Date End Date Choco Thomas MD [facility] 2A [id number] PCP - General 08/26/21
--- OUTSIDE RECORDS SUMMARY | 2025-08-03 08:17 | XMS_ITS | Encounter Summary ---
Author Organization [facility] Address [address] 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 Appt 10/16/2025. 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
--- OUTSIDE RECORDS SUMMARY | 2025-08-03 08:17 | XMS_ITS | Encounter Summary ---
Author Organization [facility] Address [address] [id number] Care Team Providers Care Administrative Tech Name Role Phone Choco Thomas MD Primary Care Provider [phone] Yola Samayoa RN Unavailable [phone] Reason for Visit * Reason Comments Med Refill Encounter Details Date Type Department Care Team (Late st Contact Info) Description 09/21/2022 Refill [facility] Endocrinology [address] [place] [address] Anthony Celis, DO [address] [phone] Subclinical hypothyroidism Social History Tobacco Use Types [...] Description 10/16/2025 9:00 AM EDT Office Visit [facility] Endocrinology [address] [place] [address] (3)Giuseppe Fellow documented as of this encounter Visit Diagnoses Diagnosis Subclinical hypothyroidism Other specified acquired hypothyroidism documented in this encounter Additional Health Concerns Assessment Noted Time A fall risk assessment has been complete d for the patient 05/19/2022 9:32 AM EDT documented as of this encounter Care Teams Administrative Tech Relationship Specialty Start Date End Date Choco Thomas MD [facility] 2A [address] PCP - General 08/26/21 Yola Samayoa RN [address] [facility] [address] [place] [address] Taker Off Internal Medicine 07/12/23 04/17/24 documented as of this encounter
--- OUTSIDE RECORDS SUMMARY | 2025-08-03 08:17 | XMS_ITS | Encounter Summary ---
Author Organization [facility] Address [address] [place] [id number] Care Team Providers Care Store Facility Technician Name Role Phone Choco Thomas MD Primary Care Provider [phone] Reason for Visit * Reason Onset Date Comments Med Refill 04/18/2025 Encounter Details Date Type Department Care Team (Late st Contact Info) Description 04/18/2025 Refill [facility] RHEUMATOLOGY [address] [address] Riley Diop DO [address] [address] Social History Tobacco Use Types Packs/Day Years [...] Description 10/18/2025 8:30 AM EDT Office Visit [facility] RHEUMATOLOGY [address] [address] Riley Diop DO [address] [phone] documented as of this encounter Visit Diagnoses Not on filedocumented in this encounter Care Teams Store Facility Technician Relationship Specialty Start Date End Date Choco Thomas MD [address] [place] [facility] [address] [place] [address] PCP - General Adolescent Medicine 09/19/18 documented as of this encounter
--- OUTSIDE RECORDS SUMMARY | 2025-08-03 08:17 | XMS_ITS | Encounter Summary ---
Author Organization [facility] Address [address] [place] [address] Care Team Providers Care Wearing Apparel Presser Name Role Phone Choco Thomas MD Primary Care Provider + [phone] Encounter Details Date Type Department Care Team (Late Contact Info) Description 12/13/2024 Results Follow-Up [facility] RHEUMATOLOGY [address] [address] Lanre Stark, VENU [address] [phone] Social History Tobacco Use Types Packs/Day Years [...] Description 10/18/2025 8:30 AM EDT Office Visit [facility] RHEUMATOLOGY [address] [address] Riley Diop DO [address] [phone] documented as of this encounter Visit Diagnoses Not on filedocumented in this encounter Care Teams Wearing Apparel Presser Relationship Specialty Start Date End Date Choco Thoams MD [address] [place] [facility] [address] [place] [address] PCP - General Adolescent Medicine 09/19/18 documented as of this encounter
--- OUTSIDE RECORDS SUMMARY | 2025-08-03 08:17 | XMS_ITS | Encounter Summary ---
Author Organization [facility] Address [address] [place] [address] Care Team Providers Care Microelectronics Assembler Name Role Phone Choco Thomas MD Primary Care Provider [phone] Encounter Details Date Type Department Care Team (Late st Contact Info) Description 07/04/2025 Refill [facility] Endocrinology [address] [place] [address] Giuseppe Suarez MD [address] [address] Subclinical hypothyroidism; Hyperlipidemia, unspecified hyperlipidemia [...] Description 10/16/2025 9:00 AM EDT Office Visit [facility] Endocrinology [address] [place] [address] (3), Giuseppe Suarez Fellow documented as of [...] documented as of this encounter Care Teams Microelectronics Assembler Relationship Specialty Start Date End Date Choco Thomas MD [facility] [address] PCP - General 08/26/21 documented as of this encounter
--- OUTSIDE RECORDS SUMMARY | 2025-08-03 08:17 | XMS_ITS | Clinical Summary ---
Author Organization [facility] Address [address] [place] [address] Care Team Providers Care Culinary Internship Name Role Phone Choco Thomas MD Primary Care Provider + [phone] Allergies No known active allergies Medications lisinopril [...] tablet by mouth. 4 Active Continuous Glucose Lubricating Machine Tender (Dexcom G7 Lubricating Machine Tender) device Daily. use as directed 4 Active [...] Type Department Care Team Description 06/06/2025 Telephone [facility] RHEUMATOLOGY [address] [address] Jesus Willis, LynneD from Last [...] [facility] RHEUMATOLOGY [address] [address] Riley Diop DO 330 [facility] [address] [place] [address] Health Maintenance Due Date Last Done Comments [...] Completed 04/09/2024, 04/10, 02/23/2023 Insurance [employer] [place] [id number] [facility] PPO Care Teams Culinary Internship Relationship Specialty Start Date End Date Choco Thomas MD [address] [facility] [address] [place] PCP - General Adolescent Medicine 09/19/18
--- OUTSIDE RECORDS SUMMARY | 2025-08-03 08:17 | XMS_ITS | Encounter Summary ---
Author Organization [facility] Address [address] [id number] Care Team Providers Care Sociology Faculty Member Name Role Phone Choco Thomas MD Primary Care Provider [phone] Reason for Visit * Reason Comments Med Refill Encounter Details Date Type Department Care Team (Late st Contact Info) Description 07/12/2025 Refill [facility] Endocrinology [address] [place] [phone] Mariza Anderson MBBS [address] [place] [address] Social History Tobacco Use Types [...] Miscellaneous Notes * Telephone Encounter - Katina Loera, PharmD - 07/13/2025 9:13 AM EST 1 medication(s) has been approved per protocol. documented in this encounter Plan of Treatment Upcoming Encounters Date Type Department Care Team (Late st Contact Info) Description 10/16/2025 9:00 AM EDT [facility] [address] [place] [phone] (3), Giuseppe Suarez Fellow documented as of this encounter Visit Diagnoses Not on filedocumented in this encounter Additional Health Concerns Assessment Noted Time A fall risk assessment has been complete d for the patient 06/15/2023 10:41 AM EST A Body Mass Index follow-up plan has been documented for the patient 03/06/2025 8:48 AM EDT documented as of this encounter Care Teams Sociology Faculty Member Relationship Specialty Start Date End Date Choco Thomas MD [facility] 2A [id number] PCP - General 08/26/21 documented as of this encounter
--- OUTSIDE RECORDS SUMMARY | 2025-08-03 08:17 | XMS_ITS | Encounter Summary ---
Author Organization [facility] Address [address] [place] [address] Care Team Providers Care Sewing Demonstrator Name Role Phone Choco Thomas MD Primary Care Provider + [phone] Encounter Details Date Type Department Care Team (Late Contact Info) Description 01/04/2025 Results Follow-Up [facility] RHEUMATOLOGY [address] [address] Lanre Stark, VENU [address] [phone] Social History Tobacco Use Types Packs/Day Years [...] Visit [facility] RHEUMATOLOGY [address] [address] Riley Diop DO [address] [phone] documented as of this encounter Visit Diagnoses Not on filedocumented in this encounter Care Teams Sewing Demonstrator Relationship Specialty Start Date End Date Choco Thomas MD [address] [facility] [address] [place] [address] PCP - General Adolescent Medicine 09/19/18 documented as of this encounter
--- NOTE | 2025-08-03 08:30 | MM_ITS ---
PROCEDURE INFORMATION: Exam: MG Bilateral Screening 3D Mammography Exam date and time: 08/03/2025 8:21 AM Age: 64 years old Clinical indication: Screening mammogram TECHNIQUE: Imaging protocol: Bilateral Screening tomosynthesis and 2D mammography including computer-aided detection (CAD) when performed. COMPARISON: 1. MG MM DIG SCREENING MAMM BI W/CAD 07/14/2024 10:41 AM 2. MG MM DIG SCREENING MAMM BI W/CAD 06/07/2023 7:54 AM 3. MG MM DIG SCREENING MAMM BI W/CAD 05/15/2022 8:26 AM FINDINGS: MAMMOGRAPHY: Breast composition: The breast tissue is extremely dense, which lowers the sensitivity of mammography. Mass: None. Architectural distortion: No new or suspicious architectural distortion. Calcifications: No new or suspicious calcifications are present Asymmetric density: No new or suspicious asymmetric density is present Skin thickening: None. Axillary adenopathy: None. IMPRESSION: No mammographic evidence of malignancy. Recommend annual screening mammography unless otherwise clinically indicated. ASSESSMENT: BI-RADS category 1: Negative.
== END 2025-08-03 23:59 | disposition home or self-care (01) ==
LOC: RAD 08:15
PROVIDERS: PCP Nurse Practitioner Family; Visit Provider Nurse Practitioner Obstetrics & Gynecology
DX: Z12.31 Encounter for screening mammogram for malignant neoplasm of breast (principal); R92.343 Mammographic extreme density, bilateral breasts
CPT/HCPCS: 77063; 77067